=== PATIENT | female | born 1945 | race Caucasian/White ===

== ENCOUNTER 2019-12-23 15:12 | Outpatient (CLI) | payer MEDICARE, BC, SELFPAY ==
[2019-12-23 17:16] LABS: Vitamin D 25 Hydroxy 59.8 ng/mL
== END 2019-12-23 15:13 | disposition home or self-care (01) ==
LOC: ANHLAB 15:15
PROVIDERS: PCP Family Medicine Adolescent Medicine; Visit Provider Nurse Practitioner
DX: E55.9 Vitamin D deficiency, unspecified (principal)
CPT/HCPCS: 36415; 82306

== ENCOUNTER → 2020-04-12 14:06 | Outpatient (CLI) | payer MEDICARE, BC, SELFPAY ==
--- NOTE | ~2020-04-12 | MM_ITS ---
EXAMINATION: MM screening [facility] BI w jin HISTORY: Screening mammogram TECHNIQUE: Craniocaudal and mediolateral oblique 3-D tomosynthesis images were obtained and synthetic 2-D images were generated. CAD analysis was submitted and interpreted. COMPARISON: 02/03/2019, 08/14/2018, 01/30/2018, 09/01/2017 BREAST PARENCHYMAL COMPOSITION: There are scattered areas of fibroglandular density. FINDINGS: Scattered benign-appearing calcifications are present. Stable surgical changes are present in the upper outer quadrant of the right breast. There is no evidence of suspicious mass, calcificati on, or architectural distortion to suggest malignancy in either breast. There has been no suspicious interval change. IMPRESSION: 1. No mammographic evidence of malignancy. 2. Recommend routine screening mammography in one year. BI-RADS Category 2: Benign finding(s). Reviewed, dictated and finalized at location A.
== END ==
PROVIDERS: Visit Provider Nurse Practitioner
DX: Z12.31 Encounter for screening mammogram for malignant neoplasm of breast (principal)
CPT/HCPCS: 77063; 77067

== ENCOUNTER 2020-05-29 08:35 | Outpatient (CLI) | payer MEDICARE, BC, SELFPAY ==
[2020-05-29 11:46] LABS: Hemoglobin A1C 5.9 % (<5.7)
[2020-05-29 11:53] LABS: Alanine Aminotransferase 25 U/L (4-35); Alkaline Phosphatase 54 U/L (38-126); Anion Gap 6 mmol/L (8-16); Aspartate Amino Transferase 56 U/L (14-36); Blood Urea Nitrogen 17 mg/dL (7-17); Calcium 9.4 mg/dL (8.4-10.2); Carbon Dioxide 32 mmol/L (22-30); Chloride 103 mmol/L (98-107); Cholesterol 185 mg/dL (0-200); Estimated Glomerular Filt Rate > 60; Glucose 131 mg/dL (65-105); HDL Direct 59 mg/dL; Sodium 141 mmol/L (137-145); Triglycerides 147 mg/dL (<150)
[2020-05-29 12:04] LABS: LDL Cholesterol Direct 110 mg/dL
== END 2020-05-29 08:36 | disposition home or self-care (01) ==
PROVIDERS: PCP Family Medicine Adolescent Medicine; Referring Provider Internal Medicine Medical Oncology; Visit Provider Family Medicine Adolescent Medicine
DX: E78.00 Pure hypercholesterolemia, unspecified (principal); E11.9 Type 2 diabetes mellitus without complications; I10 Essential (primary) hypertension; F03.90 Unspecified dementia, unspecified severity, without behavioral disturbance, psychotic disturbance, mood disturbance, and anxiety
CPT/HCPCS: 36415; 80053; 80061; 82607; 83036; 84443

== ENCOUNTER 2020-12-25 14:30 | Outpatient (CLI) | payer MEDICARE, BC, SELFPAY ==
[2020-12-25 17:52] LABS: Vitamin D 25 Hydroxy 68.5 ng/mL
== END 2020-12-25 14:31 | disposition home or self-care (01) ==
PROVIDERS: PCP Family Medicine Adolescent Medicine; Visit Provider Obstetrics & Gynecology Gynecology
DX: E55.9 Vitamin D deficiency, unspecified (principal)
CPT/HCPCS: 36415; 82306

== ENCOUNTER 2021-02-21 09:52 | Outpatient (CLI) | payer MEDICARE, BC, SELFPAY ==
[2021-02-21 10:34] LABS: Alanine Aminotransferase 19 U/L (4-35); Albumin Level 3.7 g/dL (3.5-5.1); Alkaline Phosphatase 50 U/L (38-126); Anion Gap 8 mmol/L (8-16); Aspartate Amino Transferase 45 U/L (14-36); Bilirubin,Total 0.8 mg/dL (0.2-1.3); Blood Urea Nitrogen 15 mg/dL (7-17); Calcium 9.1 mg/dL (8.4-10.2); Carbon Dioxide 26 mmol/L (22-30); Chloride 102 mmol/L (98-107); Cholesterol 166 mg/dL (0-200); Estimated Glomerular Filt Rate > 60; Glucose 171 mg/dL (65-110); HDL Direct 53 mg/dL; Potassium 3.9 mmol/L (3.4-5.0); Sodium 136 mmol/L (137-145); Triglycerides 134 mg/dL (<150)
[2021-02-21 10:46] LABS: LDL Cholesterol Direct 88 mg/dL
[2021-02-21 11:32] LABS: Hemoglobin A1C 6.5 % (<5.7)
== END 2021-02-21 09:53 | disposition home or self-care (01) ==
LOC: ANHLAB 09:59
PROVIDERS: PCP Family Medicine Adolescent Medicine; Visit Provider Family Medicine Adolescent Medicine
DX: E78.00 Pure hypercholesterolemia, unspecified (principal); E11.9 Type 2 diabetes mellitus without complications; I10 Essential (primary) hypertension
CPT/HCPCS: 36415; 80053; 80061; 83036

== ENCOUNTER → 2021-02-27 14:46 | Outpatient (CLI) | payer MEDICARE, BC, SELFPAY ==
--- NOTE | ~2021-02-27 | MR_ITS ---
EXAMINATION: MR shoulder LT wo con DATE: 02/27/2021 15:44 INDICATION: Left shoulder pain post injury 4 months prior TECHNIQUE: Magnetic resonance imaging (MRI) of the left shoulder was performed without intravenous co ntrast. Sequences included axial PD-weighted FS FSE, coronal oblique PD-weighted FS FSE, coronal obli que T2-weighted FS FSE, sagittal PD-weighted FS FSE, and sagittal T1-weighted SE. COMPARISON: None. FINDINGS: Coracoacromial arch: The acromion undersurface is curved in morphology (type II). The coracoacromial ligament is normal. M oderate acromioclavicular osteoarthritis. Rotator cuff: Moderate supraspinatus and mild infraspinatus tendinopathy. There is a tear at the critical zone of t he supraspinatus tendon with an 11 x 11 mm tear defect demonstrating fluid signal intensity surroundi ng small amount of irregular frayed and lax appearing tendon fibers which are of indeterminate functi onal integrity. The tear involves portions of both the articular and bursal side of the tendon, likel y with full-thickness communication. The teres minor tendon is normal. Mild subscapularis tendinopath y without discrete tear. No asymmetric rotator cuff muscle atrophy. Biceps tendon, glenoid labrum and glenohumeral cartilage: Mild tendinopathy at the junction of the intra-articular and extra articular portion of the long head biceps tendon without discrete tear. Glenoid labrum is normal. Glenohumeral cartilage is normal. Fluid: Small glenohumeral joint effusion with proportional small amount of fluid extending along the long he ad biceps tendon sheath. 5 mm loose body at the posterior axillary recess. Small amount of fluid kavita ng with mild synovitis in the subacromial/subdeltoid bursa consistent with mild bursitis. There is al so a small joint effusion at the acromioclavicular joint which potentially communicates with the suba cromial/subdeltoid bursa. Bones: Bone alignment is normal. No fracture or pathologic marrow replacing process. Mild to moderate cystic changes at the greater tuberosity, both with the superior facet and more prominently at the tear zon e along the posterior greater tuberosity. IMPRESSION: 1. Moderate supraspinatus tendinopathy with 11 x 11 mm tear defect at the critical zone which is eith er full-thickness or high-grade partial width both articular and bursal surface involvement. It is un clear whether the irregular appearing ligament fibers within the tear defect remain either intact or with any significant degree of functional integrity. 2. Mild tendinopathy of the long head biceps tendon without discrete tear. 3. Moderate acromioclavicular osteoarthritis. 4. Mild subacromial/subdeltoid bursitis. Reviewed, dictated and finalized at location A. IMPRESSION: 1. Moderate supraspinatus tendinopathy with 11 x 11 mm tear defect at the criti april zone which is either full-thickness or high-grade partial width both articu lar and bursal surface involvement. It is unclear whether the irregular appeari ng ligament fibers within the tear defect remain either intact or with any sign ificant degree of functional integrity. 2. Mild tendinopathy of the long head biceps tendon without discrete tear. 3. Moderate acromioclavicular osteoarthritis. 4. Mild subacromial/subdeltoid bursitis.
== END ==
PROVIDERS: PCP Family Medicine Adolescent Medicine; Visit Provider Family Medicine Adolescent Medicine
DX: M25.512 Pain in left shoulder (principal); S46.012A Strain of muscle(s) and tendon(s) of the rotator cuff of left shoulder, initial encounter; M75.82 Other shoulder lesions, left shoulder; M19.012 Primary osteoarthritis, left shoulder; M75.52 Bursitis of left shoulder
CPT/HCPCS: 73221

== ENCOUNTER → 2021-04-14 10:37 | Outpatient (CLI) | payer MEDICARE, BC, SELFPAY ==
--- NOTE | ~2021-04-14 | MM_ITS ---
EXAMINATION: MM screening [facility] BI w jin HISTORY: Screening mammogram TECHNIQUE: Craniocaudal and mediolateral oblique 3-D tomosynthesis images were obtained and synthetic 2-D images were generated. CAD analysis was submitted and interpreted. COMPARISON: 04/12/2020, 02/03/2019 BREAST PARENCHYMAL COMPOSITION: There are scattered areas of fibroglandular density. FINDINGS: Scattered benign-appearing calcifications are present. There is chronic skin thickening of the left breast, consistent with sequela of radiation treatment. There is no evidence of suspicious m ass, calcification, or architectural distortion to suggest malignancy in either breast. There has bee n no suspicious interval change. IMPRESSION: 1. No mammographic evidence of malignancy. 2. Recommend routine screening mammography in one year. BI-RADS Category 2: Benign finding(s). Reviewed, dictated and finalized at location A.
== END ==
PROVIDERS: Visit Provider Obstetrics & Gynecology Gynecology
DX: Z12.31 Encounter for screening mammogram for malignant neoplasm of breast (principal)
CPT/HCPCS: 77063; 77067

== ENCOUNTER 2021-05-15 10:00 | Outpatient (RCR) | payer MEDICARE, BC, SELFPAY ==
--- NOTE | 2021-03-20 12:28 | PTOPEVAL ---
PHYSICAL THERAPY EVALUATION AND PLAN OF CARE Thank you for referring Marian Alcazar to [facility].? The patient is scheduled to be seen for therapy? 2x/week for 4 weeks. Please review, sign, date and return this plan of care TONO. I agree with and certify that the following plan of care is medically necessary. Referring Physician Date Attending Provider: Prashant Ramirez MD Evaluation Diagnosis low back pain Onset 11/11/2020 Subjective Information Marian reports that she has Query Text:As Reported By Patient/ had back pain for the last 4-5 Family months. She reports a lot of pain in the left glutes and across low back. The worse is when she has to be on her feet for a long time, walking in the store, carrying groceries, or bending over and doing laundry. There is some soreness in the left glutes when sitting - has to sit a little perched. First thing in the morning is typically ok. no injury to the back, but she notes she has spent a lot more time in her garden this summer doing a lot more bending over forward Self Report Pain Assessment Left Back Reported Pain Level 4 Pain Frequency Chronic,Intermittent Greatest Pain Intensity 9 Pain Aggravating Factors Bending,Lifting,Walking,Weight Bearing/Standing Pain Behaviors None Pain Score Pain Score 4: Self Report Interventions Used Interventions Used By Clinicians Exercise,Heat,Manual Therapy Techniques Pain Relief Interventions Used By Heat Patient Other Alleviating Interventions biofreeze Cervical and Lumbar ROM Lumbar ROM Lumbar Flexion Active Mid Vanegas Query Text:Hands to: Lateral Rotation Right (0-45) 40 Query Text:Active in Degrees Lateral Rotation Left (0-45) 25 Query Text:Active in Degrees Lumbar Comments hinging at L2 with extension Cervical and Lumbar Muscle Testing Lumbar Strength Upper Abdominal Strength 3-Fair- Lower Abdominal Strength 2+Poor+ Lower Extremity Muscle Strength Testing Hip Strength Right Hip Flexion Strength 3+ Fair + Hip Extension Strength 3- Fair - Hip Abduction Strength 3- Fair - Left Hip Flexion Strength 3 Fair Hip Ext
--- NOTE | 2021-04-05 09:32 | PCPTNOTE ---
Patient called & cancelled scheduled appointment this date due to illness, coughing and can't breath with mask on.
--- NOTE | 2021-04-16 11:57 | PTOPEVAL ---
PHYSICAL THERAPY PROGRESS REPORT Thank you for referring Marian Alcazar to [facility].? The patient is scheduled to be seen for therapy? 2x/week for 4 weeks. Please review, sign, date and return this plan of care TONO. I agree with and certify that the following plan of care is medically necessary. Referring Physician Date Attending Provider: Prashant Ramirez MD Progress Diagnosis low back pain Onset 11/11/2020 Subjective Information States that her back/hip is Query Text:As Reported By Patient/ doing overall better. Reports Family that the exercises do seem to help. This morning she is a bit tender but overall she thinks the left shoulder hurts worse than the back/hip. Left shoulder is a little sore possibly because of sleeping. States that she was working on [employer] up on [employer] Pain Scale Used Numeric (1 - 10) Self Report Pain Assessment Left Shoulder(s) Reported Pain Level 4 Pain Description Aching Pain Frequency Acute Left Back Reported Pain Level 1 Pain Frequency Chronic,Intermittent Pain Aggravating Factors Bending,Lifting,Walking,Weight Bearing/Standing Pain Behaviors None Pain Score Pain Score 4,1: Self Report Interventions Used Interventions Used By Clinicians Exercise,Heat,Manual Therapy Techniques Pain Relief Interventions Used By Heat Patient Other Alleviating Interventions biofreeze Cervical and Lumbar ROM Lumbar ROM Lumbar Flexion Active Mid [place]egas Query Text:Hands to: Lateral Rotation Right (0-45) 40 Query Text:Active in Degrees Lateral Rotation Left (0-45) 30 Query Text:Active in Degrees Lumbar Comments hinging at L2 with extension Upper Extremity Range of Motion Scapular/ Shoulder Range of Motion Left Shoulder Flexion - Active 140 Shoulder Abduction - Active 140 Shoulder Medial Rotation - Active T12 Query Text:Reach Behind the Back Shoulder Lateral Rotation - Active back of head Query Text:Reach Behind the Head Scapular/Shoulder Range of Motion she is hesitant to move but Comments otherwise moves well; there is some catching and popping in the left shoulder Lower Extremity Muscle Strength Testing Hip Strength Right Hip Flexion Strength 4- Good - Hip Extension Strength 3+ Fair + Hip Abduction Str
--- NOTE | 2021-05-15 10:49 | PTOPEVAL ---
PHYSICAL THERAPY DISCHARGE NOTE Thank you for referring Marian Alcazar to [facility].? Please review, sign, date and return this plan of care TONO. I agree with and certify that the following plan of care is medically necessary. Referring Physician Date Attending Provider: Prashant Ramirez MD Discharge Diagnosis low back pain Onset 11/11/2020 Subjective Information States that she is overall Query Text:As Reported By Patient/ doing really well. Dressing a Family lot better . Does not trust her left arm to hold something heavier to the 2nd shelf in the cabinet. Still has an episode of pain every couple of days but cannot speak to why unless it is that she is feeling better and tries to do more but she is really not sure. Interventions Used Interventions Used By Clinicians Exercise,Heat,Manual Therapy Techniques Pain Relief Interventions Used By Heat Patient Other Alleviating Interventions biofreeze Cervical and Lumbar ROM Lumbar ROM Lumbar Flexion Active Mid Vanegas,Ankle Query Text:Hands to: Lateral Rotation Right (0-45) 40 Query Text:Active in Degrees Lateral Rotation Left (0-45) 40 Query Text:Active in Degrees Upper Extremity Range of Motion Scapular/ Shoulder Range of Motion Left Shoulder Flexion - Active 155 Shoulder Abduction - Active 155 Shoulder Medial Rotation - Active T12 Query Text:Reach Behind the Back Shoulder Lateral Rotation - Active 65 Shoulder Lateral Rotation - Active back of head Query Text:Reach Behind the Head Scapular/Shoulder Range of Motion notes some popping in the Comments shoulder at times Lower Extremity Muscle Strength Testing Hip Strength Right Hip Flexion Strength 4+ Good + Hip Extension Strength 4 Good Hip Abduction Strength 4 Good Left Hip Flexion Strength 4+ Good + Hip Extension Strength 4 Good Hip Abduction Strength 4 Good Knee Strength Bilateral Knee Flexion Strength 5 Normal Knee Extension Strength 5 Normal Upper Extremity Muscle Strength Testing Scapular/Shoulder Left Shoulder Flexion Strength 4+ Good + Shoulder Abduction Strength 4+ Good + Shoulder Medial Rotation Strength 5 Normal Shoulder Lateral Rotation Strength 4+ Good + Muscle Length Testing Piriformis w/Hip Flexion >90 Degrees (R) Mild Tightness,(L) Mild Tightness Left Hamstring Length -50 Que
== END 2021-05-15 15:50 | disposition home or self-care (01) ==
LOC: ANHPT 10:00
PROVIDERS: PCP Family Medicine Adolescent Medicine; Visit Provider Family Medicine Adolescent Medicine
DX: M54.5 Low back pain (principal)
CPT/HCPCS: 97110; 97140; 97162

== ENCOUNTER 2021-12-31 11:00 | Outpatient (CLI) | payer MEDICARE, BC, SELFPAY ==
[2021-12-31 12:07] LABS: Vitamin D 25 Hydroxy 67.2 ng/mL
== END 2021-12-31 11:01 | disposition home or self-care (01) ==
LOC: ANHLAB 11:05
PROVIDERS: Visit Provider Obstetrics & Gynecology Gynecology
DX: Z13.21 Encounter for screening for nutritional disorder (principal); E55.9 Vitamin D deficiency, unspecified
CPT/HCPCS: 36415; 82306

== ENCOUNTER 2022-04-24 08:55 | Outpatient (CLI) | payer MEDICARE, BC, SELFPAY ==
[2022-04-24 09:27] LABS: Alanine Aminotransferase 22 U/L (6-35); Albumin Level 3.7 g/dL (3.5-5.1); Alkaline Phosphatase 52 U/L (38-126); Anion Gap 9 mmol/L (8-16); Aspartate Amino Transferase 54 U/L (14-36); Bilirubin,Total 0.9 mg/dL (0.2-1.3); Blood Urea Nitrogen 11 mg/dL (7-17); Calcium 8.5 mg/dL (8.4-10.2); Carbon Dioxide 27 mmol/L (22-30); Chloride 105 mmol/L (98-107); Cholesterol 157 mg/dL (0-200); Estimated Glomerular Filt Rate > 60; Glucose 134 mg/dL (65-110); HDL Direct 60 mg/dL; Potassium 3.7 mmol/L (3.4-5.0); Sodium 141 mmol/L (137-145); Triglycerides 104 mg/dL (<150)
[2022-04-24 09:38] LABS: LDL Cholesterol Direct 83 mg/dL
[2022-04-24 09:46] LABS: Hemoglobin A1C 6.9 % (<5.7)
== END 2022-04-24 08:56 | disposition home or self-care (01) ==
PROVIDERS: PCP Family Medicine Adolescent Medicine; Visit Provider Physician Assistant
DX: E11.9 Type 2 diabetes mellitus without complications (principal); E78.00 Pure hypercholesterolemia, unspecified; I10 Essential (primary) hypertension
CPT/HCPCS: 36415; 80053; 80061; 83036

== ENCOUNTER 2022-05-10 08:21 | Outpatient (CLI) | payer MEDICARE, BC, SELFPAY ==
--- NOTE | 2022-05-10 08:46 | ECHO_ITS ---
Patient Info Name: Marian Alcazar Age: 76 years : 1945 Gender: Female Ht: 63 in Wt: 141 lbs BSA: 1.70 m2 HR: 68 bpm BP: 151 / 69 mmHg Technical Quality: Good Exam Date: 05/10/2022 9:08 AM Exam Location: [facility] Patient Status: Outpatient Admit Date: 05/10/2022 Staff Ordering Physician: Meryl Wolf PA-C Digital Associate: Penny Atkins RDCS Attending Provider: Meryl Wolf PA-C Referring Physician: Maryann SHIN; Exam Type: CA echo doppler color flow Study Info Indications - cardiac murmur Complete two-dimensional, color flow and Doppler transthoracic echocardiogram is performed. Summary 1. Complete two-dimensional, color flow and Doppler transthoracic echocardiogram is performed. 2. Left ventricular chamber dimension is normal. 3. Left ventricular systolic function is normal, estimated at 60-65%. 4. The left ventricular diastolic function is grade I diastolic dysfunction. 5. E/e' 11 is mildly elevated. 6. Left atrial chamber dimension is severely enlarged. 7. Right atrial chamber dimension is mildly enlarged. 8. There is moderate aortic valve sclerosis. 9. Calcified mass attached to noncoronary cusp of aortic valve measuring 0.8 cm x0.4 cm likely calcification. If clinically indicated consider SHIVANI. 10. There is mild to moderate mitral valve regurgitation. 11. No pulmonary hypertension, estimated pulmonary arterial systolic pressure is 29 mmHg. Left Ventricle E/e' 11 is mildly elevated. Left ventricular chamber dimension is normal. Left ventricular systolic function is normal, estimated at 60-65%. The left ventricular diastolic function is grade I diastolic dysfunction. Right Ventricle Right ventricular chamber dimension is normal. Right ventricular systolic function is normal. Left Atria Left atrial chamber dimension is severely enlarged. Right Atria Right atrial chamber dimension is mildly enlarged. Aortic Valve Calcified mass attached to noncoronary cusp of aortic valve measuring 0.8 cm x0.4 cm likely calcification. If clinically indicated consider SHIVANI. The aortic valve is trileaflet. There is moderate aortic valve sclerosis. There is no aortic valve stenosis. There is no aortic valve regurgitation. Pulmonic Valve There is no pulmonic regurgitation. Mitral Valve There is no mitral valve stenosis. There is mild to moderate mitral valve regurgitation. Tricuspid Valve There is no tricuspid valve regurgitation. No pulmonary hypertension, estimated pulmonary arterial systolic pressure is 29 mmHg. Pericardium/Pleural There is no pericardial effusion. Inferior Vena Cava Normal inferior vena cava with >50% collapse upon inspiration consistent with normal right atrial pressure, 5 mmHg. Aorta The aortic root size at the sinus of Valsalva is normal. Left Ventricular Outflow Tract Name Value Normal LVOT 2D LVOT Diameter 2.0 cm LVOT Doppler LVOT Peak Gradient 5 mmHg LVOT Mean Gradient 3 mmHg LVOT VTI 26 cm LVOT VTI/AV VTI Ratio 0.6
== END 2022-05-10 08:22 | disposition home or self-care (01) ==
LOC: ANHCARD 08:23
PROVIDERS: PCP Family Medicine Adolescent Medicine; Visit Provider Physician Assistant
DX: Z12.11 Encounter for screening for malignant neoplasm of colon (principal); R01.1 Cardiac murmur, unspecified; I51.7 Cardiomegaly; I35.8 Other nonrheumatic aortic valve disorders
CPT/HCPCS: 93306

== ENCOUNTER 2022-05-22 11:10 | Outpatient (CLI) | payer MEDICARE, BC, SELFPAY | END 2022-05-22 11:11 | disposition home or self-care (01) | PROVIDERS: PCP Family Medicine Adolescent Medicine; Visit Provider Family Medicine Adolescent Medicine | DX: R30.0 Dysuria (principal) | CPT/HCPCS: 87077; 87086; 87186 ==

== ENCOUNTER 2022-06-13 00:32 | Day surgery (SDC) | payer MEDICARE, BC, SELFPAY ==
[2022-05-28 14:54] VITALS: BMI 32.4
[2022-06-13 10:41] VITALS: BP 148/71; PULSE 83; RESP 18; TEMP 36.2; O2SAT 100; BMI 32.1
--- NOTE | 2022-06-13 10:42 | PM.HPGS ---
History of Present Illness History of Present Illness Consent: Risks, benefits, and alternatives have been discussed and questions answered. Patient agrees to proceed with procedure. Chief complaint: Fam Hx of colon cancer Narrative: Marian Alcazar is a 76 year old female Presents for screening colonoscopy. Family history is significant that her father had colon cancer. Patient's current weight appetite and bowel movements are normal. She denies abdominal pain. She has had no bleeding. Screening colonoscopy is to be performed today. Review of Systems Review of Systems: Review of systems noncontributory. [facility] Past Medical History Medical History Complete tear of left rotator cuff GERD (gastroesophageal reflux disease) History of breast cancer 2007 left 2017. right DCIS HTN (hypertension) 2006 HX: breast cancer Surgical History Surgical History H/O breast surgery 2007, left 2017, right, partial mastectomy History of bilateral carpal tunnel release History of bilateral knee replacement Right, 2018 Left, 2008 History of cholecystectomy History of partial hysterectomy History of vaginal surgery 2012 Transvaginal urethral sling Hx of total knee arthroplasty S/P skin biopsy Family History Family History Father Cancer Carcinoma of colon Colon polyp Sibling Hyperlipidemia Other Breast cancer Social History Social History Smoking status: Never smoker Second hand tobacco smoke exposure: No Alcohol intake: never Substance use: never Substance use type: does not use Living arrangements: alone Gender identity (if verbalized by the patient): Female Sexual Orientation (if Verbalized by the Patient): Straight or Heterosexual Spiritual care concerns: No Agree to blood products: Yes Meds Home Medications and Allergies Home Medications Medication Instructions Recorded Confirmed Type omeprazole 20 mg capsule,delayed See Rx Instructions .Route 11/05/21 06/12/22 Rx release .COMPLEX #180 caps ezetimibe 10 mg tablet 10 mg PO DAILY #90 tabs 01/28/22 06/12/22 Rx losartan 100 mg tablet 100 mg PO DAILY #90 tabs 03/25/22 06/12/22 Rx sodium,potassium,mag sulfates 17.5 See Rx Instructions PO .COMPLEX 05/01/22 06/13/22 Rx gram-3.13 gram-1.6 gram oral soln #354 mL (Suprep Bowel Prep Kit) sulfamethoxazole 800 1 tablet PO Q12H #14 tabs 05/24/22 06/12/22 Rx mg-trimethoprim 160 mg tablet (Bactrim DS) hydrochlorothiazide 25 mg tablet 25 mg PO DAILY #90 tabs 06/11/22 06/13/22 Rx Allergies Allergy/AdvReac Type Severity Reaction Status Date / Time adhesive Allergy Mild Rash AND Verified 06/13/22 10:39 ITCHING morphine Allergy Mild NAUSEA AND Verified 06/13/22 10:39 VOMITING benzonatate AdvReac mouth Verified 06/13/22 10:39 tingling clarithromycin AdvReac emesis Verified 06/13/22 10:39 niacin AdvReac unknown Verified 06/13/22 10:39 [From Niaspan Extended-Release] [id number] Reductase AdvReac myalgias Verified 06/13/22 10:39 Inhibitor Exam Narrative: Physical exam reveals patient to be alert. Vital signs stable. HEENT exam is unremarkable. Patient is anicteric. Lungs are clear to auscultation and percussion. Heart is without murmur or extra sounds. Abdomen bowel sounds present soft nontender with no organomegaly. Digital external rectal exam is normal. Assessment and Plan Assessment and plan (1) Family history of colon cancer in father: Code(s): Z80.0 - Family history of malignant neoplasm of digestive organs Status: Acute Assessment and Plan: Patient has a family history of colon cancer in her father. Plan for surveillance colonoscopy now. This being considered 5 yea
[2022-06-13] MEDS: LACTATED RINGERS 1,000 ML 150 ML IV CONT (10:47)
--- NOTE | 2022-06-13 10:49 | WPDANESEPPF ---
Anes - Initial Pre Proc Eval Procedure: Operation Date: 06/13/22 11:00 Proposed Procedures p Screening Colonoscopy - Travis Jernigan MD Date/Time: 06/13/22 10:49 Surgeon: Travis Jernigan MD Pre Op Diagnosis: Fam Hx of colon cancer Patient Data Age: 76 Gender: F Height: 1.6 m Weight: 82.2 kg Last Vital Signs Temp 36.2 C L 06/13/22 10:41 Pulse 83 06/13/22 10:41 Resp 18 06/13/22 10:41 BP 148/71 H 06/13/22 10:41 Pulse Ox 100 06/13/22 10:41 O2 Del Method Room Air 06/13/22 10:41 Allergies Allergy/AdvReac Type Severity Reaction Status Date / Time adhesive Allergy Mild Rash AND Verified 06/13/22 10:39 ITCHING morphine Allergy Mild NAUSEA AND Verified 06/13/22 10:39 VOMITING benzonatate AdvReac mouth Verified 06/13/22 10:39 tingling clarithromycin AdvReac emesis Verified 06/13/22 10:39 niacin AdvReac unknown Verified 06/13/22 10:39 [From Niaspan Extended-Release] [id number] Reductase AdvReac myalgias Verified 06/13/22 10:39 Inhibitor Home Medications Medication Instructions Recorded Confirmed Type omeprazole 20 mg capsule,delayed See Rx Instructions .Route 11/05/21 06/12/22 Rx release .COMPLEX #180 caps ezetimibe 10 mg tablet 10 mg PO DAILY #90 tabs 01/28/22 06/12/22 Rx losartan 100 mg tablet 100 mg PO DAILY #90 tabs 03/25/22 06/12/22 Rx sodium,potassium,mag sulfates 17.5 See Rx Instructions PO .COMPLEX 05/01/22 06/13/22 Rx gram-3.13 gram-1.6 gram oral soln #354 mL (Suprep Bowel Prep Kit) sulfamethoxazole 800 1 tablet PO Q12H #14 tabs 05/24/22 06/12/22 Rx mg-trimethoprim 160 mg tablet (Bactrim DS) hydrochlorothiazide 25 mg tablet 25 mg PO DAILY #90 tabs 06/11/22 06/13/22 Rx Patient hx anesthesia problems: none Family hx anesthesia problems: none Results Review: All pre-operative results and documents have been reviewed as part of the pre-operative evaluation. [facility] Past Medical History Medical History Complete tear of left rotator cuff GERD (gastroesophageal reflux disease) History of breast cancer 2007 left 2017. right DCIS HTN (hypertension) 2006 HX: breast cancer Pure hypercholesterolemia, unspecified Surgical History Surgical History H/O breast surgery 2007, left 2017, right, partial mastectomy History of bilateral carpal tunnel release History of bilateral knee replacement Right, 2018 Left, 2008 History of cholecystectomy History of partial hysterectomy History of vaginal surgery 2012 Transvaginal urethral sling Hx of total knee arthroplasty S/P skin biopsy Family History Family History Father Cancer Carcinoma of colon Colon polyp Sibling Hyperlipidemia Other Breast cancer Social History Social History Smoking status: Never smoker Second hand tobacco smoke exposure: No Alcohol intake: never Substance use: never Substance use type: does not use Living arrangements: alone Gender identity (if verbalized by the patient): Female Sexual Orientation (if Verbalized by the Patient): Straight or Heterosexual Spiritual care concerns: No Agree to blood products: Yes Anes - Eval Final PreProcedure Day of Procedure 06/13/22 10:49 Patient weight: obese Heart: regular rate and rhythm Lungs: clear to auscultation Airway: Mallampati scale class II Neurological: other (alert) Last oral intake: >/= 8 hours ASA classification: II Emergent: no Anesthetic plan: proceed Anesthesia type and monitoring: general GIVS and standard monitoring Results Review: All pre-operative results and documents have been reviewed as part of the pre-operative evaluation. Informed Consent: The patient's anesthetic plan and its attendant risks and benefits were
[2022-06-13 11:10] VITALS: BP 119/48; PULSE 72; RESP 19; O2SAT 98
[2022-06-13 11:20] VITALS: BP 135/47; PULSE 65; RESP 16; O2SAT 100
[2022-06-13 11:30] VITALS: BP 140/52; PULSE 66; RESP 18; O2SAT 98
== END 2022-06-13 11:44 | disposition home or self-care (01) ==
PROVIDERS: PCP Family Medicine Adolescent Medicine; Visit Provider Internal Medicine Gastroenterology
PROC: 0DJD8ZZ Inspection of Lower Intestinal Tract, Via Natural or Artificial Opening Endoscopic (ICD-10-PCS; CPT 45378; principal; 2022-06-13 11:00)
DX: Z12.11 Encounter for screening for malignant neoplasm of colon (principal); D12.0 Benign neoplasm of cecum; D17.5 Benign lipomatous neoplasm of intra-abdominal organs; K64.8 Other hemorrhoids; K57.30 Diverticulosis of large intestine without perforation or abscess without bleeding; Z80.0 Family history of malignant neoplasm of digestive organs; I10 Essential (primary) hypertension; E78.00 Pure hypercholesterolemia, unspecified; K21.9 Gastro-esophageal reflux disease without esophagitis; Z85.3 Personal history of malignant neoplasm of breast; E66.9 Obesity, unspecified; Z68.32 Body mass index [BMI] 32.0-32.9, adult
CPT/HCPCS: 45385; 88305; J2704; J7120

== ENCOUNTER → 2022-07-23 14:35 | Outpatient (CLI) | payer MEDICARE, BC, SELFPAY ==
--- NOTE | ~2022-07-23 | DEXA_ITS ---
Bone Density Report Name: MAKSIM PROCTOR Age: 76 Sex: Female Ethnicity: White Date of : 1945 Indication: postmenopausal; screening for osteoporosis; height loss; hysterectomy; Referring Provider: MIMI, LENNOX Study: Bone densitometry was performed. Exam Date: July 23, 2022 Accession number: [id number] Bone Density: Region BMD T-score Z-score Classification AP Spine (L1, L2, L3) 1.197 1.6 4.1 Normal Femoral Neck (Left) 0.956 1.0 3.1 Normal Total Hip (Left) 1.014 0.6 2.5 Normal Femoral Neck (Right) 0.920 0.6 2.8 Normal Total Hip (Right) 0.995 0.4 2.3 Normal Total Hip Mean 1.005 0.5 2.4 Normal World Health Organization criteria for BMD impression classify patients as: Normal (T-score at or above -1.0), Osteopenia (T-score between -1.0 and -2.5), or Osteoporosis (T-score at or below -2.5). 10-year Fracture Risk: FRAX not reported because: All T-scores for Spine Total, Hip Total, Femoral Neck at or above -1.0 Previous Exams: Region Exam Age BMD T-score BMD Change BMD Change Date g/cm2 vs Baseline vs Previous AP Spine(L1, L2, L3) 07/23/2022 76 1.197 1.6 0.110 0.020 12/30/2018 73 1.178 1.5 0.091 0.023 12/21/2014 69 1.155 1.2 0.068* 0.068* 07/13/2012 66 1.087 0.6 Total Hip(Left) 07/23/2022 76 1.014 0.6 0.083 0.045* 12/30/2018 73 0.969 0.2 0.039 -0.006 12/21/2014 69 0.975 0.3 0.045* 0.045* 07/13/2012 66 0.930 -0.1 Total Hip(Right) 07/23/2022 76 0.995 0.4 0.009 0.022 12/30/2018 73 0.973 0.3 -0.013 -0.021 12/21/2014 69 0.994 0.4 0.008 0.008 07/13/2012 66 0.986 0.4 *Denotes significance at 95% confidence level, LSC for AP Spine = 0.022 g/cm2, LSC for Total Hip = 0.027 g/cm2 Clinical Information Provided by Patient: Has used the following medications: Vitamin D Has the following medical conditions: Hysterectomy Patient maximum height was 63 Menopause Age: 42 No regular weight bearing exercise Onset of menses at age 13 Number of children 2 Impression: The patient has normal bone mass. No significant bone loss was observed. Discussion: LOW RISK OF FRACTURE; BONE DENSITY IS WELL ABOVE THE MINIMUM DESIRABLE LEVEL AND ABOVE AVERAGE FOR AGE AND SEX AT ALL SKELETAL SITES TESTED. This person'
--- NOTE | ~2022-07-23 | MM_ITS ---
EXAMINATION: MM screening davin BI w jin HISTORY: Screening mammogram TECHNIQUE: Craniocaudal and mediolateral oblique 3-D tomosynthesis images were obtained and synthetic 2-D images were generated. CAD analysis was submitted and interpreted. COMPARISON: 04/14/2021, 04/12/2020, 01/30/2019 bilateral screening mammogram examinations BREAST PARENCHYMAL COMPOSITION: The breasts are heterogeneously dense, which may obscure small masses . FINDINGS: Surgical clips are noted in the posterior upper outer right breast; history of prior partia l right mastectomy in 2017 for breast malignancy. History of left partial mastectomy and radiation for stage I cancer, 2005. Surgical clips are noted i n the left axillary area consistent with left axillary node dissection. Numerous bilateral benign-appearing calcifications are again noted. There is no evidence of suspiciou s mass, malignant calcification, or new architectural distortion to suggest malignancy in either [address]. Chronic bilateral skin thickening. There has been no suspicious interval change. IMPRESSION: 1. Successful bilateral partial mastectomy and left axillary node dissection. No mammographic evidenc e of malignancy. 2. Recommend routine screening mammography in one year. BI-RADS Category 2: Benign finding(s). Reviewed, dictated and finalized at location A. Y REMOVER IMPRESSION: 1. Successful bilateral partial mastectomy and left axillary node dissection. N o mammographic evidence of malignancy. 2. Recommend routine screening mammography in one year. BI-RADS Category 2: Benign finding(s).
== END ==
PROVIDERS: PCP Family Medicine Adolescent Medicine; Visit Provider Nurse Practitioner
DX: Z12.31 Encounter for screening mammogram for malignant neoplasm of breast (principal); Z78.0 Asymptomatic menopausal state
CPT/HCPCS: 77063; 77067; 77080

== ENCOUNTER 2022-10-03 10:29 | Outpatient (CLI) | payer MEDICARE, BC, SELFPAY | END 2022-10-03 10:30 | disposition home or self-care (01) | PROVIDERS: PCP Family Medicine Adolescent Medicine; Visit Provider Physician Assistant | DX: N30.00 Acute cystitis without hematuria (principal) | CPT/HCPCS: 87077; 87086; 87186 ==

== ENCOUNTER 2022-10-17 17:54 | Outpatient (NON) | payer MEDICARE, BC, SELFPAY ==
[2022-10-17 19:07] LABS: Toxigenic C. Diff NEGATIVE (NEGATIVE)
== END 2022-10-17 17:55 | disposition home or self-care (01) ==
LOC: ANHLAB 17:57
PROVIDERS: PCP Family Medicine Adolescent Medicine; Visit Provider Physician Assistant
DX: R19.7 Diarrhea, unspecified (principal)
CPT/HCPCS: 87045; 87427; 87493

== ENCOUNTER 2022-12-11 11:47 | Outpatient (CLI) | payer MEDICARE, BC, SELFPAY ==
[2022-12-11 12:52] LABS: Vitamin D 25 Hydroxy 60.9 ng/mL
== END 2022-12-11 11:48 | disposition home or self-care (01) ==
LOC: ANHLAB 11:50
PROVIDERS: PCP Family Medicine Adolescent Medicine; Visit Provider Nurse Practitioner
DX: E55.9 Vitamin D deficiency, unspecified (principal)
CPT/HCPCS: 36415; 82306

== ENCOUNTER 2023-04-25 12:41 | Outpatient (CLI) | payer MEDICARE, BC, SELFPAY ==
--- NOTE | 2023-04-25 13:10 | ECHO_ITS ---
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 Summary 1. Complete two-dimensional, color flow and Doppler transthoracic echocardiogram is performed. 2. Left ventricular chamber dimension is mildly enlarged. 3. Left ventricular systolic function is normal, estimated at 65-70%. 4. The left ventricular diastolic function is normal. 5. E/e' 9 is minimally elevated. 6. Left atrial chamber dimension is severely enlarged. 7. There is mild aortic valve sclerosis. 8. The mitral valve has mildly calcified annulus. 9. There is moderate mitral valve regurgitation. 10. There is trace tricuspid valve regurgitation. 11. No pulmonary hypertension, estimated pulmonary arterial systolic pressure is 30 mmHg. 12. There is trace pulmonic regurgitation. Left Ventricle E/e' 9 is minimally elevated. Left ventricular chamber dimension is mildly enlarged. Left ventricular systolic function is normal, estimated at 65-70%. The left ventricular diastolic function is normal. Right Ventricle Right ventricular systolic function is normal and with normal TAPSE 2.8 cm. Right ventricular chamber dimension is normal. Left Atria Left atrial chamber dimension is severely enlarged. Right Atria Right atrial chamber dimension is normal. Aortic Valve The aortic valve is trileaflet. There is mild aortic valve sclerosis. There is no aortic valve stenosis. There is no aortic valve regurgitation. Pulmonic Valve There is trace pulmonic regurgitation. Mitral Valve The mitral valve has mildly calcified annulus. There is no mitral valve stenosis. There is moderate mitral valve regurgitation. Tricuspid Valve There is trace tricuspid valve regurgitation. No pulmonary hypertension, estimated pulmonary arterial systolic pressure is 30 mmHg. Pericardium/Pleural There is no pericardial effusion. Inferior Vena Cava Normal inferior vena cava with >50% collapse upon inspiration consistent with normal right atrial pressure, 5 mmHg. Aorta The aortic root size at the sinus of Valsalva is normal. Left Ventricular Outflow Tract Name Value Normal LVOT 2D LVOT Diameter 2.0 cm LVOT Doppler LVOT Peak Gradient 5 mmHg LVOT Mean Gradient 2 mmHg LVOT VTI 24 cm LVOT VTI/AV VTI Ratio 0.5 LVOT Stroke Volume 75 ml LVOT CO 4.1 l/min LVOT CI 2.1 l/min/m2 Pulmonic Valve
== END 2023-04-25 12:42 | disposition home or self-care (01) ==
LOC: ANHCARD 12:42
PROVIDERS: PCP Family Medicine Adolescent Medicine; Visit Provider Internal Medicine Cardiovascular Disease
DX: I08.1 Rheumatic disorders of both mitral and tricuspid valves (principal)
CPT/HCPCS: 93306

== ENCOUNTER 2023-07-28 13:56 | Outpatient (CLI) | payer MEDICARE, BC, SELFPAY ==
[2023-07-28 14:25] LABS: Basophils Percent Auto 0.7 % (0.2-1.2); Eosinophils Absolute Auto 0.2 K/mm3 (0-0.3); Eosinophils Percent Auto 2.9 % (0-4.4); Hematocrit 36.6 % (37.0-47.0); Hemoglobin 11.7 g/dL (12.0-15.0); Immature Granulocyte Absolute 0.01 K/mm3 (0.00-0.031); Immature Granulocyte Percent A 0.2 % (0-0.5); Lymphocytes Absolute Auto 2.24 K/mm3 (0.9-3.2); Lymphocytes Percent Auto 37.8 % (18.3-44.2); Mean Corpuscular Hemoglobin 29.8 pg (26-34); Mean Corpuscular Volume 93.4 fl (80-100); Mean Platelet Volume 11.2 fl (7.4-10.4); Monocytes Absolute Auto 0.4 K/mm3 (0.1-0.6); Monocytes Percent Auto 6.1 % (2.6-8.5); Neutrophils Absolute Auto 3.1 K/mm3 (1.3-6.7); Neutrophils Percent Auto 52.3 % (45.5-73.1); Platelet Count Result 142 k/mm3 (150-375); Red Blood Count 3.92 M/mm3 (4.2-5.4); Red Cell Distribution Width 13.6 % (11.5-14.5); White Blood Count 5.9 K/mm3 (4.5-10.0)
[2023-07-28 14:35] LABS: Alanine Aminotransferase 17 U/L (6-35); Albumin Level 3.7 g/dL (3.5-5.1); Alkaline Phosphatase 84 U/L (38-126); Anion Gap 7 mmol/L (8-16); Aspartate Amino Transferase 44 U/L (14-36); Blood Urea Nitrogen 16 mg/dL (7-17); Calcium 9.2 mg/dL (8.4-10.2); Carbon Dioxide 30 mmol/L (22-30); Chloride 101 mmol/L (98-107); Cholesterol 201 mg/dL (0-200); Estimated Glomerular Filt Rate > 60; Glucose 297 mg/dL (65-110); HDL Direct 52 mg/dL; Potassium 3.5 mmol/L (3.4-5.0); Sodium 138 mmol/L (137-145); Triglycerides 119 mg/dL (<150)
[2023-07-28 15:01] LABS: LDL Cholesterol Direct 107 mg/dL
[2023-07-28 15:07] LABS: Hemoglobin A1C 7.9 % (<5.7)
== END 2023-07-28 13:57 | disposition home or self-care (01) ==
LOC: ANHLAB 14:02
PROVIDERS: PCP Family Medicine Adolescent Medicine; Visit Provider Nurse Practitioner Family
DX: M54.9 Dorsalgia, unspecified (principal); E78.5 Hyperlipidemia, unspecified; I35.8 Other nonrheumatic aortic valve disorders; E11.9 Type 2 diabetes mellitus without complications; I10 Essential (primary) hypertension; R19.7 Diarrhea, unspecified
CPT/HCPCS: 36415; 80053; 80061; 83036; 84443; 85025

== ENCOUNTER 2023-10-21 15:02 | Emergency (ER) | payer MEDICARE, BC, SELFPAY ==
[2023-10-21] VITALS (12 sets, daily range): BP systolic 126–183; BP diastolic 62–96; PULSE 40–82; RESP 10–18; TEMP 36.4–36.7; O2SAT 98–100
--- NOTE | ~2023-10-21 | XR_ITS ---
EXAMINATION: XR chest 1V 10/21/2023 16:09 INDICATION: Altered mental status PROCEDURE: AP view of the chest COMPARISON: No prior studies for comparison. FINDINGS: The lungs are clear. The cardiomediastinal silhouette is within normal limits. There are no pleural effusions. There is no pneumothorax suspected. There are surgical changes in the left ax illa IMPRESSION: 1: NO ACUTE CARDIOPULMONARY DISEASE. Reviewed, dictated and finalized at location A.
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
[2023-10-21 15:38] LABS: Basophils Percent Auto 0.7 % (0.2-1.2); Eosinophils Absolute Auto 0.1 K/mm3 (0-0.3); Eosinophils Percent Auto 2.1 % (0-4.4); Hematocrit 35.6 % (37.0-47.0); Hemoglobin 12.1 g/dL (12.0-15.0); Immature Granulocyte Absolute 0.01 K/mm3 (0.00-0.031); Immature Granulocyte Percent A 0.2 % (0-0.5); Immature Platelet Fraction Pct 7.2 % (0.9-11.2); Lymphocytes Absolute Auto 2.57 K/mm3 (0.9-3.2); Lymphocytes Percent Auto 44.2 % (18.3-44.2); Mean Corpuscular Hemoglobin 31.4 pg (26-34); Mean Corpuscular Volume 92.5 fl (80-100); Mean Platelet Volume 11.3 fl (7.4-10.4); Monocytes Absolute Auto 0.4 K/mm3 (0.1-0.6); Monocytes Percent Auto 6.7 % (2.6-8.5); Neutrophils Absolute Auto 2.7 K/mm3 (1.3-6.7); Neutrophils Percent Auto 46.1 % (45.5-73.1); Platelet Count Result 124 k/mm3 (150-375); Red Blood Count 3.85 M/mm3 (4.2-5.4); White Blood Count 5.8 K/mm3 (4.5-10.0)
[2023-10-21 15:41] LABS: Glucose Point of Care 109 mg/dl (65-105)
--- NOTE | 2023-10-21 15:48 | ECG_ITS ---
Measurements Intervals [place] Rate: 58 P: 90 WI: 172 QRS: -22 QRSD: 126 T: 42 QT: 450 Avg RR: 1027 QTc: 447 QTcB: 444 QTcF: 446 Interpretive Statements SINUS BRADYCARDIA WITH SINUS ARRHYTHMIA BORDERLINE LEFT AXIS DEVIATION [QRS AXIS < -20] MODERATE INTRAVENTRICULAR CONDUCTION DELAY [110+ ms QRS DURATION] BORDERLINE ECG SEE SCANNED COPY FOR SIGNATURE MTDD
[2023-10-21 15:49] LABS: Alanine Aminotransferase 18 U/L (6-35); Albumin Level 4.2 g/dL (3.5-5.1); Alkaline Phosphatase 73 U/L (38-126); Anion Gap 9 mmol/L (4-12); Aspartate Amino Transferase 42 U/L (14-36); Bilirubin,Total 1.2 mg/dL (0.2-1.3); Blood Urea Nitrogen 20 mg/dL (7-17); Calcium 10.2 mg/dL (8.4-10.2); Carbon Dioxide 25 mmol/L (22-30); Chloride 108 mmol/L (98-107); Estimated CRCL calculation 37 ml/min; Estimated Glomerular Filt Rate 48; Glucose 117 mg/dL (65-110); Potassium 3.1 mmol/L (3.4-5.0); Sodium 142 mmol/L (137-145)
[2023-10-21 15:56] LABS: INR 1.1; Prothrombin Time 15.1 Seconds (11.1-14.7)
[2023-10-21 15:57] LABS: Partial Thromboplastin Time 33.6 Seconds (22.3-36.8)
[2023-10-21] MEDS: POTASSIUM CHLORIDE 20 MEQ ER TABLET 40 MEQ PO (16:19)
[2023-10-21] MEDS: LACTATED RINGERS 1,000 ML 999 ML IV CONT (16:19)
[2023-10-21 17:17] LABS: Appearance Urine Clear (Clear); Bilirubin Urine Negative (Negative); Blood Urine Negative (Negative); Color Urine Yellow (Yellow); Glucose Urine UA Negative (Negative); Ketones Urine Negative (Negative); Leukocyte Esterase Ur Negative LEU/UL (Negative); Nitrate Urine Negative (Negative); Protein Urine Negative (Negative); Specific Grav Ur 1.008 (1.001-1.035); Urobilinogen Urine 0.2 mg/dL (<2.0)
[2023-10-21 17:26] LABS: Add Urine Microscopic? NO
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
== END 2023-10-21 18:15 | disposition home or self-care (01) ==
PROVIDERS: Family Medicine; Emergency Provider Emergency Medicine; PCP Family Medicine Adolescent Medicine
DX: R41.3 Other amnesia (principal); I10 Essential (primary) hypertension; E78.00 Pure hypercholesterolemia, unspecified; K21.9 Gastro-esophageal reflux disease without esophagitis; Z85.3 Personal history of malignant neoplasm of breast; R00.1 Bradycardia, unspecified; I45.9 Conduction disorder, unspecified; Z96.653 Presence of artificial knee joint, bilateral; Z90.49 Acquired absence of other specified parts of digestive tract; Z90.711 Acquired absence of uterus with remaining cervical stump; Z79.84 Long term (current) use of oral hypoglycemic drugs
CPT/HCPCS: 36415; 70450; 71045; 80053; 81003; 82948; 85025; 85055; 85610; 85730; 93005; 96360; 99284; A9270; J7120

== ENCOUNTER 2023-10-29 11:43 | Outpatient (CLI) | payer MEDICARE, BC, SELFPAY ==
[2023-10-29 12:23] LABS: Basophils Percent Auto 0.7 % (0.2-1.2); Eosinophils Absolute Auto 0.1 K/mm3 (0-0.3); Eosinophils Percent Auto 1.9 % (0-4.4); Hematocrit 33.9 % (37.0-47.0); Hemoglobin 11.6 g/dL (12.0-15.0); Immature Granulocyte Absolute 0.01 K/mm3 (0.00-0.031); Immature Granulocyte Percent A 0.2 % (0-0.5); Immature Platelet Fraction Pct 6.5 % (0.9-11.2); Lymphocytes Absolute Auto 1.72 K/mm3 (0.9-3.2); Lymphocytes Percent Auto 40.9 % (18.3-44.2); Mean Corpuscular HGB Conc 34.2 g/dl (32-36); Mean Corpuscular Hemoglobin 31.8 pg (26-34); Mean Corpuscular Volume 92.9 fl (80-100); Mean Platelet Volume 11.2 fl (7.4-10.4); Monocytes Absolute Auto 0.2 K/mm3 (0.1-0.6); Monocytes Percent Auto 4.5 % (2.6-8.5); Neutrophils Absolute Auto 2.2 K/mm3 (1.3-6.7); Neutrophils Percent Auto 51.8 % (45.5-73.1); Platelet Count Result 121 k/mm3 (150-375); Red Blood Count 3.65 M/mm3 (4.2-5.4); Red Cell Distribution Width 13.9 % (11.5-14.5); White Blood Count 4.2 K/mm3 (4.5-10.0)
[2023-10-29 13:03] LABS: Alanine Aminotransferase 17 U/L (6-35); Albumin Level 3.9 g/dL (3.5-5.1); Alkaline Phosphatase 66 U/L (38-126); Anion Gap 8 mmol/L (4-12); Aspartate Amino Transferase 38 U/L (14-36); Bilirubin,Total 1.1 mg/dL (0.2-1.3); Blood Urea Nitrogen 19 mg/dL (7-17); Calcium 9.7 mg/dL (8.4-10.2); Carbon Dioxide 25 mmol/L (22-30); Chloride 107 mmol/L (98-107); Estimated Glomerular Filt Rate 48; Glucose 214 mg/dL (65-110); Potassium 3.2 mmol/L (3.4-5.0); Sodium 140 mmol/L (137-145)
[2023-10-29 13:17] LABS: Creatinine Urine 77.6 mg/dL
[2023-10-29 13:17] LABS: Vitamin D 25 Hydroxy 63.8 ng/mL
[2023-10-29 13:29] LABS: MALB Creatinine Ratio 11.3 mg/g (0-30); Microalbumin Urine Random 8.8 mg/L (0-16.7)
[2023-10-29 16:01] LABS: Hemoglobin A1C 5.8 % (<5.7)
== END 2023-10-29 11:44 | disposition home or self-care (01) ==
LOC: ANHLAB 11:43
PROVIDERS: PCP Nurse Practitioner Family; Visit Provider Nurse Practitioner Family
DX: R00.1 Bradycardia, unspecified (principal); E11.9 Type 2 diabetes mellitus without complications; I10 Essential (primary) hypertension; Z79.899 Other long term (current) drug therapy
CPT/HCPCS: 36415; 80053; 82043; 82306; 82607; 83036; 84443; 85025; 85055

== ENCOUNTER 2023-11-05 13:38 | Outpatient (CLI) | payer MEDICARE, BC, SELFPAY ==
--- NOTE | 2023-11-12 12:02 | WPDHOLTEREM ---
Holter/Event Monitor Holter/Event Monitor Date of procedure: 11/05/23 Holter/Event Procedure: 48 Hr Holter Monitor Indications: Bradycardia Conclusion: 1. 48 hour holter monitor on 11/05/23. 2. Predominant rhythm is sinus rhythm. HR range 43-103 bpm; average 59 bpm. HR at 43 bpm was at 05:18. 3. There are 975 premature supraventricular complexes, 96 supraventricular couplets, 3 supraventricular bigeminy, and 9 supraventricular trigeminy. There are 2 episodes of atrial tachycardia, fastest at 129 bpm and longest lasting 5 beats. 4. There are 565 premature ventricular complexes. No ventricular tachycardia. 5. No sinoatrial or atrioventricular blocks. No significant pauses greater than 2 seconds. 6. No symptoms available for correlation.
== END 2023-11-05 13:39 | disposition home or self-care (01) ==
LOC: ANHCARD 13:41
PROVIDERS: PCP Nurse Practitioner Family; Visit Provider Nurse Practitioner Family
DX: R00.1 Bradycardia, unspecified (principal)
CPT/HCPCS: 93225; 93226

== ENCOUNTER 2023-11-20 13:00 | Outpatient (RCR) | payer MEDICARE, BC, SELFPAY ==
[2023-10-14 09:39] VITALS: BMI 30.9
[2023-10-14 09:40] VITALS: BMI 30.9
[2023-11-04 14:45] VITALS: BMI 30.9
[2023-11-12 10:45] VITALS: BMI 30.3
[2023-11-12 10:57] VITALS: BMI 30.3
== END 2023-12-15 09:45 | disposition home or self-care (01) ==
LOC: ANHDMC 13:00
PROVIDERS: PCP Family Medicine Adolescent Medicine; Visit Provider Family Medicine Adolescent Medicine
DX: E11.65 Type 2 diabetes mellitus with hyperglycemia (principal); Z71.89 Other specified counseling; Z71.3 Dietary counseling and surveillance
CPT/HCPCS: 97802; 97803; G0108

== ENCOUNTER 2024-01-20 12:55 | Outpatient (RCR) | payer MEDICARE, BC, SELFPAY | END 2024-04-12 10:19 | disposition home or self-care (01) | LOC: ANHDMC 12:55 | PROVIDERS: PCP Nurse Practitioner Family; Visit Provider Family Medicine Adolescent Medicine | DX: E11.65 Type 2 diabetes mellitus with hyperglycemia (principal); Z71.89 Other specified counseling | CPT/HCPCS: G0108 ==

== ENCOUNTER 2024-05-25 16:01 | Outpatient (CLI) | payer MEDICARE, BC, SELFPAY ==
--- NOTE | ~2024-05-25 | MM_ITS ---
EXAMINATION: MM screening davin BI w jin HISTORY: Screening mammogram TECHNIQUE: Craniocaudal and mediolateral oblique 3-D tomosynthesis images were obtained and synthetic 2-D images were generated. CAD analysis was submitted and interpreted. COMPARISON: 07/23/2022, 04/14/2021 BREAST PARENCHYMAL COMPOSITION:Dense: The breasts are extremely dense, which lowers the sensitivity o f mammography. FINDINGS: No suspicious mass, calcification, or architectural distortion are identified in either brenda ast to suggest malignancy. There has been no suspicious interval change. IMPRESSION: No mammographic evidence of malignancy. Recommend routine screening mammography in one year. BI-RADS Category 1: Negative Reviewed, dictated and finalized at location M. T CARE WORKER
== END 2024-05-25 16:02 | disposition home or self-care (01) ==
LOC: MICIMG 16:04
PROVIDERS: PCP Obstetrics & Gynecology Gynecology; Visit Provider Nurse Practitioner Family
DX: Z12.31 Encounter for screening mammogram for malignant neoplasm of breast (principal)
CPT/HCPCS: 77063; 77067

== ENCOUNTER 2024-08-10 12:38 | Outpatient (CLI) | payer MEDICARE, BC, SELFPAY ==
--- NOTE | 2024-08-10 12:47 | ECHO_ITS ---
Patient Info Name: Marian Alcazar Age: 78 years : 1945 Gender: Female Ht: 63 in Wt: 154 lbs BSA: 1.78 m2 HR: 94 bpm BP: 140 / 82 mmHg Technical Quality: Good Exam Date: 08/10/2024 12:52 PM Exam Location: Echo Lab Patient Status: Outpatient Admit Date: 08/10/2024 Staff Ordering Physician: Goldy Jerome DO Chronometer Tester: Monique Gomez RDCS Attending Provider: Goldy Jerome DO Referring Physician: Justus OTTO; Exam Type: CA echo doppler color flow Study Info Indications I35.8 - Other nonrheumatic aortic valve disorders Complete two-dimensional, color flow and Doppler transthoracic echocardiogram is performed. Summary 1. Complete two-dimensional, color flow and Doppler transthoracic echocardiogram is performed. 2. Left ventricular chamber dimension is normal. 3. Left ventricular systolic function is normal, estimated at 55-60%. 4. There is mild concentric increased left ventricular wall thickness. 5. The left ventricular diastolic function is grade III diastolic dysfunction. 6. E/e' 12 is mildly elevated. 7. Left atrial chamber dimension is severely enlarged. 8. Right atrial chamber dimension is moderately enlarged. 9. There is moderate aortic valve sclerosis. 10. There is mild aortic valve stenosis with a peak velocity of 192 cm/s, mean gradient of 6 mmHg, and aortic valve area of 1.7 cm2. 11. There is trace aortic valve regurgitation. 12. There is mild to moderate mitral valve regurgitation. 13. There is mild tricuspid valve regurgitation. 14. No pulmonary hypertension, estimated pulmonary arterial systolic pressure is 30 mmHg. Left Ventricle E/e' 12 is mildly elevated. Left ventricular chamber dimension is normal. Left ventricular systolic function is normal, estimated at 55-60%. There is mild concentric increased left ventricular wall thickness. The left ventricular diastolic function is grade III diastolic dysfunction. Right Ventricle Right ventricular systolic function is normal and with normal TAPSE 2.0 cm. Right ventricular chamber dimension is normal. Left Atria Left atrial chamber dimension is severely enlarged. Right Atria Right atrial chamber dimension is moderately enlarged. Aortic Valve The aortic valve is trileaflet. There is moderate aortic valve sclerosis. There is mild aortic valve stenosis with a peak velocity of 192 cm/s, mean gradient of 6 mmHg, and aortic valve area of 1.7 cm2. There is trace aortic valve regurgitation. Pulmonic Valve There is no pulmonic regurgitation. Mitral Valve There is no mitral valve stenosis. There is mild to moderate mitral valve regurgitation. Tricuspid Valve There is mild tricuspid valve regurgitation. No pulmonary hypertension, estimated pulmonary arterial systolic pressure is 30 mmHg. Pericardium/Pleural There is no pericardial effusion. Inferior Vena Cava Normal inferior vena cava with >50% collapse upon inspiration consistent with normal right atrial pressure, 5 mmHg. Aorta The aortic root size at the sinus of Valsalva is normal. Left Ventricular Outflow Tract Name Value Normal LVOT 2D LVOT Diameter 2.0 cm LVOT Doppler LVOT Peak Gradient 3 mmHg LVOT Mean Gradient 2 mmHg LVOT VTI 24 cm LVOT VTI/AV VTI Ratio 0.6 LVOT Stroke Volume 72 ml LVOT CO 4.9 l/min LVOT CI 2.7 l/min/m2 Pulmonic Valve Name Value Normal RVOT Doppler RVOT Peak Gradient 2 mmHg PV Doppler PV Peak Gradient 2 mmHg Mitral Valve Name Value Normal MV Doppler MV Decel [place] 968 cm/s2 MV PHT 34 ms MV Area (PHT) 6.5 cm2 4.0-5.0 MV Regurgitation Doppler MR Peak Gradient 130 mmHg MV Diastolic Function MV E Peak Velocity 114 cm/s MV A Peak Velocity 1 cm/s MV E/A 208.6 MV Decel Time 118 ms Tricuspid Valve Name Value Normal TV Regurgitation Doppler TR Peak Velocity 248 cm/s TR Peak Gradient 25 mmHg Estimated PAP/RSVP RA Pressure 5 mmHg <=5 PA Systolic Pressure 30 mmHg <36 RV Systolic Pressure 30 mmHg <36 Aorta Name Value Normal Ascending Aorta Ao Root Diameter (MM) 2.8 cm Ao Root Diam Index (MM) 1.6 cm/m2 Aortic Valve Name Value Normal AV Doppler AV Peak Velocity 192 cm/s AV Peak Gradient 9 mmHg AV Mean Gradient 6 mmHg AV VTI 42 cm AV Area (Cont Eq VTI) 1.7 cm2 >=3.0 AV Area (Cont Eq Gaudencio) 1.9 cm2 AV Regurgitation 2D LVOT Area 3.0 cm2 AV Regurgitation Doppler AR Decel Time 1,784 ms AR Decel [place] 229 cm/s2 AR PHT 517 ms Ventricles Name Value Normal LV Dimensions 2D/MM IVS Diastolic Thickness (2D) 1.3 cm 0.6-1.0 IVS Diastole Thickness (MM) 1.1 cm 0.6-0.9 LVID Diastole (2D) 4.3 cm 3.8-5.2 LVID Diastole (MM) 5.3 cm 3.8-5.2 LVIW Diastolic Thickness (2D) 0.9 cm 0.6-0.9 LVIW Diastolic Thickness (MM) 1.0 cm 0.6-0.9 LVID Systole (2D) 3.0 cm 2.2-3.5 LVID Systole (MM) 3.6 cm 2.2-3.5 LVOT Diameter 2.0 cm LV Mass (2D Cubed) 163.94 g 67.00-162.00 LV Mass Index (2D Cubed) 92 g/m2 43-95 Relative Wall Thickness (2D) 0.40 LV Mass (MM Cubed) 212.76 g 67.00-162.00 LV Mass Index (MM Cubed) 120 g/m2 43-95 Relative Wall Thickness (MM) 0.36 LV Fractional Shortening/Ejection Fraction 2D/MM LV Fractional Shortening (2D) 32 % 27-45 LV Fractional Shortening (MM) 32 % 27-45 LV EF (MM Teicholz) 60 % 54-74 LV EF (2D Teicholz) 60 % 54-74 LV Diastolic Volume (4C MOD) 95 ml LV EF (4C MOD) 49 % LV Diastolic Volume (2C MOD) 101 ml LV EF (2C MOD) 62 % LV Diastolic Volume (BP MOD) 99 ml 46-106 LV Diastolic Volume Index (BP MOD) 56 ml/m2 29-61 LV Systolic Volume (BP MOD) 45 ml 14-42 LV Systolic Volume Index (BP MOD) 25 ml/m2 8-24 LV EF (BP MOD) 54 % 54-74 LV Diastolic Length (4C) 7.3 cm LV Systolic Length (4C) 6.9 cm LV Stroke Volume (4C MOD) 46 ml Atria Name Value Normal LA Dimensions LA Dimension (MM) 5.6 cm 2.7-3.8 LA Volume (4C A-L) 169 ml LA Volume (BP A-L) 171 ml RA Dimensions RA Area (4C) 23.9 cm2 <=18.0 Report Signatures
--- OUTSIDE RECORDS SUMMARY | 2024-08-10 13:10 | XMS_ITS | Clinical Summary ---
Author Organization [facility] Address [address] [place] [address] Care Team Providers Care Layout Artist Name Role Phone Prashant Ramirez MD Primary Care Provider [phone] Allergies Active Allergy Reactions Criticality Noted Date Comments Latex Rash Low 12/10/2017 Morphine Other (See Comments) 12/10/2017 vomiting Medications losartan-hydroCH LOROthiazide (HYZAAR) 100-25 mg tablet Take 1 Tablet by mouth daily. Active ezetimibe (ZETIA) 10 mg tablet Take 10 mg by mouth daily. Active omeprazole (PriLOSEC) 20 mg Capsule, Delayed Release(E.C.) Take 20 mg by mouth daily. Active tamoxifen (NOLVADEX) 20 mg tablet Take 1 Tablet by mouth. 11/12/2017 Active ergocalciferol (VITAMIN D2) 50,000 unit capsule 11/12/2017 Active multivitamin/fol ic acid/biotin (AWHM-RPUL-DRBKJ , EU-JH-CGOHCG, ORAL) Take by mouth. Active melatonin 3 mg Tablet Take 3 mg by mouth. 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 Social History Tobacco Use Types Packs/Day Years Used Date Smoking Tobacco: Never Smokeless Tobacco: Never Alcohol Use Standard Drinks/Week Comments Yes 0 (1 standard drink = 0.6 oz pur e alcohol) occasional Comments No Sex and Gender Information Value Date Recorded Sex Assigned at Not on file Legal Sex Female 10:12 AM CDT Gender Identity Not on file Sexual Orientation Not on file Last Filed Vital Signs Vital Sign Reading Time Taken Comments Blood Pressure 129/74 02/10/2019 1:18 PM CDT Pulse 64 02/10/2019 1:18 PM CDT Temperature 36.8 ??C (98.3 ??F) 02/10/2019 1:18 PM CD T Respiratory Rate - - Oxygen Saturation 97% 02/10/2019 1:18 PM CDT Inhaled Oxygen Concentration - - Weight 92.4 kg (203 lb 11.2 oz) 02/10/2019 1:18 PM CDT Height 160 cm (5' 3 ) 02/10/2019 1:18 PM CDT Body Mass Index 36.08 02/10/2019 1:18 PM CDT Plan of Treatment Health Maintenance Due Date Last Done Comments DTAP/TDAP/TD VACCINES (1 - Tdap) 1964 PNEUMOCOCCAL VACCINE 65+ YEARS (1 of 1 - PCV) 11/15/18 96 ZOSTER VACCINE (1 of 2) 11/16/1995 OSTEOPOROSIS SCREENING 2010 RSV VACCINE (60+ or ) (1 - 1-dose 75+ series) 2020 INFLUENZA VACCINE (#1) 2024 05/13/[address] [place] [address] MEDICARE PART A AND B [facility] Care Teams Layout Artist Relationship Specialty Start Date End Date Prashant Ramirez MD [address] [address] PCP - General Family Practice 12/10/17
--- OUTSIDE RECORDS SUMMARY | 2024-08-10 13:10 | XMS_ITS | Referral Summary ---
Author Organization [facility] [employer] Address [address] [place] [address] [place] [address] Care Team Providers Care Veneer Sample Maker Name Role Phone Prashant Ramirez MD Primary Care Prov ider Jabari Marquez MD, Riley Unavailable [phone]- [phone] Allergies Active Allergy Reactions Criticality Noted Date Comments Latex Rash Medium 12/10/2017 Morphine Other (See comments) Low 12/10/2017 vomiting Medications losartan-hydr ochlorothiazi de (HYZAAR) 100-25 mg per tablet Take 1 tablet by mouth. 10/12 01/30 18 Active ezetimibe (ZETIA) 10 mg tablet 08/19/2017Zetia, po solid 10 mg TabletPOdailyCurrent Medication 08/19/19 18 Active VITAMIN D2 50,000 unit capsule 11/13/19 18 Active omeprazole (PriLOSEC) 20 mg capsule Take 20 mg by mouth. Active hydroCHLOROth iazide (HYDRODIURIL) 25 mg tablet 12/16/19 20 Active losartan (COZAAR) 100 mg tablet 12/16/19 20 Active Active Problems Problem Noted Date Diagnosed Date Malignant neoplasm of upper- outer quadrant of right breast in female, estrogen receptor positive 12/11/2017 Cancer Staging:Pathologic stage from 02/18/2017: pTis (DCIS), ER: Positive, AR: Positive, HER2: Not Assessed - Unsigned Clinical: Unsigned Immunizations Name Administration Dates Next Due Influenza, Quadrivalent, Snow l Culture-based MDCK, Preservative Free, Antibiotic Free, Intramuscular 04/19/2019 Influenza, Trivalent, High D ose, Split, Preservative Free, Intramuscular 05/13/2018 Influenza, Unspecified 04/09/2017,03/15/2014, Pneumococcal, Unspecified 04/13/2016 ZOSTER LIVE 08/19/2017, 7,04/09/2017,04/08 Social History Tobacco Use Types Packs/Day Years Used Date Smoking Tobacco: Never Smokeless Tobacco: Never Alcohol Use Standard Drinks/Week Comments Yes 0 (1 standard drink = 0.6 oz pur e alcohol) rare AUDIT-C Answer Date Recorded Q1: How often do you have a drink containing alc ohol? Never 06/18/2021 Average Number of Drinks Not on file 021 Frequency of Binge Drinking Not on file 12/2020 Personal Safety Answer Date Recorded Getting School Help Needed Not on file 09/26 Comments Unknown Sex and Gender Information Value Date Recorded Sex Assigned at Not on file Legal Sex Female 10:04 AM QUALITY ASSURANCE/R&D LAB TECHNICIAN Gender Identity Not on file Sexual Orientation Not on file Last Filed Vital Signs Vital Sign Reading Time Taken Comments Blood Pressure 141/75 02/21/2022 2:13 PM CDT Pulse 64 02/21/2022 2:13 PM CDT Temperature 36.4 ??C (97.6 ??F) 02/21/2022 2 :13 PM CDT Respiratory Rate 18 02/21/2022 2:13 PM CDT Oxygen Saturation 99% 02/21/2022 2:1 3 PM CDT Inhaled Oxygen Concentration - - Weight 85.5 kg (188 lb 6.4 oz) 02/22/20 22 2:13 PM CDT with shoes Height 160 cm (5' 3 ) 02/21/2022 2:13 PM CDT Body Mass Index 33.37 02/21/2022 2:13 PM CDT Plan of Treatment Not on file Insurance MEDICARE [employer] [place] [address] [place] [place] [address] MEDICARE [employer] Care Teams Veneer Sample Maker Relationship Specialty Start Date End Date Prashant Ramirez MD [address] [place] [address] PCP - General Family Medicine 12/23/17 Riley Barboza Jr., MD [address] [place] [address] Medical Oncologist/Go Go Dancer Medical Oncology 03/22/19
--- OUTSIDE RECORDS SUMMARY | 2024-08-10 13:10 | XMS_ITS | Clinical Summary ---
Author Organization [facility] [employer] [facility] Address [address] [place] [address] [place] [address] Care Team Providers Care Cocoa Powder Mixer Operator Name Role Phone Prashant Ramirez MD Primary Care Prov ider Jabari Marquez MD, Riley Unavailable [phone]- [phone] Allergies Active Allergy Reactions Criticality Noted Date [...] stage from 02/18/2017: pTis (DCIS), ER: Positive, CA: Positive, HER2: Not Assessed - Unsigned Clinical: Unsigned Immunizations Name Administration Dates Next Due Influenza, Quadrivalent, Snow l Culture-based MDCK, Preservative Free, Antibiotic Free, Intramuscular 04/19/2019 Influenza, Trivalent, High D ose, Split, Preservative Free, Intramuscular 05/13/2018 Influenza, Unspecified 04/09/2017,03/15/2014, Pneumococcal, Unspecified 04/13/2016 ZOSTER LIVE 08/19/2017, 7,04/09/2017,04/08 Surgical History Surgery Date Site/Laterality Comments COLONOSCOPY BREAST LUMPECTOMY BREAST BIOPSY Medical History Medical History Date Comments Breast cancer (HCC) Family History Medical History Relation Name Comments Colon cancer Father Relation Name Status Comments Father Social History Tobacco Use Types Packs/Day Years [...] on file Legal Sex Female 10:04 AM DIRECTOR MOTION PICTURE Gender Identity Not on file Sexual Orientation Not on file Obstetrics History Last Filed Vital Signs Vital Sign Reading [...] 02/21/2022 2:13 PM CDT Plan of Treatment Health Maintenance Due Date Last Done Comments Depression Screening 1945 Fall Risk Assessment 1945 Hepatitis C Screening 1945 Osteoporosis Screening-Bone Density Scan 1945 DTaP/Tdap/Td Vaccine (1 - Tdap) 1956 Hepatitis B Screening 11/16/1963 Well Visit 65+ 2010 Zoster Vaccine (2 of 3) 10/14/2017 08/19/19 18, 05/13/2017, 04/09/2017, Additional history exists Covid-19 Vaccine (2023-2 5 season) 2024 05/22/2021, 10/09/2020, 09/10/2020 Influenza Vaccine (#1) 2024 , 04/04/2020, 04/19/2019, Additional history exists Pneumococcal vaccine 65+ Completed 020, 04/13/2016, 04/26/2014 Insurance MEDICARE [facility] MEDICARE [employer] [facility] Care Teams Cocoa Powder Mixer Operator Relationship Specialty Start Date End Date Prashant Ramirez MD [address] [place] [address] PCP - General Family Medicine 12/23/17 Riley Barboza Jr., MD [address] [place] [address] Medical Oncologist/Computational Scientist Medical Oncology 03/22/19
--- OUTSIDE RECORDS SUMMARY | 2024-08-10 13:11 | XMS_ITS | Encounter Summary ---
Author Organization [facility] Address [address] [place] [address] Care Team Providers Care Artist Manager Name Role Phone Michael Mullins MD Unavailable [phone] Prashant Ramirez MD Primary Care Provider + Encounter Details Date Type Department Care Team (Late st Contact Info) Description 12/17/2023 Lab Requisition [facility] - DermPath Lab [address] [facility] [place] [address] Ismael Herrera MD [address] [place] [address] Social History Tobacco Use Types Packs/Day Years Used Date Smoking Tobacco: Never Smokeless Tobacco: Never Alcohol Use Standard Drinks/Week Comments No 0 (1 standard drink = 0.6 oz pur e alcohol) Sex and Gender Information Value Date Recorded Sex Assigned at Not on file Gender Identity Not on file Sexual Orientation Not on file documented as of this encounter Functional Status Functional Status Response Date of Assess ment Is person deaf or have serious hearing difficult y? No 02/16/2018 Is person blind or have serious difficulty seein g? No 02/16/2018 Does person have serious dif ficulty walking/climbing stairs? No 02/16/2018 Does person have difficulty dressing/bathing? No 02/16/2018 Does person have difficulty doing errands alone? No 02/16/2018 Cognitive Status Response Date of Assessm ent Does person have difficulty concentrating/remembering/making decisions? No 02/16/2018 documented as of this encounter Plan of Treatment Not on file documented as of this encounter Procedures Procedure Name Priority Date/Time Associated Diagnosis Comments DERMATOPATHOLOGY Routine 12/16/2023 3:33 AM CDT documented in this encounter Results * DERMATOPATHOLOGY (12/16/2023 3:33 AM CDT) Case Report Dermatopathology Report ? Case: [id number] ? Authorizing Provider: ??Ismael Herrera MD ?Collected: ? 12/16/2023 03:33 AM ? Ordering Location: ? [facility] - ??Received: ?12/17/2023 02:30 PM ? DermPath Lab ? Pathologist: ? Dionne Carmona MD ? Specimens: ?? A) - Skin, left nasal tip ? B) - Skin, right nasal tip ? C) - Skin, left distal extensor forearm ? 4 4:49 PM CDT DERMATOPATHOLOGY LABORATORY Amended Report Due to a clerical error, Site A is changed from left nasal tip to left nasal bulb 4 4:49 PM CDT DERMATOPATHOLOGY LABORATORY Final Diagnosis Specimen A. 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 SKIN, right nasal tip: BASAL CELL CARCINOMA, NODULAR TYPE (C44.311) Specimen C. 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 B: R/O BCC. C: R/O HAK SCC. 4 4:49 PM CDT DERMATOPATHOLOGY LABORATORY Gross Description Specimen A: Received is one formalin filled container labeled with the patient's name and designated left nasal bulb. The specimen consists of a curettage and desiccation biopsy measuring 7x6x2 mm. Jar 0. Specimen B: Received is one formalin filled container labeled with the patient's name and designated right nasal tip. The specimen consists of a shave biopsy measuring 6x6x2 mm. Jar 0. Specimen C: Received is one formalin filled container labeled with the patient's name and designated left distal extensor forearm. The specimen consists of a shave biopsy measuring 9x8x5 mm. Jar 0. 06/17/202 4 4:49 PM CDT DERMATOPATHOLOGY LABORATORY Microscopic Description Specimen A. SKIN, left nasal bulb: The epidermis shows parakeratosis, full thickness disorderly maturation of keratinocytes, mitoses at different levels, and dyskeratotic cells. Specimen B. SKIN, right nasal tip: Within the dermis there are aggregates of basaloid cells with a high nuclear to cytoplasmic ratio and peripheral palisading. Specimen C. SKIN, left distal extensor forearm: The epidermis shows parakeratosis, full thickness disorderly maturation of keratinocytes, mitoses at different levels, and dyskeratotic cells. 4 4:49 PM CDT DERMATOPATHOLOGY LABORATORY Disclaimer An external and internal positive and negative controls are appropriate for the histochemical, immunohistochemical and immunofluorescence stain(s) in this case (if any), except where stated explicitly. The performance characteristics of the stain(s) cited in this report were developed and its performance characteristic determined by the Dermatopathology Laboratory at [facility], directed by Dr. Sarahy Sauceda. These tests need not be, and therefore are not, approved by the [place] Food and Drug Administration. The tests are used for clinical purposes. Billing Codes Specimen Charges Stain Charges 64804 08374 60772 1 1 1 4 4:49 PM CDT DERMATOPATHOLOGY LABORATORY Embedded Images 4 4:49 PM CDT DERMATOPATHOLOGY LABORATORY Pathology/Cytology TISSUE SPECIMEN FROM SKIN / Unknown 12/16/2023 3:33 AM CDT 12/17/2023 2:30 PM CDT Miscellaneous samples (specimen) TISSUE SPECIMEN FROM SKIN / Unknown 12/16/2023 3:33 AM CDT 12/17/2023 2:30 PM CDT Miscellaneous samples (specimen) TISSUE SPECIMEN FROM SKIN / Unknown 12/16/2023 3:33 AM CDT 12/17/2023 2:30 PM CDT Ismael Herrera MD LAB - PATHOLOGY/CYTO LOGY ORDERABLES DERMATOPATHOLOGY LABORATORY [facility] - Department of Dermatology [address], [address] [phone] documented in this encounter Visit Diagnoses Not on filedocumented in this encounter Care Teams Artist Manager Relationship Specialty Start Date End Date Prashant Ramirez MD [address] [facility] [address] [place] [address] PCP - General Family Medicine 12/09/17 [place] [id number] [facility] [address] [place] [address] Orthopedic Surgery 12/09/17 documented as of this encounter
--- OUTSIDE RECORDS SUMMARY | 2024-08-10 13:11 | XMS_ITS | Clinical Summary ---
Author Organization [facility] [employer] Address [address] [place] [address] Care Team Providers Care Director Electrical Engineering Name Role Phone Michael Mullins MD Unavailable [phone] Prashant Ramirez MD Primary Care Provider + Source Comments [facility],non-owned Affiliates and Associated Physician Practices is amultiple site organization consisting of ambulatory clinics and hospital sitesin [place], [place], [place] and [place]. This disclosure is being madepursuant to the Care Everywhere program and may not contain all information available regarding this patient. Last updated 18.[facility] Allergies Active Allergy Reactions Criticality Noted Date Comments Latex Rash Medium 01/22/2018 Morphine Nausea and/or Vomiting Low 12/16/2011 Medications * Be aware that medications may not be up to date on this document. Alwaysverify current medications with the patient. Medication Sig Dispensed Refills Start Date End Date Status losartan-hydroCHLOR Othiazide (HYZAAR) 100-25 MG tablet Take 1 tablet by mouth once daily 10/28/2017 Active ezetimibe (ZETIA) 10 MG tablet Take 1 tablet by mouth once daily Active vitamin D, ergocalciferol, (DRISDOL) 76430 UNITS capsule Take 1 capsule by mouth every 7 days On Wednesdays11/12/2017 Active tamoxifen (NOLVADEX) 20 MG tablet Take 1 tablet by mouth once daily 11/12/2017 Active omeprazole (PRILOSEC) 20 MG capsule Take 20 mg by mouth daily before breakfast Active melatonin 3 MG tablet Take 3 mg by mouth nightly as needed for Insomnia Active Multiple Vitamins-Minerals (HAIR SKIN NAILS PO) Take by mouth 2 times daily Active traMADol (ULTRAM) 50 MG tablet Take 1 tablet by mouth every 6 hours as needed 02/17/2018 Active aspirin EC (ECOTRIN) 325 MG tablet 02/17/2018 Active celecoxib (CELEBREX) 200 MG capsuleIndications: Aftercare following right knee joint replacement surgery Take 1 capsule by mouth 2 times daily 60 capsule 03/09/2018 Active mometasone (ELOCON) 0.1 % cream 01/27/2018 Active fluocinonide (LIDEX) 0.05 % solution 07/24/2018 Active ketoconazole (NIZORAL) 2 % shampoo 07/24/2018 Active Active Problems Problem Noted Date Diagnosed Date Status post right knee replacement 02/16/2018 Malignant neoplasm of upper- outer quadrant of right breast in female, estrogen receptor positive 12/11/2017 Estrogen receptor positive 12/10/2017 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 Personal history of malignant neoplasm of breast 12/10/2017 Primary osteoarthritis of right knee 12/09/2017 GERD (gastroesophageal reflux disease) 2 HTN (hypertension) 12/23/2011 Hyperlipidemia 12/23/2011 Social History Tobacco Use Types Packs/Day Years [...] Sign Reading Time Taken Comments Blood Pressure 140/54 02/18/2018 7:20 AM CDT Pulse 66 02/18/2018 7:20 AM CDT Temperature 36.5 ??C (97.7 ??F) 02/18/2018 7:18 AM CD T Respiratory Rate 16 02/18/2018 7:20 AM CDT Oxygen Saturation 96% 02/18/2018 7:20 AM CDT Inhaled Oxygen Concentration - - Weight 89.4 kg (197 lb) 02/16/2018 6:58 AM CDT Height 160 cm (5' 3 ) 02/16/2018 6:58 AM CDT Body Mass Index 34.9 02/16/2018 6:58 AM CDT Plan of Treatment Health Maintenance Due Date Last Done Comments BONE DENSITY TESTING 1945 MEDICARE AWV ? 12 MONTHS 1945 HEPATITIS C SCREENING 11/11/1963 DTAP/TDAP/TD VACCINES (1 - Tdap) 1964 PNEUMOCOCCAL VACCINE 50+ (1 of 1 - PCV) 11/16/1995 ZOSTER VACCINE (1 of 2) 11/16/1995 Respiratory Syncytial Virus (RSV) Vaccine Pt: or over 60 yrs (1 - 1-dose 75+ series) 2020 COVID-19 VACCINE (1 - 2023- season) 2024 INFLUENZA VACCINE (#1) 2024 , 05/13/2018, 04/09/2017, Additional history exists DEPRESSION SCREENING 07/14/2024 HEPATITIS B VACCINE Aged Out No longe r eligible based on patient's age to complete this topic HIB VACCINE Aged Out No longer eligi ble based on patient's age to complete this topic HPV VACCINE Aged Out No longer eligi ble based on patient's age to complete this topic MENINGOCOCCAL (Group B) VACCINE Aged Out No longer eligible based on patient's age to complete this topic MENINGOCOCCAL VACCINE Aged Out No saud gilmar eligible based on patient's age to complete this topic Medical Devices Implanted Type Area Gum Remover Device Identifier Shelf Expiration Date Model / Serial / Lot Cmnt Bone Cblt 40gm Hvisc Strl Implanted:Qty: 1 on 02/16/2018 by Michael Mullins MD at [facility] Right: Knee [employer] 04/12/2019 600-15-000 / / [id number] Tray Tib 75mm Kn Cocr I Beam Implanted:Qty: 1 on 02/16/2018 by Michael Mullins MD at [facility] Right: Knee [employer] 10/19/2027 [id number] / / [id number] Cmpnt Fem Kn Rt Cr Cmnt Prm Vngrd Intlk 65mm Implanted:Qty: 1 on 02/16/2018 by Michael Mullins MD at [facility] Right: Knee [employer] 12/04/2027 [id number] / / [id number] Cmpnt Ptlr 28mm 1 Pg Wire Ascnt Arcm Kn Implanted:Qty: 1 on 02/16/2018 by Michael Mullins MD at [facility] Right: Knee [employer] 01/22/2023 [id number] / / [id number] Brng [id number] Vngrd Arcm Kn Ant Stab Implanted:Qty: 1 on 02/16/2018 by Michael Mullins MD at [facility] Right: Knee [employer] 12/26/2022 [id number] / / [id number] Advance Directives * Full Code (Latest Code Status on File) Date Activated Date Inactivated Comments 02/16/2018 12:02 PM 02/18/2018 4:15 PM Care Teams Director Electrical Engineering Relationship Specialty Start Date End Date Prashant Ramirez MD [address] [place] [address] PCP - General Family Medicine 12/09/17 [place] [address] [address] [address] Orthopedic Surgery 12/09/17
--- OUTSIDE RECORDS SUMMARY | 2024-08-10 13:11 | XMS_ITS | Referral Summary ---
Author Organization [facility] [employer] Address [address] [facility] [place] [address] Care Team Providers Care Concrete Block Mason Name Role Phone Michael Mullins MD Unavailable Prashant Ramirez MD Primary Care Provider + Source Comments [facility],non-owned Affiliates and Associated Physician Practices is amultiple site organization consisting of ambulatory clinics and hospital sitesin [place], [place], [place] and [place]. This disclosure is being madepursuant to the Care Everywhere program and may not contain all information available regarding this patient. Last updated 18.[facility] Allergies Active Allergy Reactions Criticality Noted Date [...] once daily Active vitamin D, ergocalciferol, (DRISDOL) 31343 UNITS capsule Take 1 capsule by mouth [...] Mass Index 34.9 02/16/2018 6:58 AM CDT Functional Status Functional Status Response Date of [...] person have difficulty concentrating/remembering/making decisions? No 02/16/2018 Plan of Treatment Not on file Medical Devices Implanted Type Area Lye Bath Operator Device Identifier Shelf Expiration Date Model / Serial / Lot Cmnt Bone Cblt 40gm Hvisc Strl Implanted:Qty: 1 on 02/16/2018 by Michael Mullins MD at [facility] Right: Knee [employer] 04/12/2019 600-15-000 / / [id number] Tray Tib 75mm Kn Cocr I Beam Implanted:Qty: 1 on 02/16/2018 by Michael Mullins MD at [facility] Right: Knee [employer] 10/19/2027 [id number] / / [id number] Cmpnt Fem Kn Rt Cr Cmnt Prm Vngrd Intlk 65mm Implanted:Qty: 1 on 02/16/2018 by Michael Mullins MD at [facility] Right: Knee [employer] 12/04/2027 [id number] / / [id number] Cmpnt Ptlr 28mm 1 Pg Wire Ascnt Arcm Kn Implanted:Qty: 1 on 02/16/2018 by Michael Mullins MD at [facility] Right: Knee [employer] 01/22/2023 [id number] / / [id number] Brng [id number] Vngrd Arcm Kn Ant Stab Implanted:Qty: 1 on 02/16/2018 by Michael Mullins MD at [facility] Right: Knee [employer] 12/26/2022 [id number] / / [id number] Advance Directives * Full Code (Latest Code Status on File) Date Activated Date Inactivated Comments 02/16/2018 12:02 PM 02/18/2018 4:15 PM Care Teams Concrete Block Mason Relationship Specialty Start Date End Date Prashant Ramirez MD [address] [facility] [address] [place] [address] PCP - General Family Medicine 12/09/17 [place] [address] [place] [address] Orthopedic Surgery 12/09/17
--- OUTSIDE RECORDS SUMMARY | 2024-08-10 13:11 | XMS_ITS | Encounter Summary ---
Author Organization [facility] Health Address [address] [place] [address] Care Team Providers Care Trade Promotion Analyst Name Role Phone Michael Mullins MD Unavailable [phone] Prashant Ramirez MD Primary Care Provider + Encounter Details Date Type Department Care Team (Late st Contact Info) Description 09/09/2019 Lab Requisition [facility] [address] [facility], [place] [id number] Ismael Herrera MD [address] [place] [address] Social History Tobacco Use Types Packs/Day Years [...] Priority Date/Time Associated Diagnosis Comments DERMATOPATHOLOGY Routine 09/08/2019 12:0 0 AM OUTSIDE FOOD SERVER documented in this encounter Results * DERMATOPATHOLOGY (09/08/2019 12:00 AM OUTSIDE FOOD SERVER) Case Report Dermatopathology Report ? Case: [id number] ? Authorizing Provider: ??Ismael Herrera MD ?Collected: ? 09/08/2019 12:00 AM ? Ordering Location: ? [facility] ?Received: ?09/09/2019 02:02 PM ? Pathologist: ? Jah Sauceda MD ? Specimens: ?? A) - Skin, vertex scalp ? B) - Skin, left paraspinal lower neck ? C) - Skin, right cheek ? 0 12:52 PM [facility] DERMATOPATHOLOGY [facility]ORATORY Final Diagnosis Specimen A. SKIN, vertex scalp: HYPERPLASTIC (HYPERTROPHIC) ACTINIC KERATOSIS (L57.0) HEALING SKIN CHANGES (L90.5) Specimen B. SKIN, left paraspinal lower neck: LICHEN PLANUS-LIKE KERATOSIS (BENIGN LICHENOID KERATOSIS) (L82.1) Specimen C. SKIN, right cheek: BASAL CELL CARCINOMA (C44.319) (see microscopic description and comment) 0 12:52 PM [facility] DERMATOPATHOLOGY [facility]AT[facility] Clinical History A: R/O SCC. B: R/O SCCIS, BCC, LPLK. 0 12:52 PM [facility]ERMATOPATHOLOGY [facility] Gross Description Specimen A: Received is one formalin filled container labeled with the patient's name and designated vertex scalp. The specimen consists of a shave biopsy measuring 1y7d5fb. Jar 0. Specimen B: Received is one formalin filled container labeled with the patient's name and designated left paraspinal lower neck. The specimen consists of a shave biopsy measuring 67x4x0vp. Jar 0. Specimen C: Received is one formalin filled container labeled with the patient's name and designated right cheek. The specimen consists of a shave biopsy measuring 8p8t5pi. Jar 0. 0 12:52 PM [facility]ERMATOPATH[facility] Microscopic Description Specimen A. SKIN, vertex scalp: There is hyperkeratosis alternating with parakeratosis. There is epidermal hyperplasia with disorderly maturation of keratinocytes with nuclear pleomorphism confined to the lower half of the epidermis. There is epidermal hyperplasia beneath which there are vascular proliferation, fibroblasts, and an edematous stroma. Specimen B. SKIN, left paraspinal lower neck: The epidermis is mildly acanthotic. There is a lichenoid infiltrate with vacuolar changes of basilar keratinocytes and scattered necrotic keratinocytes. Specimen C. SKIN, right cheek: The specimen consists of aggregates of basaloid cells, located within the superficial dermis, with high nuclear to cytoplasmic ratio and peripheral palisading. COMMENT: The small size of the specimen limits subtyping of the lesion. 0 12:52 PM OUTSIDE FOOD [facility]ER DERMATOPATHOLOGY LABORATORY Disclaimer An external and internal positive and negative controls are appropriate for the histochemical, immunohistochemical and immunofluorescence stain(s) in this case (if any), except where stated explicitly. The performance characteristics of the stain(s) cited in this report were developed and its performance characteristic determined by the Dermatopathology Laboratory at [facility], directed by Dr. Sarahy Sauceda. These tests need not be, and therefore are not, approved by the [place] Food and Drug Administration. The tests are used for clinical purposes. Billing Codes Specimen Charges Stain Charges 36763 93366 34997 1 1 1 0 12:52 PM OUTSIDE FOOD SERVER DERMATOPATHOLOGY LABORATORY Embedded Images 0 12:52 PM OUTSIDE FOOD SERVER DERMATOPATHOLOGY LABORATORY Pathology/Cytology TISSUE SPECIMEN FROM SKIN / Unknown 09/08/2019 09/09/2019 2:02 PM OUTSIDE FOOD SERVER Miscellaneous samples (specimen) TISSUE SPECIMEN FROM SKIN / Unknown 09/08/2019 09/09/2019 2:02 PM OUTSIDE FOOD SERVER Miscellaneous samples (specimen) TISSUE SPECIMEN FROM SKIN / Unknown 09/08/2019 09/09/2019 2:02 PM OUTSIDE FOOD SERVER Ismael Herrera MD LAB - PATHOLOGY/CYTO LOGY ORDERABLES DERMATOPATHOLOGY LABORATORY [facility] - Department of Dermatology [address] [place] [address] 5th Floor Lab [address] [phone] documented in this encounter Visit Diagnoses Not on filedocumented in this encounter Care Teams Trade Promotion Analyst Relationship Specialty Start Date End Date Prashant Ramirez MD [address] [facility] [address] [place] [address] PCP - General Family Medicine 12/09/17 [place] [address] [facility] [address] [place] [id number] Orthopedic Surgery 12/09/17 documented as of this encounter
--- OUTSIDE RECORDS SUMMARY | 2024-08-10 13:11 | XMS_ITS | Encounter Summary ---
Author Organization [facility] Health Address [address] [place] [address] Care Team Providers Care Solutions Developer Name Role Phone Michael Mullins MD Unavailable [phone] Prashant Ramirez MD Primary Care Provider + Encounter Details Date Type Department Care Team (Late st Contact Info) Description 02/23/2020 Lab Requisition [facility] [address] [facility], [place] [phone] Ismael Herrera MD [address] [place] [address] Social History Tobacco Use Types Packs/Day [...] Priority Date/Time Associated Diagnosis Comments DERMATOPATHOLOGY Routine 02/22/2020 12:0 0 AM CDT documented in this encounter Results * DERMATOPATHOLOGY (02/22/2020 12:00 AM CDT) Case Report Dermatopathology Report ? Case: [id number] ? Authorizing Provider: ??Ismael Herrera MD ?Collected: ? 02/22/2020 12:00 AM ? Ordering Location: ? [facility] ?Received: ?02/23/2020 03:15 PM ? Pathologist: ? Dionne Carmona MD ? Specimens: ?? A) - Skin, ant vertex ? B) - Skin, mid vertex ? C) - Skin, post vertex ? 0 3:57 PM [facility] DERMATOPATH[facility] LABORATORY Final Diagnosis Specimen A. SKIN, ant vertex: HYPERPLASTIC (HYPERTROPHIC) ACTINIC KERATOSIS; EXTENDING TO THE BASE OF THE SPECIMEN (L57.0) DERMAL FIBROSIS (L90.5) (see microscopic description and comment) Specimen B. SKIN, mid vertex: HYPERPLASTIC (HYPERTROPHIC) ACTINIC KERATOSIS; EXTENDING TO THE BASE OF THE SPECIMEN (L57.0) DERMAL FIBROSIS (L90.5) (see microscopic description and comment) Specimen C. SKIN, post vertex: BENIGN VERRUCOUS KERATOSIS, INFLAMED (L82.1) HEALING SKIN CHANGES AND DERMAL FIBROSIS (L90.5) (see microscopic description) 0 3:57 PM [facility] DERMATOPATH[facility] LABORATORY Clinical History A-C: R/O HAK, SCC. 0 3:57 PM [facility]MAT[facility] LABORATORY Gross Description Specimen A: Received is one formalin filled container labeled with the patient's name and designated ant vertex. The specimen consists of a shave biopsy measuring [id number]. Jar 0. Specimen B: Received is one formalin filled container labeled with the patient's name and designated mid vertex. The specimen consists of a shave biopsy measuring 1e8w0yn. Jar 0. Specimen C: Received is one formalin filled container labeled with the patient's name and designated post vertex. The specimen consists of a shave biopsy measuring 2r6w0dd, bisected. Jar 0. 0 3:57 PM [facility] DERMATOPATH[facility] LABORATORY Microscopic Description Specimen A. SKIN, ant vertex: There is hyperkeratosis alternating with parakeratosis. There is epidermal hyperplasia with disorderly maturation of keratinocytes with nuclear pleomorphism confined to the lower half of the epidermis. This process extends to the base of the specimen. Dermal fibrosis is present. COMMENT: A squamous cell carcinoma cannot be ruled out. Specimen B. SKIN, mid vertex: There is hyperkeratosis alternating with parakeratosis. There is epidermal hyperplasia with disorderly maturation of keratinocytes with nuclear pleomorphism confined to the lower half of the epidermis. This process extends to the base of the specimen. Dermal fibrosis is present. COMMENT: A squamous cell carcinoma cannot be ruled out. Specimen C. SKIN, post vertex: Sections show hyperkeratosis, papillomatosis, hypergranulosis, and acanthosis. Inflammatory cells are present within the dermis. These histological findings can be seen in a verruca vulgaris or a seborrheic keratosis. There is focal epidermal hyperplasia beneath which there are vascular proliferation, fibroblasts, and an edematous stroma. Dermal fibrosis is present. There is no evidence of epithelial dysplasia or malignancy in multiple deeper sections examined. 0 3:57 PM [facility] DERMATOPATHOLOGY LABORATORY Disclaimer An external and internal positive and negative controls are appropriate for the histochemical, immunohistochemical and immunofluorescence stain(s) in this case (if any), except where stated explicitly. The performance characteristics of the stain(s) cited in this report were developed and its performance characteristic determined by the Dermatopathology Laboratory at [facility], directed by Dr. Sarahy Sauceda. These tests need not be, and therefore are not, approved by the [place] Food and Drug Administration. The tests are used for clinical purposes. Billing Codes Specimen Charges Stain Charges 77312 [id number] 29606 1 1 1 0 3:57 PM CDT DERMATOPATHOLOGY LABORATORY Embedded Images 0 3:57 PM CDT DERMATOPATHOLOGY LABORATORY Pathology/Cytology TISSUE SPECIMEN FROM SKIN / Unknown 02/22/2020 02/23/2020 3:15 PM CDT Miscellaneous samples (specimen) TISSUE SPECIMEN FROM SKIN / Unknown 02/22/2020 02/23/2020 3:15 PM CDT Miscellaneous samples (specimen) TISSUE SPECIMEN FROM SKIN / Unknown 02/22/2020 02/23/2020 3:15 PM CDT Ismael Herrera MD LAB - PATHOLOGY/CYTO LOGY ORDERABLES DERMATOPATHOLOGY LABORATORY [facility] - Department of Dermatology Respiratory Therapist [place]/[address] [phone] documented in this encounter Visit Diagnoses Not on filedocumented in this encounter Care Teams Solutions Developer Relationship Specialty Start Date End Date Prashant Ramirez MD [address] [facility] [address] [place] [address] PCP - General Family Medicine 12/09/17 [place] [address] [facility] [address] [place] [address] Orthopedic Surgery 12/09/17 documented as of this encounter
--- OUTSIDE RECORDS SUMMARY | 2024-08-10 13:11 | XMS_ITS | Continuity of Care Document ---
Author Organization [facility] Address [address] [facility] [address] [place] [address] Phone Care Team Providers Care Refinery Operator Helper Name Role Phone Dorado OD, Travis Unavailable Unavailable Procedures Procedure Date Eye Exam & Treatment Refraction Progressive Lens, Polycarb Frames Deluxe Tax - Medical Advance Directives Directive Yes / No Effective Date File Name No Information Encounters Encounter Description Practice Location Reason(s) For Visit Diagnoses Date Provider Providers Copied on Encounter [facility], [address] [place] [address] [address], [place], [place], [id number], tel:[phone] [facility] No Information 2-200 9 Dorado OD Travis. [address] [facility] [facility] , [address], [place], [address], [place]. tel:[phone] [facility], [address] [place] [address] [address], [place], [place], [id number], [place] tel:[phone] [facility] No Information 7 7 [facility] . [address] [facility], [address], [place], [place], [id number], . tel:[phone] Referring Provider: Travis Dorado OD A, [address] [facility] [facility] [address], [place], [address]. tel:[phone] sulting Provider: Marleny Rodriguez, [address] [place], [address]. tel:[phone] Family History Family Member Type Diagnosis Age At Onset No Information Payers Payer name Insurance type Covered libertarian ID Authoriza tishavon(s) [employer] [place] [id number] Social History Type Description Quantity Date Captured [...]
--- OUTSIDE RECORDS SUMMARY | 2024-08-10 13:11 | XMS_ITS | Patient Health Summary ---
Author Organization [facility] Address [address] [place] [address] Care Team Providers Care Wine Maker Name Role Phone Michael Mullins MD Unavailable [phone] Prashant Ramirez MD Primary Care Provider + Note from [facility],non-owned Affiliates and Associated Physician Practices is amultiple site organization consisting of ambulatory clinics and hospital sitesin [place], [place], [place]. This disclosure is being madepursuant to the Care Everywhere program and may not contain all information available regarding this patient. Last updated 18.[facility] Allergies * Latex(Rash) -Medium Criticality * Morphine(Nausea and/or Vomiting) -Low Criticality Medications * Be aware that medications may not be up to date on this document. Alwaysverify current medications with the patient. * losartan-hydroCHLOROthiazide (HYZAAR) 100-25 MG tablet(Started 10/28/2017) Take 1 tablet by mouth once daily * ezetimibe (ZETIA) 10 MG tablet Take 1 tablet by mouth once daily * vitamin D, ergocalciferol, (DRISDOL) 19419 UNITS capsule(Started 11/12/2017) Take 1 capsule by mouth every 7 days On Wednesdays * tamoxifen (NOLVADEX) 20 MG tablet(Started 11/12/2017) Take 1 tablet by mouth once daily * omeprazole (PRILOSEC) 20 MG capsule Take 20 mg by mouth daily before breakfast * melatonin 3 MG tablet Take 3 mg by mouth nightly as needed for Insomnia * Multiple Vitamins-Minerals (HAIR SKIN NAILS PO) Take by mouth 2 times daily * traMADol (ULTRAM) 50 MG tablet(Started 02/17/2018) Take 1 tablet by mouth every 6 hours as needed * aspirin EC (ECOTRIN) 325 MG tablet(Started 02/17/2018) * celecoxib (CELEBREX) 200 MG capsule(Started 03/09/2018) Take 1 capsule by mouth 2 times daily * mometasone (ELOCON) 0.1 % cream(Started 01/27/2018) * fluocinonide (LIDEX) 0.05 % solution(Started 07/24/2018) * ketoconazole (NIZORAL) 2 % shampoo(Started 07/24/2018) Active Problems Problem Noted Date Diagnosed Date [...] Mass Index 34.9 02/16/2018 6:58 AM CDT Medical Devices Implanted Type Area Manager Party Device Identifier Shelf Expiration Date Model / Serial / Lot Cmnt Bone Cblt 40gm Hvisc Strl Implanted:Qty: 1 on 02/16/2018 by Michael Mullins MD at [facility] Right: Knee [employer] 04/12/2019 [id number] / / [id number] Tray Tib 75mm Kn Cocr I Beam Implanted:Qty: 1 on 02/16/2018 by Michael Mullins MD at [facility] Right: Knee [employer] 10/19/2027 [id number] / / [id number] Cmpnt Fem Kn Rt Cr Cmnt Prm Vngrd Intlk 65mm Implanted:Qty: 1 on 02/16/2018 by Michael Mullins MD at [facility] Right: Knee [employer] 12/04/2027 [id number] / / [id number] Cmpnt Ptlr 28mm 1 Pg Wire Ascnt Arcm Kn Implanted:Qty: 1 on 02/16/2018 by Michael Mullins MD at [facility] Right: Knee [employer] 01/22/2023 [id number] / / [id number] Brng [id number] Vngrd Arcm Kn Ant Stab Implanted:Qty: 1 on 02/16/2018 by Michael Mullins MD at [facility] Right: Knee [employer] 12/26/2022 [id number] / / [id number] Procedures * DERMATOPATHOLOGY(Performed 12/16/2023) * DERMATOPATHOLOGY(Performed 02/22/2020) * DERMATOPATHOLOGY(Performed 09/08/2019) * XR KNEE RIGHT 3VW(Performed 02/16/2019) Performed for Status post right knee replacement * XR KNEE LEFT 3VW(Performed 11/10/2018) Performed for Chronic pain of left knee * XR KNEE RIGHT 3VW(Performed 03/31/2018) Performed for Chronic pain of right knee * LAB RESULTS ORDER(Performed 02/20/2018) * HGB HCT PANEL(Performed 02/18/2018) * NEURAXIAL BLOCK(Performed 02/17/2018) * POTASSIUM BLOOD(Performed 02/17/2018) * HGB HCT PANEL(Performed 02/17/2018) * ARTHROPLASTY TOTAL KNEE(Performed 02/16/2018) * CULTURE MSSA/MRSA(Performed 01/22/2018) Performed for Preop examination * EKG 12-LEAD(Performed 01/22/2018) Performed for Preop examination * XR KNEE RIGHT 3VW(Performed 12/09/2017) Performed for Right knee pain, unspecified chronicity * MRI BREAST BILAT WWO CONTRAST(Performed 03/04/2017) * CREATININE BLOOD - POCT (IP) [facility](Performed 03/04/2017) * DERMATOPATHOLOGY(Performed 11/21/2015) * DERMATOPATHOLOGY(Performed 09/06/2015) * DERMATOPATHOLOGY(Performed 12/28/2014) * DERMATOPATHOLOGY(Performed 11/30/2014) * DERMATOPATHOLOGY(Performed 08/04/2014) * DERMATOPATHOLOGY(Performed 07/26/2014) * EKG 12-LEAD(Performed 01/28/2012) * EKG 12-LEAD(Performed 01/28/2012) * EKG 12-LEAD(Performed 01/21/2012) * EKG 12-LEAD(Performed 01/07/2012) * PATHOLOGY TISSUE(Performed 01/03/2012) * PATHOLOGY TISSUE(Performed 01/03/2012) * PATHOLOGY TISSUE(Performed 01/03/2012) * PATHOLOGY TISSUE(Performed 01/03/2012) * PATHOLOGY TISSUE(Performed 01/03/2012) * PATHOLOGY TISSUE(Performed 01/03/2012) * CK + CKMB PANEL(Performed 01/03/2012) * TROPONIN I(Performed 01/03/2012) * PT-INR [facility](Performed 01/03/2012) * PTT [facility](Performed 01/03/2012) * CBC W AUTO DIFFERENTIAL(Performed 01/03/2012) * COMPREHENSIVE METABOLIC PANEL(Performed 01/03/2012) * BASIC METABOLIC PANEL (CALCIUM TOTAL)(Performed 12/28/2011) * CBC W AUTO DIFFERENTIAL(Performed 12/28/2011) * LIPID PROFILE(Performed 12/28/2011) * CK + CKMB PANEL(Performed 12/28/2011) * TROPONIN I(Performed 12/28/2011) * CK + CKMB PANEL(Performed 12/27/2011) * TROPONIN I(Performed 12/27/2011) * XR CHEST 1VW PORTABLE(Performed 12/27/2011) * TROPONIN I(Performed 12/27/2011) * CK + CKMB PANEL(Performed 12/27/2011) * NM LYMPHOSCINTIGRAPHY(Performed 12/26/2011) * LAB HISTORICAL RESULTS-ONBASE(Performed 12/16/2011) * LAB HISTORICAL RESULTS-ONBASE(Performed 12/16/2011) * XR CHEST 2VW(Performed 12/16/2011) * COMPREHENSIVE METABOLIC PANEL(Performed 12/16/2011) * CBC W/O DIFFERENTIAL(Performed 12/16/2011) * DERMATOPATHOLOGY(Performed 11/26/2011) * DERMATOPATHOLOGY(Performed 01/23/2011) Results * DERMATOPATHOLOGY (12/16/2023 3:33 AM CDT) Only the most recent of11 resultswithin the time period is included. Case Report Dermatopathology Report ? Case: [id number] ? Authorizing Provider: ??Ismael Herrera MD ?Collected: [...] shave biopsy measuring 9x8x5 mm. Jar 0. 4 4:49 PM CDT DERMATOPATHOLOGY LABORATORY Microscopic [...] characteristic determined by the Dermatopathology Laboratory at [facility], directed by Dr. Sarahy Sauceda. These tests need not be, and therefore are not, approved by the [place] Food and Drug Administration. The tests are used for clinical purposes. Billing Codes Specimen Charges Stain Charges 13652 94423 20190 1 1 1 4 4:49 PM CDT [...] LAB - PATHOLOGY/CYTO LOGY ORDERABLES DERMATOPATHOLOGY LABORATORY [facility] - Department of Dermatology [address], [address] [phone] * XR KNEE RIGHT 3VW (02/16/2019 11:55 AM CDT) Only the most recent of3 resultswithin the time period is included. Anatomical Region Laterality Modality Lower Extremity Computed Radiogr aphy Narrative 02/16/2019 12:00 PM CDT Kate Carlos, RT(R) ? 03/01/2019 ??2:55 PM See progress notes for results Michael Mullins MD DIAGNOSTIC IMAGING O RDERABLES * XR KNEE LEFT 3VW (11/10/2018 2:00 PM CDT) Anatomical Region Laterality Modality Lower Extremity Computed Radiogr aphy Narrative 11/20/2018 5:04 PM CDT Mei Rosenberg ? 11/20/2018 ??5:04 PM Please see progress notes for xray results Michael Mullins MD DIAGNOSTIC IMAGING O RDERABLES * LAB RESULTS ORDER (02/20/2018 12:54 AM CDT) Narrative 02/20/2018 12:54 AM CDT Ordered by an unspecified provider. Scanned Document LAB - THERAPEUTIC DR HOLMAN MONITORING ORDERABLES * (ABNORMAL) HGB HCT PANEL (02/18/2018 12:57 AM CDT) Only the most recent of2 resultswithin the time period is included. Hemoglobin 10.0(L) 12.0 - 15.6 gm/dL 02/18/2018 1:41 AM CDT [facility] Hematocrit 29.7(L) 35.9 - 45.5 % 02/18/2018 1:41 AM CDT [facility] Blood BLOOD SPECIMEN / Unknown Venipuncture / Unknown 02/18/2018 12:57 AM CDT 02/18/2018 1:38 AM CDT Michael Mullins MD LAB - HEMATOLOGY ORD ERABLES [facility] [address] [place] [address] * NEURAXIAL BLOCK (02/17/2018 6:45 AM CDT) Narrative Cori Carnes DO - 02/17/2018 6:45 AM CDT Yoli Cheung, FOREST MANAGEMENT PROFESSOR-GARBAGE TRUCK HELPER ? 02/16/2018 ??8:44 AM Neuraxial Block Note ?? Procedure Name: ??Neuraxial Block Patient Location: ??OR Pre-Procedure: ?? Indications: ??surgical anesthesia Pre-Anesthetic Checklist: ??Patient identified, IV Checked, Risks and benefits discussed, Surgical consent verified, Monitors and equipment, Site examined, Pre-op evaluation done, Time-out performed, Informed consent obtained, Questions answered/anesthesia questions answered and Allergies reviewed Anticoagulation/ Anti-thrombosis status confirmed? ??Yes Monitors: ??BP and continuous pluse ox Patient Position: ??sitting Patient Sedated? ??Yes ? Sedation Agents: versed, ?? fentanyl Procedure: ?? Block Type: ??Spinal Prep: ??Betadine Sterile Field: ??mask, cap/hat, sterile established and sterile gloves Approach: ??midline Skin localized with: ??lidocaine 1%, ??3 mL Spinal Block: ?? Needle Gauge: ??22 Needle Length: ??90 mm Placement Site: ??L2-3 Number of Attempts: ??1 CSF: ??free flow, ?? aspiration before injection, ?? aspiration during injection Spinal Local Anesthetic: ? Bupivacaine: ??2.8 ?? mL ??of ??0.5% PF Degree of difficulty: ??none Sensory Level: ??T6 Motor Blockade: ??Yes Position post procedure: ??supine Vital Signs: ??Vital sings monitored and stable throughout. ??See anesthesia record for details. Staff: ?? Anesthesia Provider: ??YOLI CHEUNG ?? - ?? performed the procedure Cori Carnes DO GENERAL ANESTHESIA O RDERABLES * POTASSIUM BLOOD (02/17/2018 5:12 AM CDT) Potassium 3.9 3.5 - 5.1 mmol/L 02/17/2018 5:32 AM CDT [facility] Blood BLOOD SPECIMEN / Unknown Venipuncture / Unknown 02/17/2018 5:12 AM CDT 02/17/2018 5:22 AM CDT Kasey Deluna MD LAB - CHEMISTRY ORD ERABLES Performing Organization Address City/[facility]/ZIP Co de Phone Number [facility] [address] [place] [address] * CULTURE MSSA/MRSA (01/22/2018 2:23 PM CDT) Culture Negative for Staphylococcus aureus (MRSA/MSSA) JOANNE 01/24/2018 6:32 AM CDT [facility] Microbiology SPECIMEN FROM NASAL FOSSAE / Unknown Collection / Unknown 01/22/2018 2:23 PM CDT 01/22/2018 3:42 PM CDT Michael Mullins MD LAB - MICROBIOLOGY O RDERABLES Performing Organization Address City/[facility]/ZIP Co de Phone Number [facility] [address] [place] [id number], [facility] [phone] * EKG 12-LEAD (01/22/2018 1:50 PM CDT) Only the most recent of5 resultswithin the time period is included. Ventricular Rate 62 BPM [facility] Atrial Rate 62 BPM [facility] P-R Interval 146 ms [facility] QRS Duration ms 94 ms [facility] Q-T Interval ms 454 ms [facility] QTC Calculation (Bezet) 460 ms [facility] Calculated P [place] 20 degrees [facility] Calculated R [place] -24 degrees [facility] Calculated T [place] 7 degrees [facility] Interpretation EKG Sinus rhythm with frequent Premature ventricular complexes Moderate voltage criteria for LVH, may be normal variant Nonspecific ST abnormality Abnormal ECG No previous ECGs available Confirmed by KWAKU SHRESTHA MD ([id number]) on 01/23/2018 12:12:27 PM [facility] 01/22/2018 1:50 PM CDT 01/23/2018 12:12 PM CDT Michael Mullins MD ECG ORDERABLES [facility] * MRI BREAST BILAT WWO CONTRAST (03/04/2017 5:58 PM CDT) Anatomical Region Laterality Modality Breast Bilateral Other Impressions 03/05/2017 10:14 AM CDT IMPRESSION: Right breast: Small area of nonmass enhancement in the upper outer right breast, likely postbiopsy change without suspicious findings to suggest residual disease. Left breast: No evidence of malignancy in the left breast. ASSESSMENT: BI-RADS category 6: Known biopsy-proven cancer. RECOMMENDATION: Right breast surgical/medical management. I, Dr. MORALES WHYTE M.D. have personally reviewed and interpreted this examination/study. This report was electronically signed by MORALES WHYTE M.D. ??on 03/05/2017 10:14 AM . Narrative 03/05/2017 10:14 AM CDT BILATERAL BREAST MRI HISTORY: ??71-year-old female with new diagnosis of right upper breast DCIS/ADH. History of left breast cancer status post breast conservation therapy. COMPARISON: Comparison was made to previous previous mammogram dated 01/22/2017 and 12/26/2015 TECHNIQUE: Multiplanar multisequence MR imaging of both breasts before and following the administration of 9 cc of Gadavist. Dynamic phase imaging was performed in the axial plane. Exam was processed by and interpreted on a [employer] cafeteria server including 3-D volume rendering, subtraction image processing and contrast kinetic analysis. FINDINGS: Background tissue pattern: The breasts are almost entirely fatty.. Degree of background parenchymal enhancement: mild. RIGHT BREAST: There is faint area of nonmass enhancement in the upper outer right breast (series 12, image 66) adjacent to the biopsy marker, 13 cm deep to the nipple. Right axillary lymph nodes do not appear enlarged. There is no abnormality of the chest wall, or nipple areolar complex. LEFT BREAST: There is no suspicious mass or area of abnormal enhancement in the left breast. There is no abnormality of the left axilla, chest wall, or nipple areolar complex. Surgical changes are seen within the left breast as well as skin thickening consistent with the stated history of prior breast conservation therapy. Surgical changes are also seen within the left axilla without enlarged lymph node. EXTRAMAMMARY FINDINGS: No suspicious finding. Procedure Note Osiris Whyte MD - 10/10/2017 BILATERAL BREAST MRI HISTORY: 71-year-old female with new diagnosis of right upper breastDCIS/ADH. History of left breast cancer status post breast conservationtherapy. COMPARISON: Comparison was made to previous previous mammogram date01/22/2017 and 12/26/2015 TECHNIQUE: Multiplanar multisequence MR imaging of both breasts before andfollowing the administration of 9 cc of Gadavist. Dynamic phase imagingwas performed in the axial plane. Exam was processed by and interpreted kavon [employer] cafeteria server including 3-D volume rendering, subtraction image processing and contrast kineticanalysis. FINDINGS: Background tissue pattern: The breasts are almost entirely fatty.. Degree of background parenchymal enhancement: mild. RIGHT BREAST: There is faint area of nonmass enhancement in the upper outer right breast(series 12, image 66) adjacent to the biopsy marker, 13 cm deep to thenipple. Right axillary lymph nodes do not appear enlarged. There is noabnormality of the chest wall, or nipple areolar complex. LEFT BREAST: There is no suspicious mass or area of abnormal enhancement in the leftbreast. There is no abnormality of the left axilla, chest wall, or nippleareolar complex. Surgical changes are seen within the left breast as wellas skin thickening consistent with the stated history of prior breast conservation therapy. Surgical changesare also seen within the left axilla without enlarged lymph node. EXTRAMAMMARY FINDINGS: No suspicious finding. IMPRESSION IMPRESSION: Right breast: Small area of nonmass enhancement in the upper outer rightbreast, likely postbiopsy change without suspicious findings to suggestresidual disease. Left breast: No evidence of malignancy in the left breast. ASSESSMENT: BI-RADS category 6: Known biopsy-proven cancer. RECOMMENDATION: Right breast surgical/medical management. I, Dr. MORALES WHYTE M.D. have personally reviewed and interpreted thisexamination/study. This report was electronically signed by MORALES WHYTE M.D. on03/05/2017 10:14 AM . Historical Provider MD MR ORDERABLES * CREATININE BLOOD - POCT (IP) [facility] (03/04/2017) Creatinine POCT 0.7 0.3 - 1.3 mg/dL [facility] eGFR POCT 60 60 ml/min [facility] 03/04/2017 Osiris Whyte MD LAB - POINT OF MT RE ORDERABLES Performing Organization Address [facility] de Phone Number [facility] * PTT [facility] (01/03/2012 1:11 PM CDT) Plasma specimen (specimen) 01/03/2012 1:11 PM CDT Narrative [facility] - 01/03/2012 1:11 PM CDT Is patient on Heparin, Argatroban or Dabigatran?->N Isak Kline MD LAB - COAGULATION OR DERABLES Performing Organization Address [facility] de Phone Number [address] * PT-INR [facility] (01/03/2012 1:11 PM CDT) Plasma specimen (specimen) 01/03/2012 1:11 PM CDT [facility] - 01/03/2012 1:11 PM CDT Is patient on Heparin, Argatroban or Dabigatran?->N Isak Kline MD LAB - COAGULATION OR DERABLES Performing Organization Address [facility] de Phone Number [address] * PATHOLOGY TISSUE (01/03/2012 1:11 PM CDT) Only the most recent of6 resultswithin the time period is included. 01/03/2012 1:11 PM CDT [facility] - 01/03/2012 1:11 PM CDT PATIENT HISTORY: Past Medical History: ??Hypertension ?GERD (gastroesophageal reflux disease) ?Arthritis ? 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 DISSECTION SENTINEL NODE; EXCISION WIDE LOCAL - Right anterior Forearm POST-OP DIAGNOSIS: * No post-op diagnosis entered * Collection Date->12/27/11 Collection Time-> 9:42 AM Specimen A->Other ? SENTINEL NODE RT .AXILLA STITCH AT 1200 Isak Kline MD LAB - PATHOLOGY/CYTO LOGY ORDERABLES Performing Organization Address [facility] Phone Number [address] * TROPONIN I (01/03/2012 1:11 PM CDT) Only the most recent of4 resultswithin the time period is included. 01/03/2012 1:11 PM CDT Isak Kline MD LAB - CHEMISTRY CLAY REYES Performing Organization Address [facility] Phone Number [address] * CBC W AUTO DIFFERENTIAL (01/03/2012 1:11 PM CDT) Only the most recent of2 resultswithin the time period is included. Venous blood specimen (specimen) 01/03/2012 1:11 PM CDT Isak Kline MD LAB - HEMATOLOGY ORD ERABLES Performing Organization Address [facility] de Phone Number [address] * COMPREHENSIVE METABOLIC PANEL (01/03/2012 1:11 PM CDT) Only the most recent of2 resultswithin the time period is included. Serum 01/03/2012 1:11 PM CDT Isak Kline MD LAB - CHEMISTRY CLAY REYES Performing Organization Address [facility] de Phone Number [address] * CK + CKMB PANEL (01/03/2012 1:11 PM CDT) Only the most recent of4 resultswithin the time period is included. 01/03/2012 1:11 PM CDT Isak Kline MD LAB - CHEMISTRY CLAY REYES Performing Organization Address [facility] de Phone Number [address] * (ABNORMAL) BASIC METABOLIC PANEL (CALCIUM TOTAL) (12/28/2011 1:00 AM CDT) BUN 13 7 - 26 mg/dL [facility] Creatinine 0.7 0.6 - 1.2 mg/dL [facility] eGFR by MDRD > 60 ML/MIN [facility] Comment: Chronic kidney disease: ??<60 ml/min Kidney failure: ?<15 ml/min Based on BSA of 1.73m2. Sodium 140 136 - 145 mmol/L [facility] Potassium 3.0(L) 3.5 - 4.5 mmol/L [facility] Chloride 106 98 - 107 mmol/L [facility] CO2 23 22 - 29 mmol/L [facility] Glucose 131(H) 70 - 115 mg/dL [facility] Calcium 7.7(L) 8.4 - 10.2 mg/dL [facility] Anion Gap 14 8 - 18 [facility] BUN/Creatinine Ratio 18 7 - 23 [facility] Osmolality Calculation 276 270 - 300 mOsm/kg [facility] Venous blood specimen (specimen) 12/28/2011 1:00 AM CDT 12/28/2011 2:14 AM CDT Isak Kline MD LAB - CHEMISTRY CLAY REYES Performing Organization Address [facility] Co de Phone Number [address] [phone] * (ABNORMAL) LIPID PROFILE (12/28/2011 1:00 AM CDT) Cholesterol Total 181 <200 mg/dL [facility] HDL 39(L) > OR = 40 mg/dL [facility] Comment: ATP III classification of HDL cholesterol: <40 mg/dL Low; considered a major risk factor >60 mg/dL High; considered a negative risk factor Triglycerides 101 <150 mg/dL [facility] Comment: ATP III classification of Triglycerides: < 150 mg/dL ??Normal triglycerides 150-199 mg/dL Borderline-high triglycerides 200-400 mg/dL High triglycerides > 500 mg/dL ??Very high triglycerides LDL Calculated 122(H) 0 - 100 mg/dL [facility] Comment: ATP III classification of LDL cholesterol: <100 mg/dL ??Optimal 100-129 Near optimal/above optimal 130-159 Borderline high 160-189 High >190 ?? Very high Venous blood specimen (specimen) 12/28/2011 1:00 AM CDT 12/28/2011 2:14 AM CDT Isak Kline MD LAB - CHEMISTRY CLAY REYES Performing Organization Address [facility] Co de Phone Number [address] [phone] * XR CHEST 1VW PORTABLE (12/27/2011 2:59 PM CDT) Anatomical Region Laterality Modality Chest Other Impressions 12/27/2011 6:01 PM CDT Impression: Bibasilar atelectasis This exam has been personally reviewed and interpreted by Dee Govea MD (attending radiologist). Report dictated by Blake Kebede MD (resident). Narrative 12/27/2011 6:01 PM CDT Exam: Portable ??Chest X-ray, 1 ??views Date: ??Dec 27, 2011 2:59:34 PM History: ??chest pain Comparison: 12/16/2011 Findings: Surgical clips are seen in the right upper quadrant and the left axilla. Bibasilar atelectasis is present. Otherwise no focal consolidation, pleural effusion, or pneumothorax is identified. The cardiomediastinal silhouette is normal. ??The osseous structures are intact. Procedure Note Dee Govea MD - 10/12/2017 Exam: Portable Chest X-ray, 1 views Date: Dec 27, 2011 2:59:34 PM History: chest pain Comparison: 12/16/2011 Findings: Surgical clips are seen in the right upper quadrant and the left axilla. Bibasilar atelectasis is present. Otherwise no focal consolidation,pleural effusion, or pneumothorax is identified. The cardiomediastinalsilhouette is normal. The osseous structures are intact. IMPRESSION Impression: Bibasilar atelectasis This exam has been personally reviewed and interpreted by MD Cas (attending radiologist). Report dictated by Blake Kebede MD(resident). Isak Kline MD DIAGNOSTIC IMAGING O RDERABLES * NM LYMPHOSCINTIGRAPHY (12/26/2011 4:01 PM CDT) Anatomical Region Laterality Modality Other Impressions 12/26/2011 4:34 PM CDT Impression: [place] lymph node identification and marking in the right axilla. This examination has been personally reviewed and interpreted by Lloyd Ruvalcaba M.D. (attending). Report dictated by Shivam Mcconnell M.D. (resident). Narrative 12/26/2011 4:34 PM CDT Procedure: Lymphoscintigraphy - [place] lymph node detection Agent: 1.37 mCi of Tc-99m sulfur colloid injected intradermally in the right forearm History: Kyra cell carcinoma Findings: A total dose of 1.37 mCi Tc 99-m sulfur colloid was given by 4 separate intradermal injections around the original lesion by Dr. Mcconnell. Planar dynamic images of the chest initially shows a faint trail of activity leading towards the right axilla. Subsequently, a sentinel node is localized in the region of the right axilla. No evidence of sentinel lymph node contralaterally. The sentinel lymph node was marked on the skin based on an anterior projection. SPECT CT was performed to confirm location of the sentinel lymph node. Procedure Note Lloyd Ruvalcaba MD - 10/12/2017 Procedure: Lymphoscintigraphy - [place] lymph node detection Agent: 1.37 mCi of Tc-99m sulfur colloid injected intradermally in theright forearm History: [place] cell carcinoma Findings: A total dose of 1.37 mCi Tc 99-m sulfur colloid was given by 4 separateintradermal injections around the original lesion by Dr. Mcconnell. Planardynamic images of the chest initially shows a faint trail of activityleading towards the right axilla. Subsequently, a sentinel node is localized in the region of the rightaxilla. No evidence of sentinel lymph node contralaterally. The sentinellymph node was marked on the skin based on an anterior projection. SPECTCT was performed to confirm location of the sentinel lymph node. IMPRESSION Impression: [place] lymph node identification and marking in the right axilla. This examination has been personally reviewed and interpreted by Devorah Abrams (attending). Report dictated by Shivam Mcconnell M.D.(resident). Isak Kline MD NM ORDERABLES * LAB HISTORICAL RESULTS-ONBASE (12/16/2011 5:37 PM CDT) Only the most recent of2 resultswithin the time period is included. 12/16/2011 5:37 PM CDT Narrative [facility] - 12/16/2011 5:37 PM CDT A scan was deleted from the Results section by Eli Lugo [NOEMI] on 12/16/2011 at ??5:37 PM (File: [id number]) Historical Provider LAB - CHEMISTRY O RDERABLES [facility] [address] [place] [address], [facility] * XR CHEST 2VW (12/16/2011 4:04 PM CDT) Anatomical Region Laterality Modality Chest Other Impressions 12/17/2011 5:29 PM CDT Impression: No pulmonary infiltrates. Report dictated by Samson Cantor M.D. (vice president education). Narrative 12/17/2011 5:29 PM CDT Exam: Chest, PA and lateral Comparison: None History: Kunia cell carcinoma Findings: Surgical clips are seen along the left axilla and in the right upper quadrant. No focal consolidation, ??pleural effusion, or ??pneumothorax ??is present. ??The heart size is upper limit of normal. The visible bony thorax is intact. ?? Procedure Note Odilia Frausto MD - 10/12/2017 Exam: Chest, PA and lateral Comparison: None History: Kyra cell carcinoma Findings: Surgical clips are seen along the left axilla and in the rightupper quadrant. No focal consolidation, pleural effusion, or pneumothorax is present.The heart size is upper limit of normal. The visible bony thorax isintact. IMPRESSION Impression: No pulmonary infiltrates. Report dictated by Samson Cantor M.D. (vice president education). Isak Kline MD DIAGNOSTIC IMAGING O RDERABLES * CBC W/O DIFFERENTIAL (12/16/2011 3:49 PM CDT) WBC 7.2 3.5 - 10.5 10^3/uL [facility] RBC 4.59 3.90 - 5.00 10^6/uL [facility] Hemoglobin 14.0 12.0 - 15.5 g/dL [facility] Hematocrit 41.6 35.0 - 45.0 % [facility] MCV 90.6 81.0 - 97.0 FL [facility] MCH 30.5 28.0 - 34.0 PG [facility] MCHC 33.7 32.0 - 36.0 G/DL [facility] Platelet 233 150 - 400 10^3/uL [facility] RDW 13.2 11.2 - 14.8 % [facility] RDW-SD 43.3 36 - 50 FL [facility] MPV 11.0 9.3 - 12.8 FL [facility] 12/16/2011 3:49 PM CDT 12/16/2011 3:58 PM CDT Isak Kline MD LAB - HEMATOLOGY ORD ERABLES [facility] [address] [phone] Care Teams Wine Maker Relationship Specialty Start Date End Date Prashant Ramirez MD [address] [facility] [address] [place] [address] PCP - General Family Medicine 12/09/17 [place] [id number] [address] Orthopedic Surgery 12/09/17
== END 2024-08-10 12:39 | disposition home or self-care (01) ==
LOC: ANHLAB 12:39
PROVIDERS: PCP Family Medicine Adolescent Medicine; Visit Provider Internal Medicine Cardiovascular Disease
DX: I08.3 Combined rheumatic disorders of mitral, aortic and tricuspid valves (principal); I35.8 Other nonrheumatic aortic valve disorders
CPT/HCPCS: 93306

== ENCOUNTER 2025-02-07 12:05 | Outpatient (CLI) | payer MEDICARE, BC, SELFPAY ==
--- OUTSIDE RECORDS SUMMARY | 2025-02-07 12:08 | XMS_ITS | Clinical Summary ---
Author Organization [facility] Address [address] [place] [address] Care Team Providers Care Newspaper Copy Editor Name Role Phone Prashant Ramirez MD Primary Care Provider [phone] Allergies Active Allergy Reactions Criticality Noted Date [...] unit capsule 11/12/2017 Active multivitamin/fol ic acid/biotin ([id number] , JH-KT-[id number], ORAL) Take by mouth. Active melatonin 3 [...] 64 02/10/2019 1:18 PM CDT Temperature 36.8 C (98.3 F) 02/10/2019 1:18 PM CDT Respiratory Rate - - Oxygen Saturation 97% 02/10/2019 1:18 PM CDT Inhaled Oxygen Concentration - - Weight 92.4 kg (203 lb 11.2 oz) 02/10/2019 1:18 PM CDT Height 160 cm (5' 3) 02/10/2019 1:18 PM CDT Body Mass Index 36.08 02/10/2019 1:18 PM CDT Plan of Treatment Health Maintenance Due Date Last Done Comments DTAP/TDAP/TD VACCINES (1 - Tdap) 1964 PNEUMOCOCCAL VACCINE 50+ YEARS (1 of 1 - PCV) 11/15/18 96 ZOSTER VACCINE (1 of 2) 11/16/1995 OSTEOPOROSIS SCREENING 2010 RSV VACCINE (60+ or ) (1 - 1-dose 75+ series) 2020 INFLUENZA VACCINE (#1) 2025 05/13/[address] [place] [address] MEDICARE PART A AND B [facility] Care Teams Newspaper Copy Editor Relationship Specialty Start Date End Date Prashant Ramirez MD PCP - General Family Practice 12/10/17
--- OUTSIDE RECORDS SUMMARY | 2025-02-07 12:08 | XMS_ITS | Referral Summary ---
Author Organization [facility] Daph[facility] Nolen Ext[facility] ns[employer] Address [address] [place] [address] [place] [address] Care Team Providers Care Residential Instructor Name Role Phone Prashant Ramirez MD Primary Care Prov ider Jabari Marquez MD, Riley Unavailable [phone]- [phone] Allergies Active Allergy Reactions Criticality Noted Date [...] stage from 02/18/2017: pTis (DCIS), ER: Positive, IN: Positive, HER2: Not Assessed - Unsigned Clinical: Unsigned Immunizations Immunization Administration Dates Next Due Influenza, Quadrivalent, Snow [...] on file Legal Sex Female 10:04 AM 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 Gender Identity Not on file Sexual Orientation Not on file Last Filed Vital Signs Vital Sign Reading Time Taken Comments Blood Pressure 141/75 02/21/2022 2:13 PM CDT Pulse 64 02/21/2022 2:13 PM CDT Temperature 36.4 C (97.6 F) 02/21/2022 2:13 PM CDT Respiratory Rate 18 02/21/2022 2:13 PM CDT Oxygen Saturation 99% 02/21/2022 2:1 3 PM CDT Inhaled Oxygen Concentration - - Weight 85.5 kg (188 lb 6.4 oz) 02/22/20 22 2:13 PM CDT with shoes Height 160 cm (5' 3) 02/21/2022 2:13 PM CDT Body Mass Index 33.37 02/21/2022 2:13 PM CDT Plan of Treatment Not on file Insurance MEDICARE [place] [address] [place]ICARE [employer] [place] Care Teams Residential Instructor Relationship Specialty Start Date End Date Prashant Ramirez MD [address] [place] [address] PCP - General Family Medicine 12/23/17 Riley Barboza Jr., MD [address] [place] [address] Medical Oncologist/Care Director Rn Medical Oncology 03/22/19
--- OUTSIDE RECORDS SUMMARY | 2025-02-07 12:09 | XMS_ITS | Encounter Summary ---
Author Organization [facility] Address [address] [facility] [place] [address] Care Team Providers Care Chemical Compounder Name Role Phone Michael Mullins MD Unavailable [phone] Prashant Ramirez MD Primary Care Provider + Encounter Details Date Type Department Care Team (Late st Contact Info) Description 02/23/2020 Lab Requisition [facility] Care DermPath Lab [address] [facility], [place] [phone] Ismael Herrera MD [address] [place] [address] Social History Tobacco Use Types Packs/Day Years Used Date Smoking Tobacco: Never Smokeless Tobacco: Never Alcohol Use Standard Drinks/Week Comments No 0 (1 standard drink = 0.6 oz pur e alcohol) Comments Unknown Sex and Gender Information Value Date Recorded Sex Assigned at Not on file Legal Sex Female 12:11 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 Answer Date of Assessment Author No 02/16/2018 12:08 PM Jannette Harper RN * Is person blind or have serious difficulty seeing? Answer Date of Assessment Author No 02/16/2018 12:08 PM Jannette Harper RN * Does person have serious difficulty walking/climbing stairs? Answer Date of Assessment Author No 02/16/2018 12:08 PM CDT Jannette White RN * Does person have difficulty dressing/bathing? Answer Date of Assessment Author No 02/16/2018 12:08 PM CDT Jannette White RN * Does person have difficulty doing errands alone? Answer Date of Assessment Author No 02/16/2018 12:08 PM CDT Jannette White RN documented as of this encounter Mental Status * Does person have difficulty concentrating/remembering/making decisions? Answer Entry Date Author No 02/16/2018 12:08 PM CDT Jannette White RN documented in this encounter Plan of Treatment Not on file documented as of this encounter Procedures Procedure Name Priority Date/Time Associated Diagnosis Comments DERMATOPATHOLOGY Routine 02/22/2020 12:0 0 AM CDT documented in this encounter Results * DERMATOPATHOLOGY (02/22/2020 12:00 AM CDT) Case Report Dermatopathology Report Case: [id number] Authorizing Provider: Ismael Herrera MD Collected: 02/22/2020 12:00 AM Ordering Location: [facility] DermPath Lab Received: 02/23/2020 03:15 PM Pathologist: Dionne Carmona MD Specimens: A) - Skin, ant vertex B) - Skin, mid vertex C) - Skin, post vertex 0 3:57 PM CDT DERMATOPATHOLOGY LABORATORY Final Diagnosis Specimen [...] (L90.5) (see microscopic description) 0 3:57 PM CDT DERMATOPATHOLOGY LABORATORY at 1557 CDT Clinical History A-C: R/O HAK, SCC. 0 3:57 PM [facility] DERMATOPATHOLOGY LABORATORY Gross Description Specimen A: Received is one formalin filled container labeled with the patient's name and designated ant vertex. The specimen consists of a shave biopsy measuring [id number]. Jar 0. Specimen B: Received is one formalin filled container labeled with the patient's name and designated mid vertex. The specimen consists of a shave biopsy measuring 9c4v6pl. Jar 0. Specimen C: Received is one formalin filled container labeled with the patient's name and designated post vertex. The specimen consists of a shave biopsy measuring 7i6j6pc, bisected. Jar 0. 0 3:57 PM [facility] DERMATOPATHOLOGY LABORATORY Microscopic Description Specimen A. [...] multiple deeper sections examined. 0 3:57 PM [facility] DERMATOPATHOLOGY LABORATORY Disclaimer An external and internal positive and negative controls are appropriate for the histochemical, immunohistochemical and immunofluorescence stain(s) in this case (if any), except where stated explicitly. The performance characteristics of the stain(s) cited in this report were developed and its performance characteristic determined by the Dermatopathology Laboratory at [facility], directed by Dr. Sarahy Sauceda. These tests need not be, and therefore are not, approved by the [place] Food and Drug Administration. The tests are used for clinical purposes. Billing Codes Specimen Charges Stain Charges 64936 37463 09008 1 1 1 0 3:57 PM CDT DERMATOPATHOLOGY LABORATORY Embedded Images 0 3:57 PM CDT DERMATOPATHOLOGY LABORATORY Pathology/Cytology TISSUE SPECIMEN FROM SKIN / Unknown 02/22/2020 02/23/2020 3:15 PM CDT Miscellaneous samples (specimen) TISSUE SPECIMEN FROM SKIN / Unknown 02/22/2020 02/23/2020 3:15 PM CDT Miscellaneous samples (specimen) TISSUE SPECIMEN FROM SKIN / Unknown 02/22/2020 02/23/2020 3:15 PM CDT Ismael Herrera MD LAB - PATHOLOGY/CYTOLOGY ORD ERABLES Final Result DERMATOPATHOLOGY LABORATORY [facility] - Department of Dermatology [facility]/[address] [phone] documented in this encounter Visit Diagnoses Not on filedocumented in this encounter Care Teams Chemical Compounder Relationship Specialty Start Date End Date Prashant Ramirez MD [address] [facility] [address] [place] [address] PCP - General Family Medicine 12/09/17 [place] [address] [facility] [address] [place] [address] Orthopedic Surgery 12/09/17 documented as of this encounter
--- OUTSIDE RECORDS SUMMARY | 2025-02-07 12:09 | XMS_ITS | Clinical Summary ---
Author Organization [facility] Address [address] [facility] [place] [address] Care Team Providers Care Channeling Machine Operator Name Role Phone Michael Mullins MD Unavailable [phone] Prashant Ramirez MD Primary Care Provider + Source Comments [facility],non-owned Affiliates and Associated Physician Practices is amultiple site organization consisting of ambulatory clinics and hospital sitesin [place], [place], [place] and [place]. This disclosure is being madepursuant to the Care Everywhere program and may not contain all information available regarding this patient. Last updated 18.[facility] Allergies Active Allergy Reactions Criticality Noted Date Comments Latex Rash Medium 01/22/2018 Morphine Nausea and/or Vomiting Low 12/16/2011 Medications * Be aware that medications may not be up to date on this document. Alwaysverify current medications with the patient. losartan-hydroCH LOROthiazide (HYZAAR) 100-25 MG tablet Take 1 tablet by mouth once daily 8 Active ezetimibe (ZETIA) 10 MG tablet Take 1 tablet by mouth once daily Active vitamin D, ergocalciferol, (DRISDOL) 72678 UNITS capsule Take 1 capsule by mouth every 7 days On Wednesdays 8 Active tamoxifen (NOLVADEX) 20 MG tablet Take 1 tablet by mouth once daily 8 Active omeprazole (PRILOSEC) 20 MG capsule Take 20 mg by mouth daily before breakfast Active melatonin 3 MG tablet Take 3 mg by mouth nightly as needed for Insomnia Active Multiple Vitamins-Mineral s (HAIR SKIN NAILS PO) Take by mouth 2 times daily Active traMADol (ULTRAM) 50 MG tablet Take 1 tablet by mouth every 6 hours as needed 8 Active aspirin EC (ECOTRIN) 325 MG tablet 8 Active celecoxib (CELEBREX) 200 MG capsuleIndicatio ns:Aftercare following right knee joint replacement surgery Take 1 capsule by mouth 2 times daily 60 capsule 8 Active mometasone (ELOCON) 0.1 % cream 8 Active fluocinonide (LIDEX) 0.05 % solution 9 Active ketoconazole (NIZORAL) 2 % shampoo 9 Active Active Problems Problem Noted Date Diagnosed [...] on file Legal Sex Female 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 Gender Identity Not on file Sexual Orientation Not on file Last Filed Vital Signs Vital Sign Reading Time Taken Comments Blood Pressure 140/54 02/18/2018 7:20 AM CDT Pulse 66 02/18/2018 7:20 AM CDT Temperature 36.5 C (97.7 F) 02/18/2018 7:18 AM CDT Respiratory Rate 16 02/18/2018 7:20 AM CDT Oxygen Saturation 96% 02/18/2018 7:20 AM CDT Inhaled Oxygen Concentration - - Weight 89.4 kg (197 lb) 02/16/2018 6:58 AM CDT Height 160 cm (5' 3) 02/16/2018 6:58 AM CDT Body Mass Index 34.9 02/16/2018 6:58 AM CDT Plan of Treatment Health Maintenance Due Date Last Done Comments BONE DENSITY TESTING 1945 MEDICARE AWV 12 MONTHS 1945 DTAP/TDAP/TD VACCINES (1 - Tdap) 1964 PNEUMOCOCCAL VACCINE 50+ (1 of 1 - PCV) 11/16/1995 ZOSTER VACCINE (1 of 2) 11/16/1995 Respiratory Syncytial Virus (RSV) Vaccine Pt: or over 60 yrs (1 - 1-dose 75+ series) 2020 COVID-19 VACCINE (1 - season) 2024 DEPRESSION SCREENING 07/14/2024 INFLUENZA VACCINE (#1) 2025 9, 05/13/2018, 04/09/2017, Additional history exists HEPATITIS B VACCINE Aged Out No longe r eligible based on patient's age to complete this topic HIB VACCINE Aged Out No longer eligi ble based on patient's age to complete this topic HPV VACCINE Aged Out No longer eligi ble based on patient's age to complete this topic MENINGOCOCCAL (Group B) VACCINE SHARED DECISION-MAKING Aged Out No longer eligible based on patient's age to complete this topic MENINGOCOCCAL GROUPS A/C/Y/W VACCINE Aged Out No longer eligible based on patient's age to complete this topic Medical Devices Implanted Type Area Cartoon Designer Device Identifier Shelf Expiration Date Model / Serial / Lot Cmnt Bone Cblt 40gm Hvisc Strl Implanted:Qty: 1 on 02/16/2018 by Michael Mullins MD at [facility] Right: Knee [employer] 04/12/2019 [id number] / / [id number] Tray Tib 75mm Kn Cocr I Beam Implanted:Qty: 1 on 02/16/2018 by Michael Mullins MD at [facility] Right: Knee [employer] 10/19/2027 [id number] / / [id number] Cmpnt Fem Kn Rt Cr Cmnt Prm Vngrd Intlk 65mm Implanted:Qty: 1 on 02/16/2018 by Michael Mullins MD at [facility] Right: Knee [employer] 12/04/2027 [id number] / / [id number] Cmpnt Ptlr 28mm 1 Pg Wire Ascnt Arcm Kn Implanted:Qty: 1 on 02/16/2018 by Michael Mullins MD at [facility] Right: Knee [employer] 01/22/2023 [id number] / / [id number] Brng [id number] Vngrd Arcm Kn Ant Stab Implanted:Qty: 1 on 02/16/2018 by Michael Mullins MD at [facility] Right: Knee [employer] 12/26/2022 [id number] / / [id number] Insurance MEDICARE [facility] Address: [address] [place] [address] MEDICARE ANTHEM Advance Directives * Full Code (Latest Code Status on File) Date Activated Date Inactivated Comments 02/16/2018 12:02 PM 02/18/2018 4:15 PM Care Teams Channeling Machine Operator Relationship Specialty Start Date End Date Prashant Ramirez MD [address] [facility] 100 [place] [address] PCP - General Family Medicine 12/09/17 [place] [address] [facility] [address] [place] [address] Orthopedic Surgery 12/09/17
--- OUTSIDE RECORDS SUMMARY | 2025-02-07 12:09 | XMS_ITS | Encounter Summary ---
Author Organization [facility] Address [address] [facility] [place] [address] Care Team Providers Care Injection Molding Engineer Name Role Phone Michael Mullins MD Unavailable [phone] Prashant Ramirez MD Primary Care Provider + Encounter Details Date Type Department Care Team (Late st Contact Info) Description 12/17/2023 Lab Requisition [facility] - DermPath Lab [address] [facility], [place] [phone] Ismael Herrera MD [address] [place] [address] Social History Tobacco Use Types Packs/Day Years Used Date Smoking Tobacco: Never Smokeless Tobacco: Never Alcohol Use Standard Drinks/Week Comments No 0 (1 standard drink = 0.6 oz pur e alcohol) Comments Unknown Sex and Gender Information Value Date Recorded Sex Assigned at Not on file 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 Female 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 Gender Identity Not on file Sexual Orientation [...] 3:33 AM CDT) Case Report Dermatopathology Report Case: [id number] Authorizing Provider: Ismael Herrera MD Collected: 12/16/2023 03:33 AM Ordering Location: [facility] - Received: 12/17/2023 02:30 PM DermPath Lab Pathologist: Dionne Carmona MD Specimens: A) - Skin, left nasal tip B) - Skin, right nasal tip C) - Skin, left distal extensor forearm 4 4:49 PM CDT DERMATOPATHOLOGY LABORATORY Amended [...] 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 B: R/O BCC. C: R/O HAK SCC. 4:49 PM CDT DERMATOPATHOLOGY LABORATORY Gross Description [...] shave biopsy measuring 9x8x5 mm. Jar 0. 4:49 PM CDT DERMATOPATHOLOGY LABORATORY Microscopic Description [...] mitoses at different levels, and dyskeratotic cells. 4:49 PM T DERMATOPATHOLOGY LABORATORY Disclaimer An external and internal positive and negative controls are appropriate for the histochemical, immunohistochemical and immunofluorescence stain(s) in this case (if any), except where stated explicitly. The performance characteristics of the stain(s) cited in this report were developed and its performance characteristic determined by the Dermatopathology Laboratory at [facility], directed by Dr. Sarahy Sauceda. These tests need not be, and therefore are not, approved by the [place] Food and Drug Administration. The tests are used for clinical purposes. Billing Codes Specimen Charges Stain Charges 54003 04907 67006 1 1 1 4 4:49 PM CDT DERMATOPATHOLOGY LABORATORY Embedded Images 4:49 PM CDT DERMATOPATHOLOGY LABORATORY Pathology/Cytology TISSUE SPECIMEN FROM SKIN / Unknown 12/16/2023 3:33 AM CDT 12/17/2023 2:30 PM CDT Miscellaneous samples (specimen) TISSUE SPECIMEN FROM SKIN / Unknown 12/16/2023 3:33 AM CDT 12/17/2023 2:30 PM CDT Miscellaneous samples (specimen) TISSUE SPECIMEN FROM SKIN / Unknown 12/16/2023 3:33 AM CDT 12/17/2023 2:30 PM CDT Ismael Herrera MD LAB - PATHOLOGY/CYTOLOGY ORD ERABLES Edited Result - Final DERMATOPATHOLOGY LABORATORY [facility] - Department of Dermatology [facility] [address] [place] [address], [address] [phone] documented in this encounter Visit Diagnoses Not on filedocumented in this encounter Care Teams Injection Molding Engineer Relationship Specialty Start Date End Date Prashant Ramirez MD [address] [facility] [address] [place] [address] PCP - General Family Medicine 12/09/17 [place] [address] [facility] [address] [place] [address] Orthopedic Surgery 12/09/17 documented as of this encounter
--- OUTSIDE RECORDS SUMMARY | 2025-02-07 12:09 | XMS_ITS | Clinical Summary ---
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 Gender Identity Not on file Sexual Orientation [...] 2024 05/22/2021, 10/09/2020, 09/10/2020 Influenza Vaccine (#1) 2025 , 04/04/2020, 04/19/2019, Additional history exists Pneumococcal vaccine 65+ Completed 020, 04/13/2016, 04/26/2014 Insurance MEDICARE [facility] MEDICARE [facility] Care Teams Industrial Truck Operator Relationship Specialty Start Date End Date Prashant Ramirez MD [address] [place] [address] PCP - General Family Medicine 12/23/17 Riley Barboza Jr., MD [address] [place] [address] Medical Oncologist/School Photographer Medical Oncology 03/22/19
--- OUTSIDE RECORDS SUMMARY | 2025-02-07 12:09 | XMS_ITS | Patient Health Record ---
Author Organization [facility] Address [address] [place], [place] [address] Care Team Providers Care Rental Agent Name Role Phone BRITTANI Delcid Unavailable [phone] Prashant Ramirez Unavailable Unavailable Reason For Referral No Information Medications Medication SIG (Take, Route, Frequency, Duration) Notes Start Date End Date Status hydrochlorothiazide 12.5 MG / losartan potassium 50 MG Oral Tablet ORAL hydrochlorothiazide 12.5 MG / losartan potassium 50 MG Oral TabletOriginal Medicationhydrochlorothiazide 12.5 MG / losartan potassium 50 MG Oral Tablet *Reorder from Zenops for eRx and Interaction Alerts* Active ezetimibe 10 MG Oral Tablet [Zetia] ORAL ezetimibe 10 MG Oral Tablet [Zetia]Original Medicationezetimibe 10 MG Oral Tablet [Zetia] *Reorder from Zenops for eRx and Interaction Alerts* Active esomeprazole 40 MG Delayed Release Oral Capsule [Nexium] ORAL esomeprazole 40 MG Delayed Release Oral Capsule [Nexium]Original Medicationesomeprazole 40 MG Delayed Release Oral Capsule [Nexium] *Reorder from Zenops for eRx and Interaction Alerts* Active dicyclomine hydrochloride 20 MG Oral Tablet ORAL dicyclomine hydrochloride 20 MG Oral TabletOriginal Medicationdicyclomine hydrochloride 20 MG Oral Tablet *Reorder from Zenops for eRx and Interaction Alerts* Active hydrochlorothiazide 50 MG / metoprolol tartrate 100 MG Oral Tablet ORAL hydrochlorothiazide 50 MG / metoprolol tartrate 100 MG Oral TabletOriginal Medicationhydrochlorothiazide 50 MG / metoprolol tartrate 100 MG Oral Tablet *Reorder from Zenops for eRx and Interaction Alerts* 012 Active cholecalciferol 0.025 MG Chewable Tablet ORAL cholecalciferol 0.025 MG Chewable TabletOriginal Medicationcholecalciferol 0.025 MG Chewable Tablet *Reorder from Xcerionan for eRx and Interaction Alerts* 012 Active Plan Of Treatment No Information Insurance Providers Payer Name Payer Address Payer Phone Subscriber Number Group Number Insured Name Patient Relationship to Insured Coverage Start Date Coverage End Date Medicare Part B [place] [address] [place] [address] [id number] MAKSIM PROCTOR Self - patient is the insured [facility] ([facility] ATTN CLAIMS [address] [place] [address] [id number] MAKSIM RPOCTOR Self - patient is the insured [facility] [address] [address] [place], [place] [id number] MAKSIM PROCTOR Self - patient is the insured
--- OUTSIDE RECORDS SUMMARY | 2025-02-07 12:09 | XMS_ITS | Encounter Summary ---
Author Organization [facility] Address [address] [place] [address] Care Team Providers Care Mold Technician Name Role Phone Michael Mullins MD Unavailable [phone] Prashant Ramriez MD Primary Care Provider + Encounter Details Date Type Department Care Team (Late st Contact Info) Description 09/09/2019 Lab Requisition [facility] Care DermPath Lab [address] [facility] [place] [phone] Ismael Herrera MD [address] [place] [address] Social History Tobacco Use Types Packs/Day Years Used Date Smoking Tobacco: Never Smokeless Tobacco: Never Alcohol Use Standard Drinks/Week Comments No 0 (1 standard drink = 0.6 oz pur e alcohol) Comments Unknown Sex and Gender Information Value Date Recorded Sex Assigned at Not on file Legal Sex Female 12:11 PM CALL CENTER TRAINER Gender Identity Not on file Sexual [...] Jannette Harper RN * Does person have difficulty dressing/bathing? Answer Date of Assessment Author No 02/16/2018 12:08 PM Jannette Harper RN * Does person have difficulty doing errands alone? Answer Date of Assessment Author No 02/16/2018 12:08 PM Jannette Harper RN documented as of this encounter Mental Status * Does person have difficulty concentrating/remembering/making decisions? Answer Entry Date Author No 02/16/2018 12:08 PM Jannette Harper RN documented in this encounter Plan of Treatment Not on file documented as of this encounter Procedures Procedure Name Priority Date/Time Associated Diagnosis Comments DERMATOPATHOLOGY Routine 09/08/2019 12:0 0 AM CALL CENTER TRAINER documented in this encounter Results * DERMATOPATHOLOGY (09/08/2019 12:00 AM CALL CENTER TRAINER) Case Report Dermatopathology Report Case: [id number] Authorizing Provider: Ismael Herrera MD Collected: 09/08/2019 12:00 AM Ordering Location: [facility] DermPath Lab Received: 09/09/2019 02:02 PM Pathologist: Jah Sauceda MD Specimens: A) - Skin, vertex scalp B) - Skin, left paraspinal lower neck C) - Skin, right cheek 0 12:52 PM [facility] DERMATOPATHOLOGY LABORATORY Final Diagnosis Specimen A. SKIN, vertex scalp: HYPERPLASTIC (HYPERTROPHIC) ACTINIC KERATOSIS (L57.0) HEALING SKIN CHANGES (L90.5) Specimen B. SKIN, left paraspinal lower neck: LICHEN PLANUS-LIKE KERATOSIS (BENIGN LICHENOID KERATOSIS) (L82.1) Specimen C. SKIN, right cheek: BASAL CELL CARCINOMA (C44.319) (see microscopic description and comment) 0 12:52 PM CALL CENTER TRAINER DERMATOPATHOLOGY LABORATORY at 1252 CALL CENTER TRAINER Clinical History A: R/O SCC. B: R/O SCCIS, BCC, LPLK. 0 12:52 PM CALL CENTER TRAINER DERMATOPATHOLOGY LABORATORY Gross Description Specimen A: Received is one formalin filled container labeled with the patient's name and designated vertex scalp. The specimen consists of a shave biopsy measuring [id number]. Jar 0. Specimen B: Received is one formalin filled container labeled with the patient's name and designated left paraspinal lower neck. The specimen consists of a shave biopsy measuring [id number]. Jar 0. Specimen C: Received is one formalin filled container labeled with the patient's name and designated right cheek. The specimen consists of a shave biopsy measuring [id number]. Jar 0. 0 12:52 PM [facility] DERMATOPATHOLOGY LABORATORY Microscopic Description Specimen A. SKIN, [...] subtyping of the lesion. 0 12:52 PM [facility] DERMATOPATHOLOGY LABORATORY Disclaimer An external and internal positive and negative controls are appropriate for the histochemical, immunohistochemical and immunofluorescence stain(s) in this case (if any), except where stated explicitly. The performance characteristics of the stain(s) cited in this report were developed and its performance characteristic determined by the Dermatopathology Laboratory at [facility], directed by Dr. Sarahy Sauceda. These tests need not be, and therefore are not, approved by the [place] Food and Drug Administration. The tests are used for clinical purposes. Billing Codes Specimen Charges Stain Charges 14160 35987 50388 1 1 1 0 12:52 PM [facility] DERMATOPATHOLOGY LABORATORY Embedded Images 0 12:52 PM [facility] DERMATOPATHOLOGY LABORATORY Pathology/Cytology TISSUE SPECIMEN FROM SKIN / Unknown 09/08/2019 09/09/2019 2:02 PM CALL CENTER TRAINER Miscellaneous samples (specimen) TISSUE SPECIMEN FROM SKIN / Unknown 09/08/2019 09/09/2019 2:02 PM CALL CENTER TRAINER Miscellaneous samples (specimen) TISSUE SPECIMEN FROM SKIN / Unknown 09/08/2019 09/09/2019 2:02 PM CALL CENTER TRAINER Ismael Herrera MD LAB - PATHOLOGY/CYTOLOGY ORD ERABLES Final Result DERMATOPATHOLOGY LABORATORY [facility] - Department of Dermatology [address] [place] [address], 5th Floor Lab B [address] [phone] documented in this encounter Visit Diagnoses Not on filedocumented in this encounter Care Teams Mold Technician Relationship Specialty Start Date End Date Prashant Ramirez MD [address] [facility] [address] [place] [address] PCP - General Family Medicine 12/09/17 [place] [address] [facility] [address] [place] [address] Orthopedic Surgery 12/09/17 documented as of this encounter
== END 2025-02-07 12:06 | disposition home or self-care (01) ==
PROVIDERS: PCP Family Medicine Adolescent Medicine; Visit Provider Obstetrics & Gynecology Gynecology
DX: E55.9 Vitamin D deficiency, unspecified (principal)
CPT/HCPCS: 36415; 82306

== ENCOUNTER 2025-02-14 09:13 | Emergency (ER) | payer MEDICARE, BC, SELFPAY ==
--- NOTE | ~2025-02-14 | XR_ITS ---
XR chest 2V 02/14/2025 10:16 Indication: Chest pain Procedure: 2 view chest Comparison: Comparison to multiple prior studies sequentially, with oldest reviewed study dated 02/28. Findings: Cardiomegaly. Small pleural effusions. Bibasilar airspace disease may represent atelectasis or pneumonia. No edema or pneumothorax. Impression: 1: Bibasilar airspace disease may represent atelectasis and/or pneumonia. 2: Small pleural effusions. Reviewed, dictated and finalized at location A. Impression: 1: Bibasilar airspace disease may represent atelectasis and/or pneumonia. 2: Small pleural effusions.
--- NOTE | 2025-02-14 09:14 | ECG_ITS ---
Test Date: 2025-02-14 09:18:51 Measurements Intervals [place] Rate: 136 P: 0 AK: 0 QRS: -34 QRSD: 98 T: 82 QT: 326 QTc: 492 Interpretive Statements ATRIAL FIBRILLATION WITH RAPID VENTRICULAR RESPONSE WITH ABERRANT CONDUCTION OR VENTRICULAR PREMATURE COMPLEXES LEFT AXIS DEVIATION BORDERLINE R WAVE PROGRESSION, ANTERIOR LEADS NONSPECIFIC ST & T-WAVE ABNORMALITY- HIGH LATERAL LEADS ABNORMAL ECG No previous ECG available for comparison Electronically Signed On 02-14-2025 09:22:32 CDT by Goldy Jerome D.O.
[2025-02-14 09:17] VITALS: BP 127/82; PULSE 106; RESP 20; TEMP 36.4; O2SAT 99
--- OUTSIDE RECORDS SUMMARY | 2025-02-14 09:25 | XMS_ITS | Clinical Summary ---
Author [facility] Address [address] [place] [address] Care Team Providers Care Picture Frame Maker Name Role Phone Prashant Ramirez MD Primary Care Provider [phone] Allergies Active Allergy Reactions Criticality Noted Date [...] unit capsule 11/12/2017 Active multivitamin/fol ic acid/biotin ([id number] , [id number], ORAL) Take by mouth. Active melatonin 3 [...] INFLUENZA VACCINE (#1) 2025 05/13/[address] [place] [address] MEDICARE PART A AND B [facility] Care Teams Picture Frame Maker Relationship Specialty Start Date End Date Prashant Ramirez MD PCP - General Family Practice 12/10/17
--- OUTSIDE RECORDS SUMMARY | 2025-02-14 09:25 | XMS_ITS | Referral Summary ---
Author Organization [facility] Address [address] [place] [address] [place] [address] Care Team Providers Care Licensed Mental Health Counselor Name Role Phone Prashant Ramirez MD Primary Care Prov ider Jabari Marquez MD, Riley Unavailable [phone] Allergies Active Allergy Reactions Criticality Noted Date [...] stage from 02/18/2017: pTis (DCIS), ER: Positive, HI: Positive, HER2: Not Assessed - Unsigned Clinical: [...] on file Legal Sex Female 10:04 AM INSURANCE FOLLOW UP SPECIALIST Gender Identity Not on file Sexual Orientation [...] of Treatment Not on file Insurance MEDICARE [employer] [place] [address] [place] [address] MEDICARE [employer] [place] Care Teams Licensed Mental Health Counselor Relationship Specialty Start Date End Date Prashant Ramirez MD [address] [place] [address] PCP - General Family Medicine 12/23/17 Riley Barboza Jr., MD [address] [place] [address] Medical Oncologist/Incident Manager Medical Oncology 03/22/19
--- OUTSIDE RECORDS SUMMARY | 2025-02-14 09:26 | XMS_ITS | Encounter Summary ---
Author Organization [facility] Address [address] [place] [address] Care Team Providers Care Set Up Mechanic Crown Assembly Machine Name Role Phone Michael Mullins MD Unavailable [phone] Prashant Ramirez MD Primary Care Provider + Encounter Details Date Type Department Care Team (Late st Contact Info) Description 09/09/2019 Lab Requisition [facility] Care DermPath Lab [address] [facility] [place] [phone] Ismael Herrera MD [address] [place] [address] Social History Tobacco Use Types Packs/Day Years Used Date Smoking Tobacco: Never Smokeless Tobacco: Never Alcohol Use Standard Drinks/Week Comments No 0 (1 standard drink = 0.6 oz pur e alcohol) Comments Unknown Sex and Gender Information Value Date Recorded Sex Assigned at Not on file Legal Sex Female 12:11 PM FINANCIAL SERVICES CONSULTANT Gender Identity Not on file Sexual Orientation [...] Comments DERMATOPATHOLOGY Routine 09/08/2019 12:0 0 AM FINANCIAL SERVICES CONSULTANT documented in this encounter Results * DERMATOPATHOLOGY (09/08/2019 12:00 AM FINANCIAL SERVICES CONSULTANT) Case Report Dermatopathology Report Case: [id number] Authorizing Provider: Ismael Herrera MD Collected: 09/08/2019 12:00 AM Ordering Location: [facility] DermPath Lab Received: 09/09/2019 02:02 PM Pathologist: Jah Sauceda MD Specimens: A) - Skin, vertex scalp B) - Skin, left paraspinal lower neck C) - Skin, right cheek 0 12:52 PM [facility] DERMATOPATHOLOGY LABORATORY Final Diagnosis Specimen A. SKIN, vertex scalp: HYPERPLASTIC (HYPERTROPHIC) ACTINIC KERATOSIS (L57.0) HEALING SKIN CHANGES (L90.5) Specimen B. SKIN, left paraspinal lower neck: LICHEN PLANUS-LIKE KERATOSIS (BENIGN LICHENOID KERATOSIS) (L82.1) Specimen C. SKIN, right cheek: BASAL CELL CARCINOMA (C44.319) (see microscopic description and comment) 0 12:52 PM FINANCIAL SERVICES CONSULTANT DERMATOPATHOLOGY LABORATORY at 1252 FINANCIAL SERVICES CONSULTANT Clinical History A: R/O SCC. B: R/O SCCIS, BCC, LPLK. 0 12:52 PM FINANCIAL SERVICES CONSULTANT DERMATOPATHOLOGY LABORATORY Gross Description Specimen A: Received is one formalin filled container labeled with the patient's name and designated vertex scalp. The specimen consists of a shave biopsy measuring [id number]. Jar 0. Specimen B: Received is one formalin filled container labeled with the patient's name and designated left paraspinal lower neck. The specimen consists of a shave biopsy measuring [id number]. Jar 0. Specimen C: Received is one formalin filled container labeled with the patient's name and designated right cheek. The specimen consists of a shave biopsy measuring [id number]. Jar 0. 0 12:52 PM [facility] DERMATOPATHOLOGY LABORATORY Microscopic Description Specimen A. [...] subtyping of the lesion. 0 12:52 PM [facility] DERMATOPATHOLOGY LABORATORY Disclaimer An external and internal positive and negative controls are appropriate for the histochemical, immunohistochemical and immunofluorescence stain(s) in this case (if any), except where stated explicitly. The performance characteristics of the stain(s) cited in this report were developed and its performance characteristic determined by the Dermatopathology Laboratory at [facility], directed by Dr. Sarahy Sauceda. These tests need not be, and therefore are not, approved by the [place] Food and Drug Administration. The tests are used for clinical purposes. Billing Codes Specimen Charges Stain Charges 15739 [id number] 1 1 1 0 12:52 PM [facility] DERMATOPATHOLOGY LABORATORY Embedded Images 0 12:52 PM [facility] DERMATOPATHOLOGY LABORATORY Pathology/Cytology TISSUE SPECIMEN FROM SKIN / Unknown 09/08/2019 09/09/2019 2:02 PM FINANCIAL SERVICES CONSULTANT Miscellaneous samples (specimen) TISSUE SPECIMEN FROM SKIN / Unknown 09/08/2019 09/09/2019 2:02 PM FINANCIAL SERVICES CONSULTANT Miscellaneous samples (specimen) TISSUE SPECIMEN FROM SKIN / Unknown 09/08/2019 09/09/2019 2:02 PM FINANCIAL SERVICES CONSULTANT Ismael Herrera MD LAB - PATHOLOGY/CYTOLOGY ORD ERABLES Final Result DERMATOPATHOLOGY LABORATORY [facility] - Department of Dermatology [address] [place] [address], 5th Floor Lab [address] [phone] documented in this encounter Visit Diagnoses Not on filedocumented in this encounter Care Teams Set Up Mechanic Crown Assembly Machine Relationship Specialty Start Date End Date Prashant Ramirez MD [address] [facility] [address] [place] [address] PCP - General Family Medicine 12/09/17 [place] [address] [facility] [address] [place] [address] Orthopedic Surgery 12/09/17 documented as of this encounter
--- OUTSIDE RECORDS SUMMARY | 2025-02-14 09:26 | XMS_ITS | Patient Health Record ---
Author Organization [facility] Address [address] [place], [place] [address] Care Team Providers Care Fabrication Mig Welder Name Role Phone BRITTANI Delcid Unavailable Prashant Ramirez Unavailable Unavailable Reason For Referral No Information Medications Medication SIG (Take, Route, Frequency, Duration) Notes Start Date End Date Status hydrochlorothiazide 12.5 MG / losartan potassium 50 MG Oral Tablet ORAL hydrochlorothiazide 12.5 MG / losartan potassium 50 MG Oral TabletOriginal Medicationhydrochlorothiazide 12.5 MG / losartan potassium 50 MG Oral Tablet *Reorder from En Noir for eRx and Interaction Alerts* Active ezetimibe 10 MG Oral Tablet [Zetia] ORAL ezetimibe 10 MG Oral Tablet [Zetia]Original Medicationezetimibe 10 MG Oral Tablet [Zetia] *Reorder from En Noir for eRx and Interaction Alerts* Active esomeprazole 40 MG Delayed Release Oral Capsule [Nexium] ORAL esomeprazole 40 MG Delayed Release Oral Capsule [Nexium]Original Medicationesomeprazole 40 MG Delayed Release Oral Capsule [Nexium] *Reorder from En Noir for eRx and Interaction Alerts* Active dicyclomine hydrochloride 20 MG Oral Tablet ORAL dicyclomine hydrochloride 20 MG Oral TabletOriginal Medicationdicyclomine hydrochloride 20 MG Oral Tablet *Reorder from En Noir for eRx and Interaction Alerts* Active hydrochlorothiazide 50 MG / metoprolol tartrate 100 MG Oral Tablet ORAL hydrochlorothiazide 50 MG / metoprolol tartrate 100 MG Oral TabletOriginal Medicationhydrochlorothiazide 50 MG / metoprolol tartrate 100 MG Oral Tablet *Reorder from En Noir for eRx and Interaction Alerts* 012 Active cholecalciferol 0.025 MG Chewable Tablet ORAL cholecalciferol 0.025 MG Chewable TabletOriginal Medicationcholecalciferol 0.025 MG Chewable Tablet *Reorder from [employer] for eRx and Interaction Alerts* 012 Active Plan Of Treatment No Information Insurance Providers Payer Name Payer Address Payer Phone Subscriber Number Group Number Insured Name Patient Relationship to Insured Coverage Start Date Coverage End Date Medicare Part B [place] [address] [place] [phone] [id number] MAKSIM PROCTOR Self - patient is the insured [facility] ([facility]) ATTN CLAIMS [address] [place] [address] [id number] MAKSIM PROCTOR Self - patient is the insured [facility] [address] [address] [place], [place] [id number] MAKSIM PROCTOR Self - patient is the insured
--- OUTSIDE RECORDS SUMMARY | 2025-02-14 09:26 | XMS_ITS | Encounter Summary ---
Author Organization [facility] Address [address] [facility] [place] [address] Care Team Providers Care Radiology Rn Name Role Phone Michael Mullins MD Unavailable [phone] Prashant Ramirez MD Primary Care Provider + Encounter Details Date Type Department Care Team (Late st Contact Info) Description 02/23/2020 Lab Requisition [facility] Care DermPath Lab [address] [facility] [place] [address] Ismael Herrera MD [address] [place] [address] Social History Tobacco Use Types Packs/Day Years Used Date Smoking Tobacco: Never Smokeless Tobacco: Never Alcohol Use Standard Drinks/Week Comments No 0 (1 standard drink = 0.6 oz pur e alcohol) Comments Unknown Sex and Gender Information Value Date Recorded Sex Assigned at Not on file Legal Sex Female 12:11 PM AIRFIELD SERVICES OFFICER Gender Identity Not on file Sexual Orientation [...] AM CDT) Case Report Dermatopathology Report Case: [id number] Authorizing Provider: Ismael Herrera MD Collected: 02/22/2020 12:00 AM Ordering Location: [facility] DermPath Lab Received: 02/23/2020 03:15 PM Pathologist: [...] A-C: R/O HAK, SCC. 0 3:[address] [facility] DERMATOPATHOLOGY LABORATORY Gross Description Specimen A: Received is one formalin filled container labeled with the patient's name and designated ant vertex. The specimen consists of a shave biopsy measuring 5d3v0wd. Jar 0. Specimen B: Received is one formalin filled container labeled with the patient's name and designated mid vertex. The specimen consists of a shave biopsy measuring [id number]. Jar 0. Specimen C: Received is one formalin filled container labeled with the patient's name and designated post vertex. The specimen consists of a shave biopsy measuring 4v1y8dw, bisected. Jar 0. 0 3:[address] [facility] DERMATOPATHOLOGY LABORATORY Microscopic Description Specimen A. SKIN, [...] multiple deeper sections examined. 0 3:[address] [facility] DERMATOPATHOLOGY LABORATORY Disclaimer An external and internal positive and negative controls are appropriate for the histochemical, immunohistochemical and immunofluorescence stain(s) in this case (if any), except where stated explicitly. The performance characteristics of the stain(s) cited in this report were developed and its performance characteristic determined by the Dermatopathology Laboratory at [facility], directed by Dr. Sarahy Sauceda. These tests need not be, and therefore are not, approved by the [place] Food and Drug Administration. The tests are used for clinical purposes. Billing Codes Specimen Charges Stain Charges 08190 [id number] [id number] 1 1 1 0 3:57 PM CDT [...] PATHOLOGY/CYTOLOGY ORD ERABLES Final Result DERMATOPATHOLOGY LABORATORY [facility] - Department of Dermatology [facility]/[address] [phone] documented in this encounter Visit Diagnoses Not on filedocumented in this encounter Care Teams Radiology Rn Relationship Specialty Start Date End Date Prashant Ramirez MD [address] [facility] [address] [place] [address] PCP - General Family Medicine 12/09/17 [place] [address] [facility] [address] [place] [address] Orthopedic Surgery 12/09/17 documented as of this encounter
--- OUTSIDE RECORDS SUMMARY | 2025-02-14 09:26 | XMS_ITS | Clinical Summary ---
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
--- OUTSIDE RECORDS SUMMARY | 2025-02-14 09:26 | XMS_ITS | Clinical Summary ---
Author Organization [facility] Address [address] [place] [address] Care Team Providers Care Video Photographer Name Role Phone Michael Mullins MD Unavailable [phone] Prashant Ramirez MD Primary Care Provider + Source Comments [facility],non-owned Affiliates and Associated Physician Practices is amultiple site organization consisting of ambulatory clinics and hospital sitesin [place], [place], [place] and [place]. This disclosure is being madepursuant to the Care Everywhere program and may not contain all information available regarding this patient. 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 Gender Identity Not on file Sexual Orientation [...] this topic Medical Devices Implanted Type Area Tin Assorter Device Identifier Shelf Expiration Date Model / Serial / Lot Cmnt Bone Cblt 40gm Hvisc Strl Implanted:Qty: 1 on 02/16/2018 by Michael Mullins MD at [facility] Right: Knee [employer] 04/12/2019 600-15-000 / / [id number] Tray Tib 75mm Kn Cocr I Beam Implanted:Qty: 1 on 02/16/2018 by Michael Mullins MD at [facility] Right: Knee [employer] 10/19/2027 [id number] / / [id number] Cmpnt Fem Kn Rt Cr Cmnt Prm Vngrd Intlk 65mm Implanted:Qty: 1 on 02/16/2018 by Michael Mullins MD at [facility] Right: Knee [employer] 12/04/2027 [id number] / / [id number] Cmpnt Ptlr 28mm 1 Pg Wire Ascnt Arcm Kn Implanted:Qty: 1 on 02/16/2018 by Michael Mullins MD at [facility] Right: Knee [employer] 01/22/2023 [id number] / / [id number] [id number] Vngrd Arcm Kn Ant Stab Implanted:Qty: 1 on 02/16/2018 by Michael Mullins MD at [facility] Right: Knee [employer] 12/26/2022 [id number] / / [id number] Insurance MEDICARE [facility] MEDICARE ANTHEM Advance Directives * Full Code (Latest Code Status on File) Date Activated Date Inactivated Comments 02/16/2018 12:02 PM 02/18/2018 4:15 PM Care Teams Video Photographer Relationship Specialty Start Date End Date Prashant Ramirez MD [address] [facility] [address] [place] [address] PCP - General Family Medicine 12/09/17 [place] [address] [facility] [address] [place] [address] Orthopedic Surgery 12/09/17
--- OUTSIDE RECORDS SUMMARY | 2025-02-14 09:26 | XMS_ITS | Encounter Summary ---
Author Organization [facility] Address [address] [facility] [place] [address] Care Team Providers Care Shuttle Car Operator Name Role Phone Michael Mullins MD Unavailable [phone] Prashant Ramirez MD Primary Care Provider + Encounter Details Date Type Department Care Team (Late st Contact Info) Description 12/17/2023 Lab Requisition [facility] - DermPath Lab [address] [facility], [place] [id number] Ismael Herrera MD [address] [place] [address] Social History Tobacco Use Types Packs/Day Years Used Date Smoking Tobacco: Never Smokeless Tobacco: Never Alcohol Use Standard Drinks/Week Comments No 0 (1 standard drink = 0.6 oz pur e alcohol) Comments Unknown Sex and Gender Information Value Date Recorded Sex Assigned at Not on file Legal 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 Sarahy Sauceda. These tests need not be, and therefore are not, approved by the [place] Food and Drug Administration. The tests are used for clinical purposes. Billing Codes Specimen Charges Stain Charges 56858 34992 68020 1 1 1 4 4:49 PM CDT [...] ERABLES Edited Result - Final DERMATOPATHOLOGY LABORATORY [facility] - Department of Dermatology [facility] Medicine [address] [place] [address], [address]rd [address] [phone] documented in this encounter Visit Diagnoses Not on filedocumented in this encounter Care Teams Shuttle Car Operator Relationship Specialty Start Date End Date Prashant Ramirez MD [address] [facility] 100 [place] [address] PCP - General Family Medicine 12/09/17 [place] [address] [facility] [address] [place] [address] Orthopedic Surgery 12/09/17 documented as of this encounter
[2025-02-14] MEDS: ASPIRIN 81 MG CHEWABLE TABLET 324 MG PO (09:32)
[2025-02-14 09:45] LABS: Hematocrit 37.0 % (37.0-47.0); Hemoglobin 11.3 g/dL (12.0-15.0); Immature Granulocyte Percent A 0.2 % (0-0.5); Immature Platelet Fraction Pct 4.6 % (0.9-11.2); Lymphocytes Absolute Auto 1.94 K/mm3 (0.9-3.2); Mean Corpuscular HGB Conc 30.5 g/dl (32-36); Mean Corpuscular Hemoglobin 29.7 pg (26-34); Mean Corpuscular Volume 97.1 fl (80-100); Nucleated Red Blood Cells Absolute Auto 0.000 K/mm3 (0.0-0.012); Nucleated Red Blood Cells Perc 0.0 % (0.0-0.2); Platelet Count Result 110 k/mm3 (150-375); Red Blood Count 3.81 M/mm3 (4.2-5.4); White Blood Count 4.5 K/mm3 (4.5-10.0)
[2025-02-14 09:53] LABS: INR 1.9; Prothrombin Time 21.5 Seconds (11.1-14.7)
[2025-02-14 09:54] LABS: Partial Thromboplastin Time 41.5 Seconds (22.3-36.8)
--- OUTSIDE RECORDS SUMMARY | 2025-02-14 10:01 | XMS_ITS | Clinical Summary ---
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
--- OUTSIDE RECORDS SUMMARY | 2025-02-14 10:01 | XMS_ITS | Encounter Summary ---
Author Organization [facility] Address [address] [facility] [place] [address] Care Team Providers Care Body Sander Name Role Phone Michael Mullins MD Unavailable [phone] Prashant Ramirez MD Primary Care Provider + Encounter Details Date Type Department Care Team (Late st Contact Info) Description 09/09/2019 Lab Requisition [facility] Care DermPath Lab [address] [facility], [place] [phone] Ismael Herrera MD [address] [place] [address] Social History Tobacco Use Types Packs/Day Years Used Date Smoking Tobacco: Never Smokeless Tobacco: Never Alcohol Use Standard Drinks/Week Comments No 0 (1 standard drink = 0.6 oz pur e alcohol) Comments Unknown Sex and Gender Information Value Date Recorded Sex Assigned at Not on file Legal Sex Female 12:11 PM BACKSHOE PERSON Gender Identity Not on file Sexual Orientation [...] Comments DERMATOPATHOLOGY Routine 09/08/2019 12:0 0 AM BACKSHOE PERSON documented in this encounter Results * DERMATOPATHOLOGY (09/08/2019 12:00 AM BACKSHOE PERSON) Case Report Dermatopathology Report Case: [id number] Authorizing Provider: Ismael Herrera MD Collected: 09/08/2019 12:00 AM Ordering Location: [facility] DermPath Lab Received: 09/09/2019 02:02 PM Pathologist: Jah Sauceda MD Specimens: A) - Skin, vertex scalp B) - Skin, left paraspinal lower neck C) - Skin, right cheek 0 12:52 PM [facility] DERMATOPATHOLOGY LABORATORY Final Diagnosis Specimen A. SKIN, vertex scalp: HYPERPLASTIC (HYPERTROPHIC) ACTINIC KERATOSIS (L57.0) HEALING SKIN CHANGES (L90.5) Specimen B. SKIN, left paraspinal lower neck: LICHEN PLANUS-LIKE KERATOSIS (BENIGN LICHENOID KERATOSIS) (L82.1) Specimen C. SKIN, right cheek: BASAL CELL CARCINOMA (C44.319) (see microscopic description and comment) 0 12:52 PM BACKSHOE PERSON DERMATOPATHOLOGY LABORATORY at [address] BACKSHOE PERSON Clinical History A: R/O SCC. B: R/O SCCIS, BCC, LPLK. 0 12:52 PM BACKSHOE PERSON DERMATOPATHOLOGY LABORATORY Gross Description Specimen A: Received is one formalin filled container labeled with the patient's name and designated vertex scalp. The specimen consists of a shave biopsy measuring 0y2o6yc. Jar 0. Specimen B: Received is one formalin filled container labeled with the patient's name and designated left paraspinal lower neck. The specimen consists of a shave biopsy measuring 40b8e1cb. Jar 0. Specimen C: Received is one formalin filled container labeled with the patient's name and designated right cheek. The specimen consists of a shave biopsy measuring 7m8a9rm. Jar 0. 0 12:52 PM [facility] DERMATOPATHOLOGY LABORATORY Microscopic Description Specimen [...] subtyping of the lesion. 0 12:52 PM [facility] DERMATOPATHOLOGY LABORATORY Disclaimer An external and internal positive and negative controls are appropriate for the histochemical, immunohistochemical and immunofluorescence stain(s) in this case (if any), except where stated explicitly. The performance characteristics of the stain(s) cited in this report were developed and its performance characteristic determined by the Dermatopathology Laboratory at [facility], directed by Dr. Sarahy Sauceda. These tests need not be, and therefore are not, approved by the [place] Food and Drug Administration. The tests are used for clinical purposes. Billing Codes Specimen Charges Stain Charges 10677 06286 63358 1 1 1 0 12:52 PM [facility] DERMATOPATHOLOGY LABORATORY Embedded Images 0 12:52 PM [facility] DERMATOPATHOLOGY LABORATORY Pathology/Cytology TISSUE SPECIMEN FROM SKIN / Unknown 09/08/2019 09/09/2019 2:02 PM BACKSHOE PERSON Miscellaneous samples (specimen) TISSUE SPECIMEN FROM SKIN / Unknown 09/08/2019 09/09/2019 2:02 PM BACKSHOE PERSON Miscellaneous samples (specimen) TISSUE SPECIMEN FROM SKIN / Unknown 09/08/2019 09/09/2019 2:02 PM BACKSHOE PERSON Ismael Herrera MD LAB - PATHOLOGY/CYTOLOGY ORD ERABLES Final Result DERMATOPATHOLOGY LABORATORY [facility] - Department of Dermatology [address] [place] [address], 5th Floor Lab [address] [phone] documented in this encounter Visit Diagnoses Not on filedocumented in this encounter Care Teams Body Sander Relationship Specialty Start Date End Date Prashant Ramirez MD [address] [facility] [address] [place] [address] PCP - General Family Medicine 12/09/17 [place] [address] [facility] [address] [place] [address] Orthopedic Surgery 12/09/17 documented as of this encounter
--- OUTSIDE RECORDS SUMMARY | 2025-02-14 10:01 | XMS_ITS | Clinical Summary ---
Author Organization [facility] Address [address] [place] [address] Care Team Providers Care Emc Storage Architect Name Role Phone Prashant Ramirez MD Primary Care Provider [phone] Allergies Active Allergy Reactions Criticality Noted Date [...] unit capsule 11/12/2017 Active multivitamin/fol ic acid/biotin (VRDK-UTHE-KSBRD , OB-PR-HFVAYN, ORAL) Take by mouth. Active melatonin 3 [...] INFLUENZA VACCINE (#1) 2025 05/13/[address] [place] [address] MEDICARE PART A AND B [facility] Care Teams Emc Storage Architect Relationship Specialty Start Date End Date Prashant Ramirez MD PCP - General Family Practice 12/10/17
--- OUTSIDE RECORDS SUMMARY | 2025-02-14 10:01 | XMS_ITS | Referral Summary ---
Author Organization [facility] Address [address] [place] [address] [place] [address] Care Team Providers Care Cardiac Rehabilitation Specialist Name Role Phone Prashant Ramirez MD Primary Care Prov ider Jabari Marquez MD, Riley Unavailable [phone] Allergies Active Allergy Reactions Criticality Noted Date [...] stage from 02/18/2017: pTis (DCIS), ER: Positive, OR: Positive, HER2: Not Assessed - Unsigned Clinical: [...] on file Legal Sex Female 10:04 AM SHAKER FLATWORK Gender Identity Not on file Sexual Orientation [...] of Treatment Not on file Insurance MEDICARE [employer] [place] [address] MEDICARE [employer] [place] Care Teams Cardiac Rehabilitation Specialist Relationship Specialty Start Date End Date Prashant Ramirez MD [address] [place] [address] PCP - General Family Medicine 12/23/17 Riley Barboza Jr., MD [address] [place] [address] Medical Oncologist/Print Line Feeder Medical Oncology 03/22/19
--- OUTSIDE RECORDS SUMMARY | 2025-02-14 10:01 | XMS_ITS | Encounter Summary ---
Author Organization [facility] Address [address] [facility] [facility] [place] [address] Care Team Providers Care Instrumentation And Control Technician Name Role Phone Michael Mullins MD Unavailable [phone] Prashant Ramirez MD Primary Care Provider + Encounter Details Date Type Department Care Team (Late st Contact Info) Description 12/17/2023 Lab Requisition [facility] - Derm[facility] Lab [address] [facility] [place] [phone] Ismael Herrera MD [address] [address] Social History Tobacco Use Types Packs/Day Years Used Date Smoking Tobacco: Never Smokeless Tobacco: Never Alcohol Use Standard Drinks/Week Comments No 0 (1 standard drink = 0.6 oz pur e alcohol) Comments Unknown Sex and Gender Information Value Date Recorded Sex Assigned at Not on file Legal Sex Female 12:11 PM FUNCTIONAL DIRECTOR Gender Identity Not on file Sexual Orientation [...] AM CDT) Case Report Dermatopathology Report Case: [id number] Authorizing Provider: Ismael Herrera MD Collected: 12/16/2023 03:33 AM Ordering Location: [facility] - Received: 12/17/2023 02:30 PM [...] determined by the Dermatopathology Laboratory at [facility], directed by Dr. Sarahy Sauceda. These tests need not be, and therefore are not, approved by the [place] Food and Drug Administration. The tests are used for clinical purposes. Billing Codes Specimen Charges Stain Charges 40223 70260 47212 1 1 1 4 4:49 PM CDT [...] ERABLES Edited Result - Final DERMATOPATHOLOGY LABORATORY [facility] - Department of Dermatology [facility] Medicine [address] [place] [address], [address]rd Floor [address] [phone] documented in this encounter Visit Diagnoses Not on filedocumented in this encounter Care Teams Instrumentation And Control Technician Relationship Specialty Start Date End Date Prashant Ramirez MD [address] [facility] 100 [place] [address] PCP - General Family Medicine 12/09/17 [place] [address] [facility] [address] [place] [address] Orthopedic Surgery 12/09/17 documented as of this encounter
--- OUTSIDE RECORDS SUMMARY | 2025-02-14 10:01 | XMS_ITS | Encounter Summary ---
Author Organization [facility] Address [address] [facility] [place] [address] Care Team Providers Care Certified Rehabilitation Counselor Name Role Phone Michael Mullins MD Unavailable [phone] Prashant Ramirez MD Primary Care Provider + Encounter Details Date Type Department Care Team (Late st Contact Info) Description 02/23/2020 Lab Requisition [facility] Care DermPath Lab [address] [facility], [place] [phone] Ismael Herrera MD [address] [place] [address] Social History Tobacco Use Types Packs/Day Years Used Date Smoking Tobacco: Never Smokeless Tobacco: Never Alcohol Use Standard Drinks/Week Comments No 0 (1 standard drink = 0.6 oz pur e alcohol) Comments Unknown Sex and Gender Information Value Date Recorded Sex Assigned at Not on file Legal Sex Female 12:11 PM OPERATIONS ARCHITECT Gender Identity Not on file Sexual Orientation [...] AM CDT) Case Report Dermatopathology Report Case: [id number] Authorizing Provider: Ismael Herrera MD Collected: 02/22/2020 12:00 AM Ordering Location: [facility] DermPath Lab Received: 02/23/2020 03:15 PM Pathologist: [...] A-C: R/O HAK, SCC. 0 3:57 PM [facility] DERMATOPATHOLOGY LABORATORY Gross Description Specimen A: Received is one formalin filled container labeled with the patient's name and designated ant vertex. The specimen consists of a shave biopsy measuring 7w1o0fj. Jar 0. Specimen B: Received is one formalin filled container labeled with the patient's name and designated mid vertex. The specimen consists of a shave biopsy measuring 3d7p9ej. Jar 0. Specimen C: Received is one formalin filled container labeled with the patient's name and designated post vertex. The specimen consists of a shave biopsy measuring 6f6q4aj, bisected. Jar 0. 0 3:57 PM [facility] DERMATOPATHOLOGY LABORATORY Microscopic Description Specimen [...] multiple deeper sections examined. 0 3:57 PM [facility] DERMATOPATHOLOGY LABORATORY Disclaimer An external and internal positive and negative controls are appropriate for the histochemical, immunohistochemical and immunofluorescence stain(s) in this case (if any), except where stated explicitly. The performance characteristics of the stain(s) cited in this report were developed and its performance characteristic determined by the Dermatopathology Laboratory at [facility], directed by Dr. Sarahy Sauceda. These tests need not be, and therefore are not, approved by the [place] Food and Drug Administration. The tests are used for clinical purposes. Billing Codes Specimen Charges Stain Charges 02545 10171 13550 1 1 1 0 3:57 PM CDT [...] PATHOLOGY/CYTOLOGY ORD ERABLES Final Result DERMATOPATHOLOGY LABORATORY [facility] - Department of Dermatology [facility]/[address] [phone] documented in this encounter Visit Diagnoses Not on filedocumented in this encounter Care Teams Certified Rehabilitation Counselor Relationship Specialty Start Date End Date Prashant Ramirez MD [address] [facility] 100 [place] [address] PCP - General Family Medicine 12/09/17 [place] [address] [facility] [address] [place] [address] Orthopedic Surgery 12/09/17 documented as of this encounter
--- OUTSIDE RECORDS SUMMARY | 2025-02-14 10:01 | XMS_ITS | Clinical Summary ---
Author Organization [facility] Address [address] [facility] [place] [address] Care Team Providers Care Residential Leasing Agent Name Role Phone Michael Mullins MD Unavailable [phone] Prashant Ramirez MD Primary Care Provider + Source Comments [facility],non-owned Affiliates and Associated Physician Practices is amultiple site organization consisting of ambulatory clinics and hospital sitesin [place], [place], [place] and [place]. This disclosure is being madepursuant to the Care Everywhere program and may not contain all information available regarding this patient. Last updated 18.[facility] Allergies Active Allergy Reactions Criticality Noted Date [...] once daily Active vitamin D, ergocalciferol, (DRISDOL) 72053 UNITS capsule Take 1 capsule by mouth [...] on file Legal Sex Female 12:11 PM TABLET REPAIR Gender Identity Not on file Sexual Orientation [...] this topic Medical Devices Implanted Type Area Blast Furnace Keeper Device Identifier Shelf Expiration Date Model / Serial / Lot Cmnt Bone Cblt 40gm Hvisc Strl Implanted:Qty: 1 on 02/16/2018 by Michael Mullins MD at [facility] Right: Knee [employer] 04/12/2019 600-15-000 / / [id number] Tray Tib 75mm Kn Cocr I Beam Implanted:Qty: 1 on 02/16/2018 by Michael Mullins MD at [facility] Right: Knee [employer] 10/19/2027 [id number] / / [id number] Cmpnt Fem Kn Rt Cr Cmnt Prm Vngrd Intlk 65mm Implanted:Qty: 1 on 02/16/2018 by Michael Mullins MD at [facility] Right: Knee [employer] 12/04/2027 [id number] / / [id number] Cmpnt Ptlr 28mm 1 Pg Wire Ascnt Arcm Kn Implanted:Qty: 1 on 02/16/2018 by Michael Mullins MD at [facility] Right: Knee [employer] 01/22/2023 [id number] / / [id number] Vngrd Arcm Kn Ant Stab Implanted:Qty: 1 on 02/16/2018 by Michael Mullins MD at [facility] Right: Knee [employer] 12/26/2022 [id number] / / [id number] Insurance MEDICARE [facility] Address: [address] [place] [address] MEDICARE [employer] Advance Directives * Full Code (Latest Code Status on File) Date Activated Date Inactivated Comments 02/16/2018 12:02 PM 02/18/2018 4:15 PM Care Teams Residential Leasing Agent Relationship Specialty Start Date End Date Prashant Ramirez MD [address] [facility] 100 [place] [address] PCP - General Family Medicine 12/09/17 [place] [address] [facility] [address] [place] [address] Orthopedic Surgery 12/09/17
[2025-02-14 10:02] VITALS: BP 128/94; PULSE 85; RESP 20; O2SAT 95
[2025-02-14 10:10] LABS: Alanine Aminotransferase 17 U/L (6-35); Albumin Level 3.9 g/dL (3.5-5.1); Alkaline Phosphatase 98 U/L (38-126); Anion Gap 7 mmol/L (4-12); Aspartate Amino Transferase 46 U/L (14-36); Bilirubin,Total 1.9 mg/dL (0.2-1.3); Blood Urea Nitrogen 12 mg/dL (7-17); Calcium 9.2 mg/dL (8.4-10.2); Carbon Dioxide 24 mmol/L (22-30); Chloride 110 mmol/L (98-107); Estimated Glomerular Filt Rate > 60; Glucose 96 mg/dL (65-110); Lipase 93 U/L (23-300); Potassium 3.9 mmol/L (3.4-5.0); Sodium 141 mmol/L (137-145); Total Protein 7.1 g/dL (6.3-8.2)
[2025-02-14 10:17] LABS: Troponin I 0.024 ng/mL (0.000-0.034)
[2025-02-14 11:45] VITALS: BP 136/78; PULSE 86; RESP 18; O2SAT 99
--- NOTE | 2025-02-14 11:55 | ED_ITS ---
HPI - Chest Pain General Chief Complaint: Chest Pain Stated Complaint: CP Time Seen by Provider: 02/14/25 09:26 Source: patient and family Mode of arrival: ambulatory Limitations: no limitations History of Present Illness HPI narrative: 79-year-old with a history of atrial fibrillation on apixaban, mild dementia was brought in from home by family with a complains of left-sided chest pain, mild shortness of breath this morning. Patient states that she woke up to use the restroom started having pain and shortness of breath. However by the time she got to the ER her pain has much improved. No previous history of CAD. He will doses Dr. Jerome the cyber intelligence analyst MD complaint: chest pain Onset (ago): hour(s) (2) Timing of current episode: now resolved Prior episodes: No Onset: during rest Pain location: left chest Pain radiation: none Severity: mild Quality: tightness Exacerbating factors: nothing Treatment prior to arrival: none Related Data Allergies Allergy/AdvReac Type Severity Reaction Status Date / Time adhesive Allergy Mild Rash AND Verified 02/14/25 09:45 ITCHING morphine Allergy Mild NAUSEA AND Verified 02/14/25 09:45 VOMITING rosuvastatin AdvReac Intermediate myalgia Verified 02/14/25 09:45 benzonatate AdvReac mouth Verified 02/14/25 09:45 tingling clarithromycin AdvReac emesis Verified 02/14/25 09:45 niacin (From Niaspan AdvReac unknown Verified 02/14/25 09:45 Extended-Release) Zqlntae-DDB-CgD Reductase AdvReac myalgias Verified 02/14/25 09:45 Inhibitor pravastatin AdvReac Intermediate jaw pain Uncoded 02/14/25 09:45 Review of Systems 2 Review of Systems: All systems reviewed & are unremarkable except as noted in HPI and below Constitutional: Constitutional: Reports no additional constitutional complaints Eyes: Eyes: Reports no additional eye complaints ENT: Reports system reviewed and no additional complaints, except as documented Cardiovascular: Cardiovascular: Reports as per HPI Respiratory: Respiratory: Reports no additional respiratory complaints Genitourinary: Genitourinary: Reports no additional female genitourinary complaints Musculoskeletal: Musculoskeletal: Reports no additional musculoskeletal complaints Integumentary/Breasts: Skin/Breast: Reports system reviewed and no additional complaints, except as docu Neurologic: Reports system reviewed and no additional complaints, except as documented PMFSH Past Medical History Medical History Complete tear of left rotator cuff GERD (gastroesophageal reflux disease) History of breast cancer 2006 left 2017. right DCIS HTN (hypertension) 2006 HX: breast cancer Pure hypercholesterolemia, unspecified Surgical History Surgical History Hx of total knee arthroplasty History of vaginal surgery 2011 Transvaginal urethral sling History of cholecystectomy History of partial hysterectomy S/P skin biopsy History of bilateral carpal tunnel release History of bilateral knee replacement Right, 2018 Left, 2008 H/O breast surgery 2007, left 2017, right, partial mastectomy Family History Family History Father Cancer Carcinoma of colon Colon polyp Sibling Hyperlipidemia Mother Dementia Other Breast cancer Social History Social History Smoking status: Never smoker Second hand tobacco smoke exposure: No Alcohol intake: never Substance use: never Substance use type: does not use Living arrangements: alone Occupation/Education: retired Gender identity (if verbalized by the patient): Female Sexual Orientation (if Verbalized by the Patient): Straight or Heterosexual Spiritual care concerns: No Agree to blood products: Yes Exam 2 Narrative: GENERAL: Well-appearing, well-nourished, and in no acute distress. HEAD: Normocephalic, atraumatic. EYES: PERRLA and EOMI. ENT: Nares clear, no rhinorrhea or epistaxis. Mucous membranes moist. NECK: Supple. CHEST: Clear to auscultation. No respiratory distress. HEART: Tachycardic No murmur heard. Normal peripheral pulses. ABDOMEN: Soft, nontender, nondistended, normal active bowel sounds. EXTREMITIES: Normal range of motion. No edema. SKIN: Warm, dry, no rash. NEURO: No focal deficits. Alert and oriented x3. PSYCH: Normal mood and affect. Course Course Emergency Course: Patient did receive Cardizem 10 mg IV upon arrival and she had a heart rate of 140. She remained in AFib with a heart rate of 88. She started feeling better. Informed her about the lab work and chest x-ray findings. I discussed with Dr. Jerome will follow-up in the office recommended to increase the dosage of metoprolol to 25 mg twice a day. Vital Signs Vital signs: Vital Signs Temperature 36.4 C 02/14/25 09:17 Pulse Rate 106 H 02/14/25 09:17 Respiratory Rate 20 02/14/25 09:17 Blood Pressure 127/82 02/14/25 09:17 Pulse Oximetry 99 02/14/25 09:17 Oxygen Delivery Room Air 02/14/25 09:17 Temperature 36.4 C 02/14/25 09:17 Pulse Rate 85 02/14/25 10:02 Respiratory Rate 20 02/14/25 10:02 Blood Pressure 128/94 H 02/14/25 10:02 Pulse Oximetry 95 02/14/25 10:02 Oxygen Delivery Room Air 02/14/25 09:25 MDM - Chest Pain Lab Data 02/14/25 09:34 02/14/25 09:34 Labs: Lab Results 02/14/25 Range/Units 09:34 WBC 4.5 (4.5-10.0) K/mm3 RBC 3.81 L (4.2-5.4) M/mm3 Hgb 11.3 L (12.0-15.0) g/dL Hct 37.0 (37.0-47.0) % MCV 97.1 (80-100) fl MCH 29.7 (26-34) pg MCHC 30.5 L (32-36) g/dl RDW 16.3 H (11.5-14.5) % Plt Count 110 L (150-375) k/mm3 MPV 10.5 H (7.4-10.4) fl Immature Gran % (Auto) 0.2 (0-0.5) % Neut % (Auto) 47.1 (45.5-73.1) % Lymph % (Auto) 42.8 (18.3-44.2) % Blackford % (Auto) 7.7 (2.6-8.5) % Eos % (Auto) 1.5 (0-4.4) % Baso % (Auto) 0.7 (0.2-1.2) % Lymph # (Auto) 1.94 (0.9-3.2) K/mm3 Blackford # (Auto) 0.4 (0.1-0.6) K/mm3 Eos # (Auto) 0.1 (0-0.3) K/mm3 Baso # (Auto) 0.0 (0.0-0.1) K/mm3 Abs Immat Gran (auto) 0.01 (0.00-0.031) K/mm3 Absolute Neuts (auto) 2.1 (1.3-6.7) K/mm3 Absolute Nucleated RBC 0.000 (0.0-0.012) K/mm3 Nucleated RBC % 0.0 (0.0-0.2) % % Immature Plt Fraction 4.6 (0.9-11.2) % PT 21.5 H (11.1-14.7) Seconds INR 1.9 APTT 41.5 H (22.3-36.8) Seconds Sodium 141 (137-145) mmol/L Potassium 3.9 (3.4-5.0) mmol/L Chloride 110 H (98-107) mmol/L Carbon Dioxide 24 (22-30) mmol/L Anion Gap 7 (4-12) mmol/L BUN 12 (7-17) mg/dL Creatinine 0.83 (0.7-1.0) mg/dL Estim Creat Clear Calc Not Reportable Estimated GFR > 60 (59 - ) Glucose 96 (65-110) mg/dL Calcium 9.2 (8.4-10.2) mg/dL Total Bilirubin 1.9 H (0.2-1.3) mg/dL AST 46 H (14-36) U/L ALT 17 (6-35) U/L Alkaline Phosphatase 98 (38-126) U/L Troponin I 0.024 (0.000-0.034) ng/mL Total Protein 7.1 (6.3-8.2) g/dL Albumin 3.9 (3.5-5.1) g/dL Lipase 93 (23-300) U/L Discharge Plan Discharge Clinical Impression: Atrial fibrillation with RVR Chest pain Qualifiers: Chest pain type: unspecified Qualified Code(s): R07.9 - Chest pain, unspecified Patient Disposition: Home Condition: Stable Instructions: A-fib (Atrial Fibrillation) (ED), Chest Pain (ED) Additional Instructions: Continue home medication, take metoprolol 25 mg twice a day. Follow with your cyber intelligence analyst in the next few days. Patient Language: Cymro Prescriptions: No Action losartan 100 mg tablet 50 mg PO DAILY Qty: 90 3RF metoprolol succinate 25 mg tablet extended release 24 hr 25 mg PO DAILY Qty: 30 5RF Eliquis 5 mg tablet 5 mg PO BID Qty: 60 5RF (DME) blood-glucose meter [Accu-Chek Guide Glucose Meter] Misc See Rx Instructions .Route Qty: 1 0RF Rx Instructions: As directed (DME) lancets [Accu-Chek Softclix Lancets] Misc See Rx Instructions .Route Qty: 200 1RF Rx Instructions: As directed (DME) Accu-Chek Guide test strips Strip See Rx Instructions .Route Qty: 100 1RF Rx Instructions: two times daily ezetimibe 10 mg tablet 10 mg PO DAILY Qty: 90 3RF omeprazole 20 mg capsule,delayed release(DR/EC) 20 mg PO DAILY Qty: 90 2RF potassium chloride 10 mEq capsule, extended release See Rx Instructions .ROUTE .COMPLEX Qty: 90 2RF Dose Instruction: TAKE 1 CAPSULE BY MOUTH DAILY Rx Instructions: TAKE 1 CAPSULE BY MOUTH DAILY donepezil 5 mg tablet See Rx Instructions .ROUTE .COMPLEX Qty: 90 0RF Dose Instruction: TAKE 1 TABLET BY MOUTH EVERY DAY AT BEDTIME Rx Instructions: TAKE 1 TABLET BY MOUTH EVERY DAY AT BEDTIME Follow-up/Referrals: Prashant Ramirez MD [Primary Care Provider] - Time of Disposition: 12:02
[2025-02-14 12:15] VITALS: BP 144/81; PULSE 87; RESP 16; O2SAT 98
== END 2025-02-14 12:15 | disposition home or self-care (01) ==
PROVIDERS: Emergency Provider Family Medicine; PCP Family Medicine Adolescent Medicine
DX: I48.20 Chronic atrial fibrillation, unspecified (principal); R07.9 Chest pain, unspecified; K21.9 Gastro-esophageal reflux disease without esophagitis; I10 Essential (primary) hypertension; E78.5 Hyperlipidemia, unspecified; Z85.3 Personal history of malignant neoplasm of breast
CPT/HCPCS: 36415; 71046; 80053; 83690; 84484; 85025; 85055; 85610; 85730; 93005; 96374; 99284; A9270; J1163

== ENCOUNTER 2025-04-13 14:25 | Outpatient (CLI) | payer MEDICARE, BC, SELFPAY ==
--- OUTSIDE RECORDS SUMMARY | 2008-12-02 06:00 | XMS_ITS | Continuity of Care Document ---
Author Organization [facility] Address [address] [facility] [address] [place] [address] Phone Care Team Providers Care Casino Games Dealer Name Role Phone Dorado OD, Travis Unavailable Unavailable Procedures Procedure Date Eye Exam & Treatment Refraction Progressive Lens, Polycarb Frames Deluxe Tax - Medical Advance Directives Directive Yes / No Effective Date File Name No Information Encounters Encounter Description Practice Location Reason(s) For Visit Diagnoses Date Provider Providers Copied on Encounter [facility], [address] [place] [address] [address], [place], [place], [id number], tel:[phone] SEC [facility] No Information 2-200 9 Dorado OD Travis. [address] , [address], [place], [address], [place]. tel:[phone] [facility], [address] [place] [address] [address], [place], [place], [id number], [place] tel:[phone] SEC [facility] No Information 7 7 [facility] . [address] [facility], [address], [place], [place], [id number], . tel:[phone] Referring Provider: Travis Dorado OD A, [address], [place], [address]. tel:[phone] sulting Provider: Marleny Rodriguez, [address] [place], [address]. tel:[phone] Family History Family Member Type Diagnosis Age At Onset No Information Payers Payer name Insurance type Covered democrat ID Authoriza tishavon(s) BCBS [place] FEP BL [id number] Social History Type Description Quantity Date Captured [...]
--- OUTSIDE RECORDS SUMMARY | 2025-04-13 14:32 | XMS_ITS | Encounter Summary ---
Author Organization [facility] Address [address] [place] [address] Care Team Providers Care Local Government Legislator Name Role Phone Michael Mullins MD Unavailable [phone] Prashant Ramirez MD Primary Care Provider + Encounter Details Date Type Department Care Team (Late st Contact Info) Description 09/09/2019 Lab Requisition [facility] Care DermPath Lab [address] [facility], [place] [id number] Ismael Herrera MD [address] [place] [address] Social History Tobacco Use Types Packs/Day Years Used Date Smoking Tobacco: Never Smokeless Tobacco: Never Alcohol Use Standard Drinks/Week Comments No 0 (1 standard drink = 0.6 oz pur e alcohol) Comments Unknown Sex and Gender Information Value Date Recorded Sex Assigned at Not on file Legal Sex Female 12:11 PM CLIENT SUPPORT PROFESSIONAL Gender Identity Not on file Sexual Orientation [...] Comments DERMATOPATHOLOGY Routine 09/08/2019 12:0 0 AM CLIENT SUPPORT PROFESSIONAL documented in this encounter Results * DERMATOPATHOLOGY (09/08/2019 12:00 AM CLIENT SUPPORT PROFESSIONAL) Case Report Dermatopathology Report Case: [id number] Authorizing Provider: Isamel Herrera MD Collected: 09/08/2019 12:00 AM Ordering Location: [facility] DermPath Lab Received: 09/09/2019 02:02 PM Pathologist: Jah Sauceda MD Specimens: A) - Skin, vertex scalp B) - Skin, left paraspinal lower neck C) - Skin, right cheek 0 12:52 PM [facility] DERMATOPATHOLOGY LABORATORY Final Diagnosis Specimen A. SKIN, vertex scalp: HYPERPLASTIC (HYPERTROPHIC) ACTINIC KERATOSIS (L57.0) HEALING SKIN CHANGES (L90.5) Specimen B. SKIN, left paraspinal lower neck: LICHEN PLANUS-LIKE KERATOSIS (BENIGN LICHENOID KERATOSIS) (L82.1) Specimen C. SKIN, right cheek: BASAL CELL CARCINOMA (C44.319) (see microscopic description and comment) 0 12:52 PM CLIENT SUPPORT PROFESSIONAL DERMATOPATHOLOGY LABORATORY at [address] CLIENT SUPPORT PROFESSIONAL Clinical History A: R/O SCC. B: R/O SCCIS, BCC, LPLK. 0 12:52 PM CLIENT SUPPORT PROFESSIONAL DERMATOPATHOLOGY LABORATORY Gross Description Specimen A: Received is one formalin filled container labeled with the patient's name and designated vertex scalp. The specimen consists of a shave biopsy measuring [id number]. Jar 0. Specimen B: Received is one formalin filled container labeled with the patient's name and designated left paraspinal lower neck. The specimen consists of a shave biopsy measuring [id number]. Jar 0. Specimen C: Received is one formalin filled container labeled with the patient's name and designated right cheek. The specimen consists of a shave biopsy measuring 1v2x8ex. Jar 0. 0 12:52 PM [facility] DERMATOPATHOLOGY LABORATORY Microscopic Description [...] subtyping of the lesion. 0 12:52 PM [facility] DERMATOPATHOLOGY LABORATORY Disclaimer An [...] purposes. Billing Codes Specimen Charges Stain Charges 76570 [id number] 1 1 1 0 12:52 PM [facility] DERMATOPATHOLOGY LABORATORY Embedded Images 0 12:52 PM [facility] DERMATOPATHOLOGY LABORATORY Pathology/Cytology TISSUE SPECIMEN FROM SKIN / Unknown 09/08/2019 09/09/2019 2:02 PM CLIENT SUPPORT PROFESSIONAL Miscellaneous samples (specimen) TISSUE SPECIMEN FROM SKIN / Unknown 09/08/2019 09/09/2019 2:02 PM CLIENT SUPPORT PROFESSIONAL Miscellaneous samples (specimen) TISSUE SPECIMEN FROM SKIN / Unknown 09/08/2019 09/09/2019 2:02 PM CLIENT SUPPORT PROFESSIONAL Ismael Herrera MD LAB - PATHOLOGY/CYTOLOGY ORD ERABLES Final Result DERMATOPATHOLOGY LABORATORY [facility] - Department of Dermatology [address] [place] [address], 5th Floor Lab [address] [phone] documented in this encounter Visit Diagnoses Not on filedocumented in this encounter Care Teams Local Government Legislator Relationship Specialty Start Date End Date Prashant Ramirez MD [address] [facility] [address] [place] [address] PCP - General Family Medicine 12/09/17 [place] [id number] [facility] [address] [place] [address] Orthopedic Surgery 12/09/17 documented as of this encounter
--- OUTSIDE RECORDS SUMMARY | 2025-04-13 14:32 | XMS_ITS | Encounter Summary ---
Author Organization [facility] Address [address] [place] [address] Care Team Providers Care Hide Selector Name Role Phone Michael Mullins MD Unavailable [phone] Prashant Ramirez MD Primary Care Provider + Encounter Details Date Type Department Care Team (Late st Contact Info) Description 02/23/2020 Lab Requisition 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 0 3:57 PM [facility] DERMATOPATHOLOGY LABORATORY Gross Description Specimen A: Received is one formalin filled container labeled with the patient's name and designated ant vertex. The specimen consists of a shave biopsy measuring [id number]. Jar 0. Specimen B: Received is one formalin filled container labeled with the patient's name and designated mid vertex. The specimen consists of a shave biopsy measuring 1m2a5xy. Jar 0. Specimen C: Received is one formalin filled container labeled with the patient's name and designated post vertex. The specimen consists of a shave biopsy measuring 7z0q6mk, bisected. Jar 0. 0 3:57 PM [facility] DERMATOPATHOLOGY LABORATORY Microscopic Description Specimen [...] deeper sections examined. 0 3:57 PM [facility] DERMATOPATHOLOGY LABORATORY Disclaimer An external and internal positive and negative controls are appropriate for the histochemical, immunohistochemical and immunofluorescence stain(s) in this case (if any), except where stated explicitly. The performance characteristics of the stain(s) cited in this report were developed and its performance characteristic determined by the Dermatopathology Laboratory at [facility], directed by Dr. Sarahy Sauceda. These tests need not be, and therefore are not, approved by the [place] Food and Drug Administration. The tests are used for clinical purposes. Billing Codes Specimen Charges Stain Charges [id number] [id number] 1 1 1 0 3:57 PM CDT [...] PATHOLOGY/CYTOLOGY ORD ERABLES Final Result DERMATOPATHOLOGY LABORATORY [facility] - Department of Dermatology [facility]/[address] [phone] documented in this encounter Visit Diagnoses Not on filedocumented in this encounter Care Teams Hide Selector Relationship Specialty Start Date End Date Prashant Ramirez MD [address] [facility] [address] [place] [address] PCP - General Family Medicine 12/09/17 [place] [address] [facility] [address] [place] [address] Orthopedic Surgery 12/09/17 documented as of this encounter
--- OUTSIDE RECORDS SUMMARY | 2025-04-13 14:32 | XMS_ITS | Clinical Summary ---
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
--- OUTSIDE RECORDS SUMMARY | 2025-04-13 14:32 | XMS_ITS | Encounter Summary ---
Author Organization [facility] Address [address] [facility] [address] Care Team Providers Care Travelift Operator Name Role Phone Michael Mullins MD Unavailable [phone] Prashant Ramirez MD Primary Care Provider + Encounter Details Date Type Department Care Team (Late st Contact Info) Description 12/17/2023 Lab Requisition [facility] - DermPath Lab [address] [facility], [place] [phone] Ismael Herrera MD [address] [place] [address] Social History Tobacco Use Types Packs/Day Years Used Date Smoking Tobacco: Never Smokeless Tobacco: Never Alcohol Use Standard Drinks/Week Comments No 0 (1 standard drink = 0.6 oz pur e alcohol) Comments Unknown Sex and Gender Information Value Date Recorded Sex Assigned at Not on file Legal 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 Billing Codes Specimen Charges Stain Charges [id number] 1 1 1 4 4:49 PM CDT [...] ERABLES Edited Result - Final DERMATOPATHOLOGY LABORATORY [facility] - Department of Dermatology [facility] Medicine [address] [place] [address], [address]rd Floor [address] [phone] documented in this encounter Visit Diagnoses Not on filedocumented in this encounter Care Teams Travelift Operator Relationship Specialty Start Date End Date Prashant Ramirez MD [address] [facility] [address] [place] [address] PCP - General Family Medicine 12/09/17 [place] [id number] [facility] [address] [place] [address] Orthopedic Surgery 12/09/17 documented as of this encounter
--- OUTSIDE RECORDS SUMMARY | 2025-04-13 14:32 | XMS_ITS | Clinical Summary ---
Author Organization [facility] [employer] Address [address] [place] [address] Care Team Providers Care Digital Tech Name Role Phone Michael Mullins MD Unavailable [phone] Prashant Ramirez MD Primary Care Provider + Source Comments [facility],non-owned Affiliates and Associated Physician Practices is amultiple site organization consisting of ambulatory clinics and hospital sitesin [place], [place], [place] and [place]. This disclosure is being madepursuant to the Care Everywhere program and may not contain all information available regarding this patient. 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 Gender Identity Not on file Sexual Orientation [...] yrs (1 - 1-dose 75+ series) 2020 DEPRESSION SCREENING 07/14/2024 COVID-19 VACCINE (1 - 2023- season) 2025 INFLUENZA VACCINE (#1) 2025 9, 05/13/2018, 04/09/2017, [...] this topic Medical Devices Implanted Type Area Physician Anesthesiologist Device Identifier Shelf Expiration Date Model / Serial / Lot Cmnt Bone Cblt 40gm Hvisc Strl Implanted:Qty: 1 on 02/16/2018 by Michael Mullins MD at [facility] Right: Knee [employer] 04/12/2019 [id number] / / [id number] Tray Tib 75mm Kn Cocr I Beam Implanted:Qty: 1 on 02/16/2018 by Michael Mullins MD at [facility] Right: Knee [employer] 10/19/2027 [id number] / / [id number] Cmpnt Fem Kn Rt Cr Cmnt Prm Vngrd Intlk 65mm Implanted:Qty: 1 on 02/16/2018 by Michael Mullins MD at [facility] Right: Knee [employer] 12/04/2027 [id number] / / [id number] Cmpnt Ptlr 28mm 1 Pg Wire Ascnt Arcm Kn Implanted:Qty: 1 on 02/16/2018 by Michael Mullins MD at [facility] Right: Knee [employer] 01/22/2023 [id number] / / [id number] Brng [id number] Vngrd Arcm Kn Ant Stab Implanted:Qty: 1 on 02/16/2018 by Michael Mullins MD at [facility] Right: Knee [employer] 12/26/2022 [id number] / / [id number] Insurance MEDICARE [facility] MEDICARE ANTHEM Advance Directives * Full Code (Latest Code Status on File) Date Activated Date Inactivated Comments 02/16/2018 12:02 PM 02/18/2018 4:15 PM Care Teams Digital Tech Relationship Specialty Start Date End Date Prashant Ramirez MD [address] [facility] [address] [place] [address] PCP - General Family Medicine 12/09/17 [place] [id number] [facility] [address] [place] [address] Orthopedic Surgery 12/09/17
--- OUTSIDE RECORDS SUMMARY | 2025-04-13 14:32 | XMS_ITS | Clinical Summary ---
Author Organization [facility] Address [address] [place] [address] Care Team Providers Care Clinical Nursing Instructor Name Role Phone Prashant Ramirez MD Primary Care Provider [phone] Allergies Active Allergy Reactions Criticality Noted Date [...] unit capsule 11/12/2017 Active multivitamin/fol ic acid/biotin ([id number]-[id number] , [id number], ORAL) Take by mouth. Active melatonin 3 [...] INFLUENZA VACCINE (#1) 2025 05/13/[address] [place] [address] MEDICARE PART A AND B [facility] Care Teams Clinical Nursing Instructor Relationship Specialty Start Date End Date Prashant Ramirez MD PCP - General Family Practice 12/10/17
[2025-04-13 15:33] LABS: Anion Gap 8 mmol/L (4-12); Blood Urea Nitrogen 15 mg/dL (7-17); Calcium 8.8 mg/dL (8.4-10.2); Carbon Dioxide 27 mmol/L (22-30); Chloride 106 mmol/L (98-107); Estimated Glomerular Filt Rate > 60; Glucose 109 mg/dL (65-110); Magnesium 1.7 mg/dL (1.6-2.3); Potassium 3.8 mmol/L (3.4-5.0); Sodium 141 mmol/L (137-145)
== END 2025-04-13 14:26 | disposition home or self-care (01) ==
LOC: ANHLAB 14:26
PROVIDERS: PCP Family Medicine Adolescent Medicine; Visit Provider Internal Medicine Cardiovascular Disease
DX: R60.0 Localized edema (principal)
CPT/HCPCS: 36415; 80048; 83735

== ENCOUNTER 2025-05-03 15:57 | Outpatient (CLI) | payer MEDICARE, BC, SELFPAY ==
--- OUTSIDE RECORDS SUMMARY | 2008-12-02 06:00 | XMS_ITS | Continuity of Care Document ---
[facility] Organization [facility] Address [address] [place] [address] Phone Care Team Providers Care Design Center Consultant Name Role Phone Dorado OD, Travis Unavailable Unavailable Procedures Procedure Date Eye Exam & Treatment Refraction Progressive Lens, Polycarb Frames Deluxe Tax - Medical Advance Directives Directive Yes / No Effective Date File Name No Information Encounters Encounter Description Practice Location Reason(s) For Visit Diagnoses Date Provider Providers Copied on Encounter [facility], [address] [place] [address] [address], [place], [place], [id number], tel:[phone] SEC [facility] No Information 2-200 9 Dorado OD Travis. [address] [facility] [address] , [address], [place], [address], [place]. tel:[phone] [facility], [address] [place] [address] [address], [place], [place], [id number], [place] tel:[phone] SEC [facility] No Information 7 7 [facility] . [address] [facility], [address], [place], [place], [id number], . tel:[phone] Referring Provider: Travis Dorado OD A, [address] [facility] [address] [facility] [address], [place], [address]. tel:[phone] sulting Provider: Marleny Rodriguez, [address] [place], [address]. tel:[phone] Family History Family Member Type Diagnosis Age At Onset No Information Payers Payer name Insurance type Covered republican ID Authoriza tishavon(s) [place] F[place] BL [id number] Social History Type Description Quantity Date Captured Comments Sex Female Smoking Status No Information Chief Complaint And Reason For Visit No Information Reason For Referral Reason For Referral No Information History Of Present Illness Encounter Date Complaint History Of Prese nt Illness No Information Functional Status Date Functional Assessmen t No Information Instructions Date Instruction Additional Infor mation No Information Assessments Type Assessment Date No Information Patient Care Teams Name Effective Dates (start - stop) Status Members No Information
[2025-05-03 16:50] LABS: Hematocrit 33.8 % (37.0-47.0); Hemoglobin 10.4 g/dL (12.0-15.0); Immature Granulocyte Percent A 0.2 % (0-0.5); Lymphocytes Absolute Auto 1.79 K/mm3 (0.9-3.2); Mean Corpuscular HGB Conc 30.8 g/dl (32-36); Mean Corpuscular Hemoglobin 29.8 pg (26-34); Mean Corpuscular Volume 96.8 fl (80-100); Nucleated Red Blood Cells Absolute Auto 0.000 K/mm3 (0.0-0.012); Nucleated Red Blood Cells Perc 0.0 % (0.0-0.2); Platelet Count Result 118 k/mm3 (150-375); Red Blood Count 3.49 M/mm3 (4.2-5.4); White Blood Count 4.5 K/mm3 (4.5-10.0)
[2025-05-03 16:58] LABS: Alanine Aminotransferase 14 U/L (6-35); Albumin Level 3.8 g/dL (3.5-5.1); Alkaline Phosphatase 87 U/L (38-126); Anion Gap 7 mmol/L (4-12); Aspartate Amino Transferase 37 U/L (14-36); Bilirubin,Total 1.6 mg/dL (0.2-1.3); Blood Urea Nitrogen 15 mg/dL (7-17); Calcium 8.8 mg/dL (8.4-10.2); Carbon Dioxide 27 mmol/L (22-30); Chloride 106 mmol/L (98-107); Cholesterol 165 mg/dL (0-200); Estimated Glomerular Filt Rate > 60; Glucose 128 mg/dL (65-110); HDL Direct 73 mg/dL; Potassium 3.5 mmol/L (3.4-5.0); Sodium 140 mmol/L (137-145); Total Protein 7.0 g/dL (6.3-8.2); Triglycerides 57 mg/dL (<150)
[2025-05-03 17:33] LABS: Thyroid Stimulating Hormone 2.680 uIU/mL (0.465-4.680)
[2025-05-03 17:50] LABS: MALB Creatinine Ratio 47.5 mg/g (0-30)
[2025-05-03 17:53] LABS: Vitamin B12 832.0 pg/mL (239-931)
[2025-05-03 18:23] LABS: Free T3 3.51 pg/mL (2.45-5.93)
[2025-05-03 18:31] LABS: Iron 70 ug/dL (37-170)
[2025-05-03 18:40] LABS: Percent Iron Saturation 15 % (20-50)
[2025-05-03 18:58] LABS: Hemoglobin A1C 4.8 % (<5.7)
[2025-05-03 19:08] LABS: Ferritin 15.80 ng/mL (11.1-264)
[2025-05-03 19:37] LABS: Free T4 Free Thyroxine 1.07 ng/dL (0.78-2.19)
--- OUTSIDE RECORDS SUMMARY | 2025-05-03 19:40 | XMS_ITS | Encounter Summary ---
Author Organization [facility] Address [address] [place] [address] Care Team Providers Care Corporate Consultant Name Role Phone Michael Mullins MD Unavailable [phone] Prashant Ramirez MD Primary Care Provider + Encounter Details Date Type Department Care Team (Late st Contact Info) Description 09/09/2019 Lab Requisition [facility] Care DermPath Lab [address] [facility], [place] [id number] Ismael Herrera MD [address] [place] [address] Social History Tobacco Use Types Packs/Day Years Used Date Smoking Tobacco: Never Smokeless Tobacco: Never Alcohol Use Standard Drinks/Week Comments No 0 (1 standard drink = 0.6 oz pur e alcohol) Comments Unknown Sex and Gender Information Value Date Recorded Sex Assigned at Not on file Legal Sex Female 12:11 PM PEDIATRICIAN ACTIVE PRACTICE Gender Identity Not on file Sexual Orientation [...] Comments DERMATOPATHOLOGY Routine 09/08/2019 12:0 0 AM PEDIATRICIAN ACTIVE PRACTICE documented in this encounter Results * DERMATOPATHOLOGY (09/08/2019 12:00 AM PEDIATRICIAN ACTIVE PRACTICE) Case Report Dermatopathology Report Case: [id number] Authorizing Provider: Ismael Herrera MD Collected: 09/08/2019 12:00 AM Ordering Location: [facility] DermPath Lab Received: 09/09/2019 02:02 PM Pathologist: Jah Sauceda MD Specimens: A) - Skin, vertex scalp B) - Skin, left paraspinal lower neck C) - Skin, right cheek 0 12:52 PM [facility] DERMATOPATHOLOGY LABORATORY Final Diagnosis Specimen A. SKIN, vertex scalp: HYPERPLASTIC (HYPERTROPHIC) ACTINIC KERATOSIS (L57.0) HEALING SKIN CHANGES (L90.5) Specimen B. SKIN, left paraspinal lower neck: LICHEN PLANUS-LIKE KERATOSIS (BENIGN LICHENOID KERATOSIS) (L82.1) Specimen C. SKIN, right cheek: BASAL CELL CARCINOMA (C44.319) (see microscopic description and comment) 0 12:52 PM PEDIATRICIAN ACTIVE PRACTICE DERMATOPATHOLOGY LABORATORY at 1252 PEDIATRICIAN ACTIVE PRACTICE Clinical History A: R/O SCC. B: R/O SCCIS, BCC, LPLK. 0 12:52 PM PEDIATRICIAN ACTIVE PRACTICE DERMATOPATHOLOGY LABORATORY Gross Description Specimen A: Received is one formalin filled container labeled with the patient's name and designated vertex scalp. The specimen consists of a shave biopsy measuring [id number]. Jar 0. Specimen B: Received is one formalin filled container labeled with the patient's name and designated left paraspinal lower neck. The specimen consists of a shave biopsy measuring 78a2n7bj. Jar 0. Specimen C: Received is one formalin filled container labeled with the patient's name and designated right cheek. The specimen consists of a shave biopsy measuring 0o6x1pj. Jar 0. 0 12:52 PM [facility] DERMATOPATHOLOGY LABORATORY Microscopic Description Specimen [...] subtyping of the lesion. 0 12:52 PM [facility] DERMATOPATHOLOGY LABORATORY Disclaimer An external and internal positive and negative controls are appropriate for the histochemical, immunohistochemical and immunofluorescence stain(s) in this case (if any), except where stated explicitly. The performance characteristics of the stain(s) cited in this report were developed and its performance characteristic determined by the Dermatopathology Laboratory at [facility], directed by Dr. Sarahy Sauceda. These tests need not be, and therefore are not, approved by the [place] Food and Drug Administration. The tests are used for clinical purposes. Billing Codes Specimen Charges Stain Charges 49978 20533 94356 1 1 1 0 12:52 PM [facility] DERMATOPATHOLOGY LABORATORY Embedded Images 0 12:52 PM [facility] DERMATOPATHOLOGY LABORATORY Pathology/Cytology TISSUE SPECIMEN FROM SKIN / Unknown 09/08/2019 09/09/2019 2:02 PM PEDIATRICIAN ACTIVE PRACTICE Miscellaneous samples (specimen) TISSUE SPECIMEN FROM SKIN / Unknown 09/08/2019 09/09/2019 2:02 PM PEDIATRICIAN ACTIVE PRACTICE Miscellaneous samples (specimen) TISSUE SPECIMEN FROM SKIN / Unknown 09/08/2019 09/09/2019 2:02 PM PEDIATRICIAN ACTIVE PRACTICE Ismael Herrera MD LAB - PATHOLOGY/CYTOLOGY ORD ERABLES Final Result DERMATOPATHOLOGY LABORATORY [facility] - Department of Dermatology [address] [place] [address], 5th Floor Lab [address] [phone] documented in this encounter Visit Diagnoses Not on filedocumented in this encounter Care Teams Corporate Consultant Relationship Specialty Start Date End Date Prashant Ramirez MD [address] [facility] [address] [place] [address] PCP - General Family Medicine 12/09/17 [place] [address] [facility] [address] [place] [address] Orthopedic Surgery 12/09/17 documented as of this encounter
--- OUTSIDE RECORDS SUMMARY | 2025-05-03 19:40 | XMS_ITS | Patient Health Record ---
Author Organization [facility] Address [address] [place], [place] [id number] Care Team Providers Care Seasonal Warehouse Associate Name Role Phone BRITTANI Delcid Unavailable Prashant Ramirez Unavailable Unavailable Reason For Referral No Information Medications Medication SIG (Take, Route, Frequency, Duration) Notes Start Date End Date Status hydrochlorothiazide 12.5 MG / losartan potassium 50 MG Oral Tablet ORAL hydrochlorothiazide 12.5 MG / losartan potassium 50 MG Oral TabletOriginal Medicationhydrochlorothiazide 12.5 MG / losartan potassium 50 MG Oral Tablet *Reorder from [employer] for eRx and Interaction Alerts* Active ezetimibe 10 MG Oral Tablet [Zetia] ORAL ezetimibe 10 MG Oral Tablet [Zetia]Original Medicationezetimibe 10 MG Oral Tablet [Zetia] *Reorder from [employer] for eRx and Interaction Alerts* Active esomeprazole 40 MG Delayed Release Oral Capsule [Nexium] ORAL esomeprazole 40 MG Delayed Release Oral Capsule [Nexium]Original Medicationesomeprazole 40 MG Delayed Release Oral Capsule [Nexium] *Reorder from [employer] for eRx and Interaction Alerts* Active dicyclomine hydrochloride 20 MG Oral Tablet ORAL dicyclomine hydrochloride 20 MG Oral TabletOriginal Medicationdicyclomine hydrochloride 20 MG Oral Tablet *Reorder from [employer] for eRx and Interaction Alerts* Active hydrochlorothiazide 50 MG / metoprolol tartrate 100 MG Oral Tablet ORAL hydrochlorothiazide 50 MG / metoprolol tartrate 100 MG Oral TabletOriginal Medicationhydrochlorothiazide 50 MG / metoprolol tartrate 100 MG Oral Tablet *Reorder from [employer] for eRx and Interaction Alerts* 012 Active cholecalciferol 0.025 MG Chewable Tablet ORAL cholecalciferol 0.025 MG Chewable TabletOriginal Medicationcholecalciferol 0.025 MG Chewable Tablet *Reorder from [employer] for eRx and Interaction Alerts* 012 Active Plan Of Treatment No Information Insurance Providers Payer Name Payer Address Payer Phone Subscriber Number Group Number Insured Name Patient Relationship to Insured Coverage Start Date Coverage End Date Medicare Part B [place] [address] [facility] [place] [address] [id number] MAKSIM PROCTOR Self - patient is the insured [facility] ATTN CLAIMS [address] [place] [address] [id number] MAKSIM PROCTOR Self - patient is the insured [facility] [address] [address] [place], [place] [id number] MAKSIM PROCTOR Self - patient is the insured
--- OUTSIDE RECORDS SUMMARY | 2025-05-03 19:40 | XMS_ITS | Clinical Summary ---
Author Organization [facility] Address [address] [place] [address] Care Team Providers Care Rail Walker Name Role Phone Prashant Ramirez MD Primary Care Provider [phone] Allergies Active Allergy Reactions Criticality Noted Date [...] unit capsule 11/12/2017 Active multivitamin/fol ic acid/biotin ([id number]-[id number] , WL-TL-[id number], ORAL) Take by mouth. Active melatonin 3 [...] INFLUENZA VACCINE (#1) 2025 05/13/[address] [place] [address] [address] A AND B [facility] Care Teams Rail Walker Relationship Specialty Start Date End Date Prashant Ramirez MD PCP - General Family Practice 12/10/17
--- OUTSIDE RECORDS SUMMARY | 2025-05-03 19:40 | XMS_ITS | Encounter Summary ---
Author Organization [facility] Address [address] [place] [address] Care Team Providers Care Ornamental Ironworker Helper Name Role Phone Michael Mullins MD Unavailable [phone] Prashant Ramirez MD Primary Care Provider + Encounter Details Date Type Department Care Team (Late st Contact Info) Description 12/17/2023 Lab Requisition [facility] - DermPath Lab [address] [facility], [place] [phone] Ismael Herrera MD [address] [place] [address] Social History Tobacco Use Types Packs/Day Years Used Date Smoking Tobacco: Never Smokeless Tobacco: Never Alcohol Use Standard Drinks/Week Comments No 0 (1 standard drink = 0.6 oz pur e alcohol) Comments Unknown Sex and Gender Information Value Date Recorded Sex Assigned at Not on file 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 Sarahy Sauceda. These tests need not be, and therefore are not, approved by the [place] Food and Drug Administration. The tests are used for clinical purposes. Billing Codes Specimen Charges Stain Charges 94182 46227 32225 1 1 1 4 4:49 PM CDT [...] ERABLES Edited Result - Final DERMATOPATHOLOGY LABORATORY [facility] - Department of Dermatology [facility] Medicine [address] [place] [address], [address]rd Floor [address] [phone] documented in this encounter Visit Diagnoses Not on filedocumented in this encounter Care Teams Ornamental Ironworker Helper Relationship Specialty Start Date End Date Prashant Ramirez MD [address] [facility] [address] [place] [address] PCP - General Family Medicine 12/09/17 [place] [address] [facility] [address] [place] [address] Orthopedic Surgery 12/09/17 documented as of this encounter
--- OUTSIDE RECORDS SUMMARY | 2025-05-03 19:40 | XMS_ITS | Clinical Summary ---
Author Organization [facility] Address [address] [place] [address] Care Team Providers Care Candy Spreader Name Role Phone Michael Mullins MD Unavailable [phone] Prashant Ramirez MD Primary Care Provider + Source Comments [facility],non-owned Affiliates and Associated Physician Practices is amultiple site organization consisting of ambulatory clinics and hospital sitesin [place], [place], [place] and [place]. This disclosure is being madepursuant to the Care Everywhere program and may not contain all information available regarding this patient. 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 Gender Identity Not on file Sexual Orientation [...] TESTING 1945 MEDICARE AWV 12 MONTHS 1945 COVID-19 VACCINE (#1) 1950 DTAP/TDAP/TD VACCINES (1 - Tdap) 1964 PNEUMOCOCCAL VACCINE 50+ (1 of 2 - PCV) 1964 ZOSTER VACCINE (1 of 2) 11/16/1995 Respiratory Syncytial Virus (RSV) Vaccine Pt: or over 60 yrs (1 - 1-dose 75+ series) 2020 DEPRESSION SCREENING 07/14/2024 INFLUENZA VACCINE (#1) 2025 [...] this topic Medical Devices Implanted Type Area Bobbin Hauler Device Identifier Shelf Expiration Date Model / Serial / Lot Cmnt Bone Cblt 40gm Hvisc Strl Implanted:Qty: 1 on 02/16/2018 by Michael Mullins MD at [facility] Right: Knee [employer] 04/12/2019 [id number] / / [id number] Tray Tib 75mm Kn Cocr I Beam Implanted:Qty: 1 on 02/16/2018 by Michael Mullins MD at [facility] Right: Knee [employer] 10/19/2027 [id number] / / [id number] Cmpnt Fem Kn Rt Cr Cmnt Prm Vngrd Intlk 65mm Implanted:Qty: 1 on 02/16/2018 by Michael Mullins MD at [facility] Right: Knee [employer] 12/04/2027 [id number] / / [id number] Cmpnt Ptlr 28mm 1 Pg Wire Ascnt Arcm Kn Implanted:Qty: 1 on 02/16/2018 by Michael Mullins MD at [facility] Right: Knee [employer] 01/22/2023 [id number] / / [id number] Brng [id number] Vngrd Arcm Kn Ant Stab Implanted:Qty: 1 on 02/16/2018 by Michael Mullins MD at [facility] Right: Knee [employer] 12/26/2022 [id number] / / [id number] Insurance MEDICARE [facility] MED[facility]ARE [facility] Advance Directives * Full Code (Latest Code Status on File) Date Activated Date Inactivated Comments 02/16/2018 12:02 PM 02/18/2018 4:15 PM Care Teams Candy Spreader Relationship Specialty Start Date End Date Prashant Ramirez MD [address] [facility] [address] [place] [address] PCP - General Family Medicine 12/09/17 [place] [address] [facility] [address] [place] [address] Orthopedic Surgery 12/09/17
--- OUTSIDE RECORDS SUMMARY | 2025-05-03 19:40 | XMS_ITS | Clinical Summary ---
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
--- OUTSIDE RECORDS SUMMARY | 2025-05-03 19:40 | XMS_ITS | Encounter Summary ---
Author Organization [facility] Address [address] [facility] [place] [address] Care Team Providers Care Hardware Trainer Name Role Phone Michael Mulilns MD Unavailable [phone] Prashant Ramirez MD Primary Care Provider + Encounter Details Date Type Department Care Team (Late st Contact Info) Description 02/23/2020 Lab Requisition [facility] Care DermPath Lab [address] [facility], [place] [phone] Ismael Herrera MD [address] [place] [address] Social History Tobacco Use Types Packs/Day Years Used Date Smoking Tobacco: Never Smokeless Tobacco: Never Alcohol Use Standard Drinks/Week Comments No 0 (1 standard drink = 0.6 oz pur e alcohol) Comments Unknown Sex and Gender Information Value Date Recorded Sex Assigned at Not on file 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 0 3:57 PM [facility] DERMATOPATHOLOGY LABORATORY Gross Description Specimen A: Received is one formalin filled container labeled with the patient's name and designated ant vertex. The specimen consists of a shave biopsy measuring 1d3x1nx. Jar 0. Specimen B: Received is one formalin filled container labeled with the patient's name and designated mid vertex. The specimen consists of a shave biopsy measuring [id number]. Jar 0. Specimen C: Received is one formalin filled container labeled with the patient's name and designated post vertex. The specimen consists of a shave biopsy measuring 8g2s4tw, bisected. Jar 0. 0 3:57 PM [facility] DERMATOPATHOLOGY LABORATORY Microscopic Description Specimen A. SKIN, [...] examined. 0 3:57 PM [facility] DERMATOPATHOLOGY LABORATORY Disclaimer An external and internal positive and negative controls are appropriate for the histochemical, immunohistochemical and immunofluorescence stain(s) in this case (if any), except where stated explicitly. The performance characteristics of the stain(s) cited in this report were developed and its performance characteristic determined by the Dermatopathology Laboratory at [facility], directed by Dr. Sarahy Sauceda. These tests need not be, and therefore are not, approved by the [place] Food and Drug Administration. The tests are used for clinical purposes. Billing Codes Specimen Charges Stain Charges 94881 45560 [id number] 1 1 1 0 3:57 PM CDT [...] PATHOLOGY/CYTOLOGY ORD ERABLES Final Result DERMATOPATHOLOGY LABORATORY [facility] - Department of Dermatology [facility]/[address] [phone] documented in this encounter Visit Diagnoses Not on filedocumented in this encounter Care Teams Hardware Trainer Relationship Specialty Start Date End Date Prashant Ramirez MD [address] [facility] [address] [place] [address] PCP - General Family Medicine 12/09/[address] [place] [address] [facility] [address] [place] [id number] Orthopedic Surgery 12/09/17 documented as of this encounter
== END 2025-05-03 15:58 | disposition home or self-care (01) ==
PROVIDERS: PCP Nurse Practitioner Family; Visit Provider Nurse Practitioner Family
DX: D64.9 Anemia, unspecified (principal); E11.9 Type 2 diabetes mellitus without complications; R74.8 Abnormal levels of other serum enzymes; E04.1 Nontoxic single thyroid nodule; I10 Essential (primary) hypertension; E78.5 Hyperlipidemia, unspecified
CPT/HCPCS: 36415; 80053; 80061; 82043; 82607; 82728; 83036; 83540; 83550; 84439; 84443; 84481; 85025

== ENCOUNTER 2025-05-06 08:25 | Outpatient (CLI) | payer MEDICARE, BC, SELFPAY ==
--- NOTE | ~2025-05-06 | US_ITS ---
US abdomen limited Indication: R74.8 - Abnormal levels of other serum enzymes Comparison: None Technique: Mcclure-scale and color Doppler images were obtained. Findings: LIVER: The liver contours appear nodular. . GALLBLADDER/BILIARY: Post cholecystectomy. CBD 6 mm. [place] sign negative. PANCREAS: The pancreas appears abnormal with ill-defined complex echogenicity noted involving the pancreatic head incompletely evaluated Right Kidney: Right kidney 11.7 cm, normal. Impression: 1. Cirrhotic disease of the liver suspected. Pancreatic lesion is not excluded. Contrast-enhanced MRI recommended Reviewed, dictated and finalized at location P. Impression: 1. Cirrhotic disease of the liver suspected. Pancreatic lesion is not excluded. Contrast-enhanced MRI recommended
--- NOTE | ~2025-05-06 | US_ITS ---
Clinical history:Thyroid nodule EXAM:Ultrasound thyroid TECHNIQUE:Multiple static grayscale images and color Doppler images were obtained of the thyroid gland. Comparisons:None available FINDINGS: Right thyroid lobe measures 3.9 x 1.5 1.4 cm and is heterogeneous. Left thyroid lobe measures 4.1 x 1.4 x 1.1 cm and is heterogeneous. Isthmus measures 0.1 cm and is heterogeneous. There is a 0.3 x 0.3 cm hypoechoic solid nodule in the right mid thyroid lobe. TR 4. There is a 0.5 x 0.2 x 0.6 cm hypoechoic solid nodule in the left mid thyroid lobe. TR 4. IMPRESSION: 1. Thyroid gland is heterogeneous. 2. Bilateral thyroid nodules as above. A follow-up thyroid ultrasound in 6 months is suggested. Reviewed, dictated and finalized at location Q. IMPRESSION: 1. Thyroid gland is heterogeneous. 2. Bilateral thyroid nodules as above. A follow-up thyroid ultrasound in 6 silvino hs is suggested.
== END 2025-05-06 08:26 | disposition home or self-care (01) ==
LOC: MICIMG 08:25
PROVIDERS: PCP Nurse Practitioner Family; Visit Provider Nurse Practitioner Family
DX: D64.9 Anemia, unspecified (principal); E04.2 Nontoxic multinodular goiter; R74.8 Abnormal levels of other serum enzymes
CPT/HCPCS: 76536; 76705